=== PATIENT | male | born 1940 | race Caucasian/White ===

== ENCOUNTER → 2019-05-08 08:41 | Outpatient (CLI) | payer OTHER, SELFPAY | PROVIDERS: PCP Family Medicine; Referring Provider Urology; Visit Provider Urology | DX: N39.0 Urinary tract infection, site not specified (principal) | CPT/HCPCS: 87086; 87088; 87186 ==

== ENCOUNTER 2020-04-26 05:11 | Day surgery (SDC) | payer SELFPAY, OTHER ==
--- NOTE | 2020-04-24 13:47 | EKG12_ITS ---
Test Reason : PRE SURGERY Blood Pressure : / mmHG Vent. Rate : 070 BPM Atrial Rate : 070 BPM P-R Int : 132 ms QRS Dur : 088 ms QT Int : 386 ms P-R-T Axes : 074 080 021 degrees QTc Int : 416 ms Normal sinus rhythm Normal ECG Confirmed by PARUL JAMESON, JAVY ([id number]), editor producer SUDHEER NIELSON ([id number]) on 04/25/2020 9:21:06 AM Referred By: Lexx Paez Confirmed By:JAVY TERAN MD
[2020-04-24 15:32] LABS: Color, Urine Yellow (Yellow); Glucose, Dipstick Normal (Normal); Ketone-Dipstick Negative (Negative); Leukocyte Esterase-Dipstick 25 /ul (Negative); Nitrite-Dipstick Negative (Negative); Occult Blood-Urine 10 /ul (Negative); Protein-Dipstick Negative (Negative); Urine Bilirubin Dipstick Negative (Negative); Urine Clarity Sl. Cloudy (Clear); Urine Urobilinogen Normal (Normal)
[2020-04-26] VITALS (10 sets, daily range): BP systolic 124–166; BP diastolic 52–75; PULSE 60–90; RESP 16–18; TEMP 36.1–37.1; O2SAT 93–98; BMI 22.5
--- NOTE | 2020-04-26 | PROS_PTH ---
PATIENT: ARRON SUMMERS LOC: [facility] [place] U#:[id number] AGE/SX: 80/M ROOM: RE04/26/[address]: Dr. Lexx Paez MD : [id number] BED: DIS: 04/27/2020 SPEC #: [id number] RECD: 04/26/20 10:06 STATUS: ROXY LILI #: [id number] ARANZA: 04/26/20 00:[address]: Lexx Paez DEPT: SURGICAL PATHOLOGY RECD BY: Joaquín Mcclain ENTERED: 04/26/20 10:06 SP TYPE: TURP OTHR DR: Dr. Efrain Barahona DO Tissues: Prostate, NOS Procedures: Surgery Specimen Level IV HEADER OPERATION: Cysto, TUR prostate, Olympus PRE-OP DIAGNOSIS: Urinary retention TISSUE SUBMITTED: Prostate chips MICROSCOPIC DIAGNOSIS Prostate, transurethral resection: Benign nodular hyperplasia, glandular and stromal types. Chronic inflammation. Dystrophic microcalcifications. Urothelium with associated mild chronic inflammation. AM:cory 04/29/2020 MICROSCOPIC DESCRIPTION Slides are reviewed. GROSS DESCRIPTION Received is one container labeled with the patient's name and designated prostate chips. The specimen consists of multiple irregular fragments of pink-sheehan, rubbery, soft tissue that in aggregate weigh 18.6 gm and measure in aggregate 6 x 5 x 2.5 cm. [place] Runner tissue is submitted in ten cassettes. / SJ:cory 04/26/20 TC:3 CPT: 37515
[2020-04-26] MEDS: Lactated Ringers 1,000 ML 100 ML IV ×2 (06:21→09:37)
--- NOTE | 2020-04-26 07:23 | PCM.HP.STD ---
Problem List (1) Urinary retention Status: Acute History of Present Illness Date of Admission: 04/26/20 Chief Complaint: Retention of urine due to BPH The patient is a 80 year old male with history of BPH with obstruction he has developed urinary retention and today we plan to proceed with a TURP Past Medical History Allergies No Known Allergies Allergy (Verified 04/19/20 14:02) Home Medications: Ambulatory Orders Medication Instructions Recorded Cephalexin [Keflex] 500 mg PO Q6 04/19/20 Doxazosin Mesylate [Cardura] 8 mg PO DAILY 04/19/20 Surgical History: no surgical history Smoking Status: Former smoker Tobacco Use: Chew Review of Systems Constitutional: Denies: Chills, Fever, Weight Change HEENT: Denies: Head Aches, Sinus Congestion, Sinus Drainage Cardiovascular: Denies: Chest Pain, Palpitations Respiratory: Denies: Cough, Shortness of breath at rest, Sputum production Gastrointestinal: Denies: Abdominal Pain, Nausea, Vomiting Genitourinary: Denies: Dysuria Musculoskeletal: Denies: Joint Pain, Joint Tenderness Skin: Denies: Rash, Wounds Neurological: Denies: Numbness, Tingling, Focal weakness Psychiatric: Denies: Anxiety, Depression, Homicidal Ideations, Suicidal Ideations Hematologic/ Lymphatic: Denies: Easy Bruising, Easy Bleeding VTE Information - Inpt Only VTE Present on Admission: No - Physical Exam Vitals/I&O's: Vital Signs Temp Pulse Resp BP Pulse Ox 98.6 F 67 16 166/64 H 98 04/26/20 05:47 04/26/20 05:47 04/26/20 05:47 04/26/20 05:47 04/26/20 05:47 Oxygen Delivery Method Room Air Weight: 63.4 kg Body Mass Index (BMI) 22.5 General: Alert, Oriented x3, Cooperative HEENT: Atraumatic, PERRLA, EOMI, Normocephalic Neck: Supple, No JVD, Negative Carotid Bruits Lungs: Clear to auscultation, Normal air movement Cardiovascular: Regular rate, No murmurs Abdomen: Bowel Sounds Present, Soft, Non Tender Extremities: No edema, Capillary Refill Less than 3 Seconds Skin: No rashes, No breakdown Musculoskeletal: No Tenderness to Palpation of Joints or Extremities Neurological: Cranial nerves II-XII grossly intact Psych/Mental Status: Normal Affect, Appropriate Microbiology Past 72 Hours 04/24/20 13:55 Interface Orders SARS-CoV-2 Antigen (Rapid) - Final Current Medications Cefazolin Sodium 2 gm/ Sodium (Chloride) 110 mls @ 150 mls/hr IV PREOP ONE Stop: 04/26/20 08:13 Lactated Ringer's () 1,000 mls @ 100 mls/hr IV .Q10H CONNOR Last Admin: 04/26/20 06:21 Dose: 100 mls/hr Documented by: Assessment/Plan All Active Problems Urinary retention (Acute) Plan to proceed with a TURP
--- NOTE | 2020-04-26 07:27 | DCINST_ITS ---
Discharge Diet: Light diet - advance as tolerated Discharge Activity: Return to Normal Activity Suture Line Care: Avoid Pulling/Pushing, Avoid Pinching/Bending Instructions: Transurethral Resection of the Prostate (TURP): Home Recovery Allergies/Adverse Reactions: Allergies No Known Allergies Allergy (Verified 04/19/20 14:02) Medications to take at Discharge Cephalexin [Keflex] 500 mg PO Q6 04/19/20 Doxazosin Mesylate [Cardura] 8 mg PO DAILY 04/19/20 Cephalexin [Keflex] 500 mg PO Q8 #15 cap 04/26/20 The following prescriptions were given: Cephalexin [Keflex] 500 mg PO Q8 #15 cap Transmission Status: Pending to [facility] Primary Care Physician: Efrain Barahona DO [Primary Care Provider] - Test Results: Test results from this visit will be discussed in further detail at your follow- up appointment, if applicable. Please Follow Up With: Lexx Paez MD When: in 2 weeks, please call to make an appointment. Proposed Discharge Date: 04/27/20
[2020-04-26] MEDS: Cefazolin 2 GM in 0.9% Normal Saline 100 ML IV (07:35)
[2020-04-26] MEDS: Lubricating Jelly 60 GM Tube 30 GM TOPICAL (07:38)
--- NOTE | 2020-04-26 08:33 | PCM.OPRPT ---
Problem List (1) Urinary retention Status: Acute Report of Operation Date of Procedure: 04/26/20 Pre-Operative Diagnosis: BPH with retention of urine and obstruction Post-Operative Diagnosis: Same Surgery/Procedure Performed:: Transurethral section of prostate Description of Surgical Findings:: In the preoperative setting I discussed with the patient how the surgery would be done with expect afterwards. We discussed how a prostate resection is done and we discussed the risk of the surgery including, bleeding, infection, retrograde ejaculation, changes with ejaculation or intercourse,. We discussed the possibility that the resection of the prostate may not alleviate his urinary symptoms. We discussed the small risk of developing scar tissue along the urethral channel and strictures. We also discussed the chance of the prostate could grow back and he may need further surgery or treatment in the future for prostate problems. Patient was taken back to the operating room, timeout procedure was performed, he was identified and marked and placed on the operating room table. He underwent general anesthesia. He was placed in dorsolithotomy position. Penis and testicles were prepped and draped in usual sterile fashion. Went into the bladder using the visual obturator with a resectoscope. Once inside the bladder identified the right and left ureteral orifice. I then identified the prostate and the anatomy of the prostate. I marked out the area of the sphincter and the verumontanum was identified. I then proceeded with the prostate resection first resected the median lobe. And then resected the right lobe of the prostate. Then to resect the left lobe of the prostate. I then resected the apical tissue of the prostate. Made sure that there was no injury to the sphincter or the verumontanum was still intact. At the end of the resection all the chips were Ellik out of the bladder. I then identified the left and right ureteral orifice and these were confirmed to be in good position and effluxing and not injured. The resectoscope was removed, a 22 Belarusian catheter was placed into the bladder on continuous irrigation. And the urine was fairly light pink color and draining normally. He was taken back to the PACU in good condition. Type of Anesthesia:: General Drains: 22fr 3 way [place] - Admit VTE Documentation VTE Present on Admission: No VTE Mechan Device Prophylaxis: SCD's
[2020-04-26] MEDS: Pantoprazole Sodium 40 MG Tablet PO (11:02)
[2020-04-26] MEDS: Docusate Sodium 100 MG Capsule PO ×2 (11:02→20:27)
[2020-04-26] MEDS: 0.9% Normal Saline 1,000 ML 75 ML IV (14:34)
--- NOTE | 2020-04-26 17:14 | NURSING ---
reviewed and agree with documentation by JARED Madera
[2020-04-26] MEDS: Doxazosin 4 MG Tablet 8 MG PO (20:27)
[2020-04-27] MEDS: 0.9% Normal Saline 1,000 ML 75 ML IV (02:46)
[2020-04-27 02:54] VITALS: BP 129/66; PULSE 67; RESP 18; TEMP 36.7; O2SAT 98
[2020-04-27 08:26] VITALS: BP 150/72; PULSE 69; RESP 18; TEMP 36.8; O2SAT 94
[2020-04-27] MEDS: Pantoprazole Sodium 40 MG Tablet PO (09:01)
[2020-04-27] MEDS: Docusate Sodium 100 MG Capsule PO (09:01)
[2020-04-27 10:07] VITALS: BMI 22.6
[2020-04-27 13:11] VITALS: BP 150/72; PULSE 69; RESP 18; TEMP 36.8; O2SAT 69
== END 2020-04-27 13:23 | disposition home or self-care (01) ==
LOC: SDC 05:16 → AC 05:17 → MS3 08:10
PROVIDERS: Anesthesiology; PCP Family Medicine; Referring Provider Urology; Visit Provider Urology
PROC: (CPT 52601; principal; 2020-04-26 07:20)
DX: N40.1 Benign prostatic hyperplasia with lower urinary tract symptoms (principal); N41.1 Chronic prostatitis; N13.8 Other obstructive and reflux uropathy; R33.8 Other retention of urine; R39.14 Feeling of incomplete bladder emptying; R39.12 Poor urinary stream; R35.1 Nocturia; N32.89 Other specified disorders of bladder; Z20.822 Contact with and (suspected) exposure to COVID-19; Z87.891 Personal history of nicotine dependence
CPT/HCPCS: 00914; 52601; 81002; 87426; 88305; 93005; C9803; J7030; J7120; J2405

== ENCOUNTER 2021-06-09 13:14 | Outpatient (CLI) | payer SELFPAY, OTHER ==
--- NOTE | 2021-06-09 13:29 | ECHOD_ITS ---
Reason For Study: HYPERTENSION Procedure This was a 2D Doppler, Color Flow transthoracic echocardiogram. The study was technically difficult. Exam performed in department. Left Ventricle Normal LV size. Left ventricular systolic function is normal. The estimated ejection fraction is 55 %. Stage 1 diastolic dysfunction. No regional wall motion abnormalities noted. Right Ventricle Normal RV size. Normal systolic function. Atria Normal left atrium. Normal right atrium. Mitral Valve There is mild to moderate mitral annular calcification. Mild (1+) eccentric mitral valve insufficiency. Tricuspid Valve Normal tricuspid valve. Mild (1+) tricuspid valve insufficiency. Pulmonary artery systolic pressure is 38 mmHg. Aortic Valve Trisinus/trileaflet aortic valve. Mild focal aortic valve calcification. Peak aortic valve gradient 54 mmHg. Mean aortic valve gradient 32 mmHg. Calculated aortic valve area (continuity equation) is 0.9 cm2. Mild (1+) aortic valve insufficiency. Pulmonic Valve Normal pulmonic valve. Great Vessels Normal aortic root. The pulmonary artery is normal size. Normal inferior vena cava. Pericardium/Pleural No pericardial effusion. MMode/2D Measurements & Calculations LVIDd: 4.4 cm IVSd: 1.1 cm LVOT diam: 2.0 cm LVIDs: 3.1 cm LVPWd: 1.2 cm LVOT area: 3.1 cm2 RVDd: 2.8 cm FS: 29.4 % Ao root diam: 3.2 cm LAV(MOD-bp): 50.2 ml LVAd ap4: 34.8 cm2 LAV(MOD-bp) Indexed: 29.1 ml/m2 LVLd ap4: 8.6 cm LAV(MOD-sp2): 51.3 ml EDV(MOD-sp4): 115.0 ml LAV(MOD-sp4): 47.5 ml EDV(sp4-el): 118.9 ml LVAs ap4: 21.9 cm2 LVLs ap4: 7.3 cm ESV(MOD-sp4): 54.7 ml ESV(sp4-el): 56.1 ml EF(MOD-sp4): 52.5 % EF(sp4-el): 52.8 % LVAd ap2: 39.7 cm2 SV(MOD-sp4): 60.3 ml SV(MOD-sp2): 84.4 ml LVLd ap2: 8.8 cm EDV(MOD-sp2): 152.7 ml EDV(sp2-el): 151.7 ml LVAs ap2: 25.0 cm2 LVLs ap2: 7.8 cm ESV(MOD-sp2): 68.3 ml ESV(sp2-el): 68.1 ml EF(MOD-sp2): 55.2 % SV(sp4-el): 62.8 ml LA dimension(2D): 3.4 cm LA A4 area: 17.6 cm2 RA A4 area: 13.7 cm2 Time Measurements MV dec time: 0.25 sec Doppler Measurements & Calculations MV E max bradley: 112.8 cm/sec Lat Peak E' Bradley: 9.2 cm/sec Med Peak E' Bradley: 8.4 cm/sec MV A max bradley: 116.6 cm/sec E/E' lat: 12.3 E/E' med: 13.4 MV E/A: 0.97 Ao V2 max: 368.0 cm/sec AI max bradley: 487.0 cm/sec LV V1 max: 107.1 cm/sec Ao max P.2 mmHg AI max P.9 mmHg LV V1 max P.6 mmHg Ao V2 mean: 274.6 cm/sec LV V1 mean P.2 mmHg Ao mean P.7 mmHg AI dec slope: 363.4 cm/sec2 LV V1 mean: 68.6 cm/sec Ao V2 VTI: 84.9 cm AI P1/2t: 392.6 msec LV V1 VTI: 25.2 cm PAMELA(I,D): 0.93 cm2 PAMELA(V,D): 0.91 cm2 SV(LVOT): 78.7 ml PA V2 max: 108.7 cm/sec TR max bradley: 294.8 cm/sec TR max P.8 mmHg ECHO/Echo Complete Interpretation Summary Normal LV size. Left ventricular systolic function is normal. The estimated ejection fraction is 55 %. Stage 1 diastolic dysfunction. Mean aortic valve gradient 32 mmHg. Calculated aortic valve area (continuity equation) is 0.9 cm2. Pulmonary artery systolic pressure is 38 mmHg. There is mild to moderate mitral annular calcification. Ordering Physician: Abdiel Barclay Referring Physician: ROXANA HENRIQUEZ Performed By: Maame Nguyen RDCS
== END 2021-06-09 23:59 | disposition home or self-care (01) ==
PROVIDERS: PCP Family Medicine; Referring Provider Internal Medicine Cardiovascular Disease; Visit Provider Internal Medicine Cardiovascular Disease
DX: R03.0 Elevated blood-pressure reading, without diagnosis of hypertension (principal); R01.1 Cardiac murmur, unspecified
CPT/HCPCS: 93306

== ENCOUNTER 2022-06-07 09:05 | Inpatient (IN) | payer OTHER, SELFPAY ==
[2022-06-07] VITALS (11 sets, daily range): BP systolic 115–229; BP diastolic 62–111; PULSE 74–133; RESP 14–28; TEMP 35.9–36.7; O2SAT 85–98; BMI 24.0; BMI 22.1
--- NOTE | 2022-06-07 09:14 | EKG12_ITS ---
Test Reason : SOB Blood Pressure : / mmHG Vent. Rate : 109 BPM Atrial Rate : 109 BPM P-R Int : 120 ms QRS Dur : 084 ms QT Int : 362 ms P-R-T Axes : 069 067 084 degrees QTc Int : 487 ms Sinus tachycardia with Premature supraventricular complexes and with frequent Premature ventricular c omplexes Nonspecific T wave abnormality Abnormal ECG Confirmed by PARUL JAMESON, JAVY ([id number]), publication editor SUDHEER NIELSON ([id number]) on 06/09/2022 8:29:38 AM Referred By: GEORGE Confirmed By:JAVY TERAN MD
--- NOTE | 2022-06-07 09:17 | EX.ED.DYSGE1 ---
HPI History of Present Illness Chief Complaint: Shortness of Breath Informant: patient Onset/Context/Timing Onset: Today Narrative Narrative: Patient presents via EMS secondary to shortness of breath. He states symptoms started this morning. He denies chest pain. Patient has a known history of CHF but do not see any history of COPD or asthma. He is wheezing, and when asked he states lately he has been getting short of breath with episodes of wheezing. He denies significant fever or cough. Nursing staff noted the patient stood at bedside to use the urinal on arrival. He quickly became short of breath and his O2 sat was 85% on room air. He was tachycardic up to the 140s. 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 Psoriasis Urinary retention Home Medications lisinopril 20 mg tablet 20 mg PO DAILY #90 tabs 06/11/21 [Rx Last Taken 06/06/22] furosemide 40 mg tablet (Lasix) 40 mg PO DAILY #90 tabs 06/19/21 [Rx Last Taken 06/07/22] aspirin 325 mg tablet 325 mg PO DAILY 02/25/22 [History Last Taken 06/06/22] Allergy/AdvReac Type Severity Reaction Status Date / Time No Known Allergies Allergy Verified 02/25/22 09:48 Surgical History H/O cystoscopy (05/20/21) H/O transurethral resection of prostate (04/2020) History of excision of pilonidal cyst (05/20/21) History of hand surgery History of right knee surgery Social History Smoking Status: Former smoker alcohol intake: never substance use type: does not use caffeine: Yes maria fernanda/lutheran: Fitz ROS ROS ED Constitutional Constitutional ED: Denies chills or fever(s) Eyes Eyes: Denies change in vision or discharge from eye(s) ENT ENT ED: Denies discharge from eye(s), rhinorrhea or sore throat Cardiovascular Cardiovascular: Denies chest pain or palpitations Respiratory/Chest Respiratory/Chest: Reports dyspnea; Denies cough Gastrointestinal Gastrointestinal: Denies abdominal pain, nausea or vomiting Musculoskeletal Musculoskeletal: Denies back pain or extremity pain Integumentary Denies Abrasions or rash Neurologic Neurologic: Denies headache(s) or weakness Psychiatric Psychiatric: Denies anxiety or depression Allergic/Immunologic Allergic/Immunologic ED: Denies lip swelling or urticaria EXAM Physical Exam Const Vital Signs: 06/07/22 09:06 06/07/22 09:15 06/07/22 09:36 Temperature 96.6 F L Temperature Source Temporal Pulse Rate 133 H 118 H Respiratory Rate 28 H 24 H Respiratory Effort Short of Breath Labored Accessory Muscle Use Pursed Lip Respiratory Depth Deep Respiratory Pattern Tachypnea Tachypnea Blood Pressure 229/111 H Blood Pressure Mean 150 Pulse Ox 85 Oxygen Delivery Method Room Air Nasal Cannula Oxygen Flow Rate (L/min) 6 06/07/22 09:36 06/07/22 10:23 06/07/22 11:41 Temperature Temperature Source Pulse Rate 101 H 92 Respiratory Rate 14 Respiratory Effort Short of Breath Labored Respiratory Depth Respiratory Pattern Tachypnea Blood Pressure 149/72 H Blood Pressure Mean 97 Pulse Ox 98 95 94 Oxygen Delivery Method Nasal Cannula Nasal Cannula Nasal Cannula Oxygen Flow Rate (L/min) 3 3 3 Positive well nourished and well developed General Appearance ED: well developed HEENT Reports normocephalic and head/scalp atraumatic Eyes PERRL and EOMs intact bilaterally Neck supple Chest Wall inspection of chest normal and palpation of chest normal Resp Resp Narrative: Tachypneic with tight expiratory wheezes throughout. Cardio Rate: tachycardic Rhythm: abnormal rhythm irregularly irregular GI non-tender Palpation: soft Extremity normal to inspection Neuro oriented x3 and no sensory deficits noted Sensorium / Orientation: alert Motor Exam: strength 5/5 throughout Psych mental status grossly normal Skin no rashes or lesions noted MDM MDM MDM Narrative Medical decision making narrative: Patient placed on manager data warehouse. EKG obtained to evaluate for cardiac arrhythmia/ischemia. Chest x-ray obtained to evaluate for acute lung pathology, cardiac size, or mediastinal abnormality. Labwork obtained to evaluate for leukocytosis, anemia, and electrolyte derangement. Patient given IV Solu-Medrol along with breathing treatments. History & Record Review Discussion w/independent historian: EMS personnel Lab Data Attestation: I reviewed the patient's lab results. Labs: Laboratory Results - last 24 hr 06/07/22 06/07/22 06/07/22 09:17 09:17 09:17 WBC 12.9 H RBC 5.37 Hgb 14.9 Hct 45.6 MCV 84.9 MCH 27.7 MCHC 32.7 RDW Std Deviation 43.0 RDW Coeff of Zhao 13.9 Plt Count 326 MPV 10.6 Immature Gran % (Auto) 0.200 Neut % (Auto) 66.4 Lymph % (Auto) 20.6 [place] % (Auto) 7.5 Eos % (Auto) 4.5 Baso % (Auto) 0.8 Absolute Neuts (auto) 8.6 H Absolute Lymphs (auto) 2.66 Nucleated RBC % 0 D-Dimer Quant (PE/DVT) 1.32 H* Sodium 142 Potassium 3.5 Chloride 107 Carbon Dioxide 29.0 Anion Gap 6 BUN 24 H Creatinine 1.21 Estim Creat Clear Calc 41.74 Est GFR (MDRD) Af Amer 74 Est GFR (MDRD) Non-Af 61 BUN/Creatinine Ratio 19.8 Glucose 132 H Calcium 8.8 Total Bilirubin 0.80 Direct Bilirubin 0.23 AST 17 ALT 25 Alkaline Phosphatase 146 H Troponin I High Sens 92 H B-Natriuretic Peptide Total Protein 8.9 H Albumin 4.2 Globulin 4.7 H Urine Color Urine Clarity Urine pH Ur Specific [place] Urine Protein Urine Glucose (UA) Urine Ketones Urine Occult Blood Urine Nitrite Urine Bilirubin Urine Urobilinogen Ur Leukocyte Esterase 06/07/22 06/07/22 06/07/22 09:17 11:30 11:54 WBC RBC Hgb Hct MCV MCH MCHC RDW Std Deviation RDW Coeff of Zhao Plt Count MPV Immature Gran % (Auto) Neut % (Auto) Lymph % (Auto) [place] % (Auto) Eos % (Auto) Baso % (Auto) Absolute Neuts (auto) Absolute Lymphs (auto) Nucleated RBC % D-Dimer Quant (PE/DVT) Sodium Potassium Chloride Carbon Dioxide Anion Gap BUN Creatinine Estim Creat Clear Calc Est GFR (MDRD) Af Amer Est GFR (MDRD) Non-Af BUN/Creatinine Ratio Glucose Calcium Total Bilirubin Direct Bilirubin AST ALT Alkaline Phosphatase Troponin I High Sens 250 H* B-Natriuretic Peptide 1076.8 H Total Protein Albumin Globulin Urine Color Straw Urine Clarity Clear Urine pH 7.0 Ur Specific [place] 1.010 Urine Protein Negative Urine Glucose (UA) Normal Urine Ketones Negative Urine Occult Blood 10 H Urine Nitrite Negative Urine Bilirubin Negative Urine Urobilinogen Normal Ur Leukocyte Esterase Negative Radiography Chest X-Ray - ED: 1 View, Read by ED Physician and CHF Diagnostic Testing: Clinical Impression(s) from Imaging Studies Chest X-Ray 06/07/22 09:41 IMPRESSION: Acute or chronic interstitial lung disease, possibly atypical pneumonia. Electronically Signed: Felice Smith MD at 10:23 EDT Reading Location ID and State: [id number] / Night Up Tel , Service support , Chest CTA 06/07/22 09:52 IMPRESSION: No CT evidence of pulmonary embolism. Moderate bilateral pleural effusions with bibasilar atelectasis. Electronically Signed: Felice Smith MD at 11:37 EDT Reading Location ID and State: [id number] / Night Up Tel , Service support , EKG Initial EKG: Attestation: I personally reviewed and interpreted this EKG as follows: Interpretation: Sinus Tachycardia (Sinus tach at 109 with PACs. No acute ST change.) Differential Diagnosis Chest pain/SOB: pulmonary embolism Reason(s) PE less likely: Positive for Other (CTA chest with no evidence of PE.), ACS ACS: Positive for EKG without ischemia and history not suggestive of ischemia pain and pneumonia Reason(s) pneumonia less likely: Positive for symptoms not consistent with acute infection Management Discussion w/another healthcare provider: Hospitalist Treatment and Re-Evaluation :: CBC reveals a white count of 12.9 with no left shift. Chemistry studies unremarkable. Initial troponin is 92. BNP is 1076. D-dimer is 1.32. Following breathing treatments patient's lung sounds have cleared considerably. Heart rate is improved and oxygen has been turned down to 3 L. He is satting 96% on 3 L. Portable chest x-ray per my interpretation reveals CHF. CTA of the chest is obtained and reveals no evidence of pulmonary embolism. At this time patient is given IV Lasix. Nursing staff did ask about placing a [place] catheter as the patient was having frequent at times at urination with only small output and complaining of suprapubic pain. Callaway catheter was placed without difficulty. I will add a UA at this time to ensure no infection. Delta troponin is being drawn currently. Patient will require admission and I will speak with the hospitalist. Addendum: Patient's repeat troponin returns at 250. Patient continues to deny any chest pain. Discharge Plan Dx/Rx/DC Orders Clinical Impression: CHF (congestive heart failure), Respiratory failure, Elevated troponin, Non-ST elevation [place] (NSTEMI) Disposition Disposition: Acute Care Hospital [facility]
[2022-06-07 09:25] LABS: Absolute Lymphocyte Count 2.66 X10^3/uL (0.83-4.51); Absolute Neutrophil Count 8.6 X10^3/uL (2.0-7.7); Basophil% 0.8 % (0-1); Eosinophil# 0.58 X10^3/uL; Eosinophils% 4.5 % (0-5); Hematocrit 45.6 % (40-54); Hemoglobin 14.9 g/dL (13.0-16.5); Lymphocyte # 2.66 X10^3/ul (0.83-4.51); Lymphocyte % 20.6 % (19-41); Mean Corp Hgb Conc 32.7 g/dL (32-36); Mean Corpuscular Hgb 27.7 pg (27.0-32.0); Mean Corpuscular Volume 84.9 fL (80-94); Mean Platelet Vol. 10.6 fl (6.2-12.0); Monocyte# 0.97 X10^3/uL; Monocyte% 7.5 % (0-10); NRBC Flagged by Analyzer 0 % (0-5); Neutrophil # 8.57 X10^3/uL (2.7-7.7); Neutrophil % 66.4 % (47-70); Platelet Count 326 K/mm3 (150-450); RBC Distribution Width CV 13.9 % (11.6-14.6); Red Blood Count 5.37 M/mm3 (4.6-6.2); White Blood Count 12.9 K/mm3 (4.4-11.0)
[2022-06-07] MEDS: MethylPREDNISolone 125 MG/2 ML Vial IV (09:25)
[2022-06-07] MEDS: Ipratropium/Albuterol Sulfate 3 ML AMPUL.NEB INHALATION (09:25)
[2022-06-07] MEDS: Albuterol 2.5 MG/3 ML VIAL.NEB. INHALATION ×2 (09:35)
[2022-06-07 09:41] LABS: D-Dimer Quantitative (DVT/PE) 1.32 FEU/ug/m (0.27-0.49)
--- NOTE | 2022-06-07 09:41 | RAD_ITS ---
STUDY: X-RAY CHEST REASON FOR EXAM: Male, 82 years old. sob TECHNIQUE: Single AP portable view of the chest. COMPARISON: None. FINDINGS: Reticular opacities within the lungs consistent with acute or chronic interstitial lung disease, possibly atypical pneumonia. There is no demonstrated pleural abnormality. Normal size heart. Normal mediastinum and maria elena. Normal visualized pulmonary arteries. Normal visualized aortic arch and descending thoracic aorta. Normal visualized thoracic spine. Normal visualized ribs, clavicles, and shoulders. There is no demonstrated abnormality of the visualized soft tissue structures of the upper abdomen. RAD/Chest 1 View (Portable) IMPRESSION: Acute or chronic interstitial lung disease, possibly atypical pneumonia. Electronically Signed: Felice Smith MD at 10:23 EDT ,
[2022-06-07 09:46] LABS: BNP,B-Type NATRIURETIC PEPTIDE 1076.8 pg/mL (0-100)
--- NOTE | 2022-06-07 09:46 | CPS ---
Albuterol discontinued due to an increase in patient heart rate, 120's
[2022-06-07 09:49] LABS: AST(SGOT) 17 U/L (15-37); Alanine Aminotransfer ALT/SGPT 25 U/L (16-61); Albumin, Serum 4.2 g/dL (3.2-5.0); Alkaline Phosphatase 146 U/L (45-117); Anion Gap 6 (5-15); BUN 24 mg/dL (7-18); BUN/Creat Ratio 19.8 RATIO (10-20); Bilirubin, Direct 0.23 mg/dL (0.00-0.30); Calcium,Total 8.8 mg/dL (8.5-10.1); Chloride 107 mmol/L (98-107); Creatinine, Serum 1.21 mg/dL (0.70-1.30); EST Glomerular Filtration Rate 61 mL/min (>60); Est Glom Filt Rate - Afr Amer 74 mL/min (>60); Estimated Creatinine Clearance 41.74 ml/min; Globulin 4.7 g/dL (2.2-4.2); Glucose 132 mg/dL (74-106); Potassium 3.5 mmol/L (3.5-5.1); Protein, Total 8.9 g/dL (6.4-8.2); Sodium Level 142 mmol/L (136-145); Troponin-I HS (w/2H Reflex) 92 pg/mL (3.0-78.0)
--- NOTE | 2022-06-07 09:52 | CT_ITS ---
STUDY: CTA CHEST REASON FOR EXAM: Male, 82 years old. pulmonary embolism RADIATION DOSAGE (If Supplied By Facility): CTDIvol = ( 8.94 ) mGy, DLP = ( 219.5 ) mGycm TECHNIQUE: The examination was performed with the intravenous administration of IV 100mL Isovue-370. Post-processing of the angiographic images was performed, with multiplanar reformation and 3D reconstruction. Individualized dose optimization techniques were used for this CT. COMPARISON: None. FINDINGS: Normal enhancement of the main pulmonary artery and right and left pulmonary arteries. Normal enhancement of the bilateral peripheral pulmonary arteries. There is no demonstrated pulmonary embolism. Normal thoracic aorta and visualized great vessels. There is no demonstrated aortic dissection. Normal heart and pericardium. Normal mediastinum. Normal hilar regions. Normal visualized trachea and bronchi. The lungs are well expanded. Mild bilateral apical scarring. Mild emphysema. Moderate bilateral pleural effusions with bibasilar atelectasis. Normal chest wall structures. Normal osseous structures. Normal visualized upper abdomen. CT/CTA Chest W/WO Contrast IMPRESSION: No CT evidence of pulmonary embolism. Moderate bilateral pleural effusions with bibasilar atelectasis. Electronically Signed: Felice Smith MD at 11:37 EDT ,
--- NOTE | 2022-06-07 10:00 | ED.RN ---
attemptin to urinate multiple times with very small amounts. c/ pain to lower abd. bladder scan reads greater than 500cc dr yun notified. order for catheter.
[2022-06-07 11:22] LABS: Reflex Troponin-HS? (from REC) Y
[2022-06-07] MEDS: Furosemide 40 MG/4 ML Vial IV ×2 (11:49→17:32)
[2022-06-07 11:57] LABS: Bacteria 0 SEEN /hpf (None Seen); Mucous, Urine 0 SEEN /hpf (<or=2+); Red Blood Cells-Urine 0 SEEN /hpf (0-5); Squamous Epithelial Cells - UA 0 SEEN /hpf (0-5); White Blood Cells 0 SEEN /hpf (0-5)
[2022-06-07 11:57] LABS: Troponin-I HS 250 pg/mL (3.0-78.0)
[2022-06-07 11:58] LABS: Color, Urine Straw (Yellow); Glucose, Dipstick Normal (Normal); Ketone-Dipstick Negative (Negative); Leukocyte Esterase-Dipstick Negative /ul (Negative); Nitrite-Dipstick Negative (Negative); Occult Blood-Urine 10 /ul (Negative); Protein-Dipstick Negative (Negative); Urine Bilirubin Dipstick Negative (Negative); Urine Clarity Clear (Clear); Urine Urobilinogen Normal (Normal)
--- NOTE | 2022-06-07 12:14 | PCM.HP.STD ---
[facility] - General General Date of Admission: 06/07/22 Date of Service: 06/07/22 Chief Complaint: Sudden onset of shortness of breath in the morning today. HPI Narrative ARRON SUMMERS, is a 82 M with history of moderate aortic stenosis and chronic. HFpEF was brought to ED by EMS for sudden onset of shortness of breath in the morning today. Patient usually walks outside home but for last 3 to 4 days he was getting short of breath even on walking 100 feet. He can climb stairs. He denies chest pain pressure tightness. As per the ER physician he was more wheezy and chest tightness in the beginning but got much better improved after giving Lasix 40 mg IV 1 dose. 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 No fever. As per the EMS vitals, his blood pressure was very high at 250/106, RR 25/min heart rate 120s. In ED, he was labored breathing, tachypneic, hypoxic pulse ox 85% on room air. Currently 94% on 3 L of oxygen BP 149/72, heart rate 92/min Patient has history of BPH status post TURP in April [address] Paez. Patient states he has mild hesitancy and takes longer time to empty bladder but otherwise no recent urine retention. Denies burning micturition. Social history: Patient quit smoking altogether 3 years ago, 2018. Prior to that he was just smoking 3 cigarettes/day times nontobacco smoker. Denies chronic drinking alcohol or substance use. Family history noncontributory to the present illness [facility] Medical History (HFpEF) heart failure with preserved ejection fraction BPH (benign prostatic hyperplasia) Cardiac murmur Elevated blood pressure reading in office without diagnosis of hypertension Essential hypertension Mitral valve annular calcification Nonrheumatic aortic (valve) stenosis with insufficiency Psoriasis Urinary retention Home Medications lisinopril 20 mg tablet 20 mg PO DAILY #90 tabs 06/11/21 [Rx Last Taken 06/06/22] furosemide 40 mg tablet (Lasix) 40 mg PO DAILY #90 tabs 06/19/21 [Rx Last Taken 06/07/22] aspirin 325 mg tablet 325 mg PO DAILY 02/25/22 [History Last Taken 06/06/22] Allergy/AdvReac Type Severity Reaction Status Date / Time No Known Allergies Allergy Verified 02/25/22 09:48 Surgical History H/O cystoscopy (05/20/21) H/O transurethral resection of prostate (04/2020) History of excision of pilonidal cyst (05/20/21) History of hand surgery History of right knee surgery Social History Smoking Status: Former smoker alcohol intake: never substance use type: does not use caffeine: Yes maria fernanda/jew: Fitz ROS ROS Narrative Constitutional: Reports sudden onset of fatigue and weakness and shortness of breath as described in HPI. 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 History of mild intermittent asthma. CVS: Denies prior history of MA. Mild dizziness on stooping down. Dyspnea on exertion for last 1 week Gastrointestinal: Denies coffee ground emesis, hematemesis or vomiting Genitourinary: As described in HPI Musculoskeletal: Denies joint pain and limited range of motion. Had right knee replaced Neurologic: Denies seizure-like activity. No prior stroke. skin: No ulcer. No rash Endocrinology: Reports systems reviewed and no addt'l complaints, except as documented Hematologic/Lymphatic: Reports systems reviewed and no addt'l complaints, except as documented Rest 14 ROS are negative except as mentioned in HPI Vital Signs Vital Signs Vital Signs: 06/07/22 09:06 06/07/22 09:15 06/07/22 09:36 Temperature 96.6 F L Temperature Source Temporal Pulse Rate 133 H 118 H Respiratory Rate 28 H 24 H Respiratory Effort Short of Breath Labored Accessory Muscle Use Pursed Lip Respiratory Depth Deep Respiratory Pattern Tachypnea Tachypnea Blood Pressure 229/111 H Blood Pressure Mean 150 Pulse Ox 85 Oxygen Delivery Method Room Air Nasal Cannula Oxygen Flow Rate (L/min) 6 06/07/22 09:36 06/07/22 10:23 06/07/22 11:41 Temperature Temperature Source Pulse Rate 101 H 92 Respiratory Rate 14 Respiratory Effort Short of Breath Labored Respiratory Depth Respiratory Pattern Tachypnea Blood Pressure 149/72 H Blood Pressure Mean 97 Pulse Ox 98 95 94 Oxygen Delivery Method Nasal Cannula Nasal Cannula Nasal Cannula Oxygen Flow Rate (L/min) 3 3 3 06/07/22 12:11 Temperature Temperature Source Pulse Rate 85 Respiratory Rate 16 Respiratory Effort Respiratory Depth Respiratory Pattern Blood Pressure 152/65 H Blood Pressure Mean 94 Pulse Ox 97 Oxygen Delivery Method Nasal Cannula Oxygen Flow Rate (L/min) 3 Weight Weight: 149 lb 0.52 oz Body Mass Index (BMI) 24.0 Physical Exam Narrative Physical exam General: Alert, Oriented x3, Cooperative HEENT: Atraumatic, PERRLA, EOMI, Normocephalic Oral: Oral mucosa dry. No Gingival or Mucosal Lesions/ Ulcerations Neck: Supple, No JVD, Negative Carotid Bruits Lungs: Air entry diminished in bilateral lung bases. Mild bilateral effusion. No wheezing or crepitation but Lasix was given prior to my exam Cardiovascular: sinus rhythm, Normal S1, Normal S2, ejection systolic murmur grade 3/6 over right second ICS and SSB. Abdomen: Bowel Sounds Present, Soft, Non Tender, Non-Distended : No renal angle tenderness. No suprapubic tenderness. Extremities: No edema, Capillary Refill Less than 3 Seconds Skin: No rashes, No breakdown Musculoskeletal: Right TKR. ROM full. Muscle strength 5/5 at major joints of lower extremities. No Tenderness to Palpation of Joints or Extremities Neurological: Cranial nerves II-XII grossly intact, DTR 2+/4 and Symmetrical, Neuro grossly intact Psych/Mental Status: Normal Affect, Appropriate. Results Lab / Micro Data Result Diagrams: 06/07/22 09:17 06/07/22 09:17 Labs: Laboratory Results - last 24 hr 06/07/22 09:17: WBC 12.9 H, RBC 5.37, Hgb 14.9, Hct 45.6, MCV 84.9, MCH 27.7, MCHC 32.7, RDW Std Deviation 43.0, RDW Coeff of Zhao 13.9, Plt Count 326, MPV 10.6, Immature Gran % (Auto) 0.200, Neut % (Auto) 66.4, Lymph % (Auto) 20.6, Bailey % (Auto) 7.5, Eos % (Auto) 4.5, Baso % (Auto) 0.8, Absolute Neuts (auto) 8.6 H, Absolute Lymphs (auto) 2.66, Nucleated RBC % 0 06/07/22 09:17: D-Dimer Quant (PE/DVT) 1.32 H* 06/07/22 09:17: Sodium 142, Potassium 3.5, Chloride 107, Carbon Dioxide 29.0, Anion Gap 6, BUN 24 H, Creatinine 1.21, Estim Creat Clear Calc 41.74, Est GFR (MDRD) Af Amer 74, Est GFR (MDRD) Non-Af 61, BUN/Creatinine Ratio 19.8, Glucose 132 H, Calcium 8.8, Total Bilirubin 0.80, Direct Bilirubin 0.23, AST 17, ALT 25, Alkaline Phosphatase 146 H, Troponin I High Sens 92 H, Total Protein 8.9 H, Albumin 4.2, Globulin 4.7 H 06/07/22 09:17: B-Natriuretic Peptide 1076.8 H 06/07/22 11:30: Troponin I High Sens 250 H* 06/07/22 11:54: Urine Color Straw, Urine Clarity Clear, Urine pH 7.0, Ur Specific [place] 1.010, Urine Protein Negative, Urine Glucose (UA) Normal, Urine Ketones Negative, Urine Occult Blood 10 H, Urine Nitrite Negative, Urine Bilirubin Negative, Urine Urobilinogen Normal, Ur Leukocyte Esterase Negative, Urine RBC 0 SEEN, Urine WBC 0 SEEN, Ur Squamous Epith Cells 0 SEEN, Urine Bacteria 0 SEEN, Urine Mucus 0 SEEN Radiology Impression Chest X-Ray 06/07/22 09:41 IMPRESSION: Acute or chronic interstitial lung disease, possibly atypical pneumonia. Electronically Signed: Felice Smith MD at 10:23 EDT Reading Location ID and State: [employer] Tel , Service support , Chest CTA 06/07/22 09:52 IMPRESSION: No CT evidence of pulmonary embolism. Moderate bilateral pleural effusions with bibasilar atelectasis. Electronically Signed: Felice Smith MD at 11:37 EDT Reading Location ID and State: [id number] / [employer] Tel , Service support , Assessment & Plan Assessment/Plan (1) Acute on chronic heart failure with preserved ejection fraction (HFpEF): (2) Non-ST elevation MA (NSTEMI): PLAN: Plan This is a 32-year-old nice gentleman is being admitted for further elbow sudden onset of shortness of breath, elevated troponin and clinical eval consistent of acute on chronic HFpEF and non-STEMI 1. Acute on chronic HFpEF may be precipitated by non-STEMI: Patient is being admitted in PCU. Started on Lasix 40 mg IV twice daily. Patient had good diuresis in the ER with 1 dose of Lasix 40 mg about 2 litre. Twelve-lead EKG was done, individually reviewed. Sinus tachycardia with PVCs and occasional supraventricular complexes. Nonspecific ST-T abnormality. First troponin was 92, second troponin high at 250. BNP high. We will repeat third troponin after 6 hours of force. Repeat EKG on the floor. Started on Lasix 40 mg IV twice daily. Vest Tailor consulted and discussed with him. Started on heparin drip with bolus. Continue aspirin. Started on low-dose Coreg 3.125 twice daily, lisinopril and high intensity statin. Patient might need cardiac cath although he never had it. Heart failure core measures including intake and output, fluid restriction less than 1500 mL, daily weight monitoring, kidney and electrolytes monitoring. 2. Hypertensive urgency: Patient BP was very high systolic about 250. Most recent is 149/72. We will try to keep about systolic 150 for next 24 hours. Patient on lisinopril and continued. Avoid sudden drop in BP less than 120 mmHg. 3. Nonrheumatic moderate aortic stenosis with mild AI: Patient follows Dr. Barclay last seen February 2022. At that time was not interested in valve replacement but wanted medical treatment. On ELIAS inhibitor and diuretic. 4.. BPH with history of urinary retention status post TURP: [place] catheter inserted in ED for accurate measurement of intake and output, on IV Lasix. Urine is clear. Patient denied history of new lower urinary tract symptoms or UTI symptoms. Patient not on Flomax. UA bland and negative for pyuria, LE and nitrite. 5. Other comorbidities include psoriasis: I do not see obvious psoriatic patch on exam. Is controlled Living will/advanced directive/end of life care: Patient does have living will or advanced directive. I discussed with patient his and son present in the room. His is power of civil litigation attorney for health. After discussion of benefits/risks procedures involved with full code, DNR CC arrest and DNR CC, the patient opted for DNRCC arrest with no intubation and patient's family present are in agreement. Patient doesn't want artificial life support including intubation, tube feed, ventilator and/chest compression, central venous catheter, vasopressor and DC shock if needed Total time spent in [id number] encounter in discussion of advanced directive 17 minutes. Laboratory Results 06/07/22 09:17: WBC 12.9 H, RBC 5.37, Hgb 14.9, Hct 45.6, MCV 84.9, MCH 27.7, MCHC 32.7, RDW Std Deviation 43.0, RDW Coeff of Zhao 13.9, Plt Count 326, MPV 10.6, Immature Gran % (Auto) 0.200, Neut % (Auto) 66.4, Lymph % (Auto) 20.6, Bailey % (Auto) 7.5, Eos % (Auto) 4.5, Baso % (Auto) 0.8, Absolute Neuts (auto) 8.6 H, Absolute Lymphs (auto) 2.66, Nucleated RBC % 0 06/07/22 09:17: D-Dimer Quant (PE/DVT) 1.32 H* 06/07/22 09:17: Sodium 142, Potassium 3.5, Chloride 107, Carbon Dioxide 29.0, Anion Gap 6, BUN 24 H, Creatinine 1.21, Estim Creat Clear Calc 41.74, Est GFR (MDRD) Af Amer 74, Est GFR (MDRD) Non-Af 61, BUN/Creatinine Ratio 19.8, Glucose 132 H, Calcium 8.8, Total Bilirubin 0.80, Direct Bilirubin 0.23, AST 17, ALT 25, Alkaline Phosphatase 146 H, Troponin I High Sens 92 H, Total Protein 8.9 H, Albumin 4.2, Globulin 4.7 H 06/07/22 09:17: B-Natriuretic Peptide 1076.8 H 06/07/22 09:17: PT 13.7, INR 1.1, APTT 28.7 06/07/22 09:17: Phosphorus Pending, Magnesium Pending 06/07/22 11:30: Troponin I High Sens 250 H* 06/07/22 11:54: Urine Color Straw, Urine Clarity Clear, Urine pH 7.0, Ur Specific [place] 1.010, Urine Protein Negative, Urine Glucose (UA) Normal, Urine Ketones Negative, Urine Occult Blood 10 H, Urine Nitrite Negative, Urine Bilirubin Negative, Urine Urobilinogen Normal, Ur Leukocyte Esterase Negative, Urine RBC 0 SEEN, Urine WBC 0 SEEN, Ur Squamous Epith Cells 0 SEEN, Urine Bacteria 0 SEEN, Urine Mucus 0 SEEN Charges/Coding Visit Charges Inpatient E&M: 73356 Init Hosp L3 Procedures Hospitalists Procedures: 25452 Advncd Care Plan 30 Min
[2022-06-07 12:38] LABS: International Normalized Ratio 1.1; Partial Thromboplast Time 28.7 Seconds (24.1-36.2); Prothrombin Time (Protime)PT. 13.7 SECONDS (11.7-14.9)
[2022-06-07] MEDS: HEPARIN/D5w 25,000 UNITS 25,000 UNITS/250 ML IV.SOLN. 8 UNITS CONT INF (12:40)
[2022-06-07] MEDS: Heparin Injection (Vial) 5,000 UNIT/ML VIAL 4000 UNIT IV (12:40)
[2022-06-07 13:14] LABS: Magnesium 1.9 mg/dL (1.6-2.6); Phosphorus 2.1 mg/dL (2.5-4.9)
[2022-06-07 16:20] LABS: Troponin-I HS 345 pg/mL (3.0-78.0)
[2022-06-07] MEDS: Carvedilol 3.125 MG TABLET PO (17:32)
[2022-06-07] MEDS: 0.9% Saline Lock 10 ML Syringe IV (17:32)
[2022-06-07] MEDS: Atorvastatin Calcium 40 MG Tablet PO (19:57)
[2022-06-07] MEDS: Heparin Injection (Vial) 5,000 UNIT/ML VIAL IV (20:03)
--- NOTE | 2022-06-07 20:46 | EKG12_ITS ---
Test Reason : ELEVATED TROPONINS Blood Pressure : / mmHG Vent. Rate : 081 BPM Atrial Rate : 081 BPM P-R Int : 142 ms QRS Dur : 088 ms QT Int : 424 ms P-R-T Axes : 036 062 103 degrees QTc Int : 492 ms Sinus rhythm with marked sinus arrhythmia Moderate voltage criteria for LVH, may be normal variant ( Sokolow-Paiz , Roll product ) Nonspecific T wave abnormality Prolonged QT Abnormal ECG When compared with ECG of 07-JUN-2022 09:27, MANUAL COMPARISON REQUIRED, DATA IS UNCONFIRMED Confirmed by PARUL JAMESON, JAVY ([id number]), assignment editor SUDHEER NIELSON ([id number]) on 06/09/2022 9:05:18 AM Referred By: BENSON Confirmed By:JAVY TERAN MD
[2022-06-08] VITALS (7 sets, daily range): BP systolic 99–164; BP diastolic 53–65; PULSE 63–77; RESP 16–18; TEMP 36.3–37; O2SAT 94–98; BMI 22.4
[2022-06-08 02:28] LABS: Absolute Lymphocyte Count 0.77 X10^3/uL (0.83-4.51); Absolute Neutrophil Count 7.7 X10^3/uL (2.0-7.7); Hematocrit 40.8 % (40-54); Hemoglobin 13.2 g/dL (13.0-16.5); Lymphocyte # 0.77 X10^3/ul (0.83-4.51); Lymphocyte % 8.6 % (19-41); Mean Corp Hgb Conc 32.4 g/dL (32-36); Mean Corpuscular Hgb 27.7 pg (27.0-32.0); Mean Corpuscular Volume 85.5 fL (80-94); Mean Platelet Vol. 10.9 fl (6.2-12.0); Monocyte# 0.44 X10^3/uL; Monocyte% 4.9 % (0-10); NRBC Flagged by Analyzer 0 % (0-5); Neutrophil # 7.72 X10^3/uL (2.7-7.7); Neutrophil % 86.2 % (47-70); Platelet Count 290 K/mm3 (150-450); RBC Distribution Width CV 13.9 % (11.6-14.6); RBC Distribution Width SD 43.2 fl (35.1-43.9); Red Blood Count 4.77 M/mm3 (4.6-6.2)
[2022-06-08 02:36] LABS: Partial Thromboplast Time 77.8 Seconds (24.1-36.2)
[2022-06-08 02:55] LABS: ALB/GLOB Ratio 0.8 RATIO (0.9-2.4); AST(SGOT) 15 U/L (15-37); Alanine Aminotransfer ALT/SGPT 19 U/L (16-61); Albumin, Serum 3.3 g/dL (3.2-5.0); Alkaline Phosphatase 116 U/L (45-117); Anion Gap 7 (5-15); BUN 27 mg/dL (7-18); BUN/Creat Ratio 17.8 RATIO (10-20); Calcium,Total 8.5 mg/dL (8.5-10.1); Chloride 101 mmol/L (98-107); Cholesterol 203 mg/dL (200); Creatinine, Serum 1.52 mg/dL (0.70-1.30); EST Glomerular Filtration Rate 47 mL/min (>60); Est Glom Filt Rate - Afr Amer 57 mL/min (>60); Globulin 4.2 g/dL (2.2-4.2); Glucose 175 mg/dL (74-106); High Density Lipoprotein 51 mg/dL; Potassium 3.7 mmol/L (3.5-5.1); Protein, Total 7.5 g/dL (6.4-8.2); Sodium Level 139 mmol/L (136-145); Thyroid Stim Hormone (TSH) 0.45 uIU/mL (0.358-3.74); Triglycerides 76 mg/dL; Very Low Density Lipoprotein 15 mg/dL (5-40)
--- NOTE | 2022-06-08 05:55 | ECHOD_ITS ---
Reason For Study: NSTEMI Procedure This was a 2D Doppler, Color Flow transthoracic echocardiogram. Exam performed portable in patient room. Left Ventricle Normal LV size. Left ventricular systolic function is normal. The estimated ejection fraction is 55 %. No regional wall motion abnormalities noted. Right Ventricle Normal RV size. Normal systolic function. Atria The left atrium is mildly enlarged. Normal right atrium. Mitral Valve There is mild to moderate mitral annular calcification. Mild (1+) eccentric mitral valve insufficiency. Aortic Valve The aortic valve is not well visualized. Moderate focal aortic valve calcification. Peak aortic valve gradient 54 mmHg. Mean aortic valve gradient 30 mmHg. Moderate aortic stenosis. Mild (1+) aortic valve insufficiency. Pulmonic Valve Normal pulmonic valve. Great Vessels Normal aortic root. The pulmonary artery is normal size. Normal inferior vena cava. Pericardium/Pleural No pericardial effusion. MMode/2D Measurements & Calculations LAV(MOD-bp): 72.4 ml LVAd ap4: 34.2 cm2 SV(MOD-sp4): 83.4 ml LAV(MOD-bp) Indexed: 42.4 ml/m2 LVLd ap4: 8.5 cm LAV(MOD-sp2): 64.1 ml EDV(MOD-sp4): 116.7 ml LAV(MOD-sp4): 77.9 ml EDV(sp4-el): 117.1 ml LVAs ap4: 15.6 cm2 LVLs ap4: 6.2 cm ESV(MOD-sp4): 33.3 ml ESV(sp4-el): 33.3 ml EF(MOD-sp4): 71.5 % EF(sp4-el): 71.6 % SV(sp4-el): 83.9 ml LA dimension(2D): 4.3 cm LA A4 area: 23.2 cm2 RA A4 area: 12.0 cm2 Time Measurements MV dec time: 0.28 sec Doppler Measurements & Calculations MV E max bradley: 80.2 cm/sec Lat Peak E' Bradley: 10.1 cm/sec Med Peak E' Bradley: 6.1 cm/sec MV A max bradley: 101.9 cm/sec E/E' lat: 8.0 E/E' med: 13.1 MV E/A: 0.79 MV V2 max: 118.2 cm/sec Ao V2 max: 364.9 cm/sec MV max P.6 mmHg MV dec slope: 302.2 cm/sec2 Ao max P.8 mmHg MV V2 mean: 72.4 cm/sec Ao V2 mean: 248.5 cm/sec MV mean P.3 mmHg Ao mean P.4 mmHg MV V2 VTI: 39.0 cm Ao V2 VTI: 82.5 cm AV (velocity ratio): 0.33 AI max bradley: 414.7 cm/sec LV V1 max: 122.3 cm/sec AI max P.9 mmHg LV V1 max P.0 mmHg LV V1 mean P.3 mmHg AI dec slope: 353.3 cm/sec2 LV V1 mean: 87.1 cm/sec AI P1/2t: 343.8 msec LV V1 VTI: 27.0 cm ECHO/Echo Complete Interpretation Summary Normal LV size. Left ventricular systolic function is normal. The estimated ejection fraction is 55 %. Moderate focal aortic valve calcification. Mean aortic valve gradient 30 mmHg. Moderate aortic stenosis. Compared to the previous echocardiogram from a year ago the aortic valve gradie nts and area is the same. Compared to previous study, the left ventricular systolic function is the same.. Ordering Physician: Santosh Nolan Referring Physician: ROXANA HENRIQUEZ Performed By: Micaela Jones RCS
--- NOTE | 2022-06-08 07:25 | PCM.PN.CARD ---
Subjective Subjective Patient seen and evaluated. Appears to be doing better this morning. Objective Data Vital Signs: Vital Signs Temp Pulse Resp BP Pulse Ox O2 Del Method O2 Flow Rate 97.4 F L 68 18 128/56 H 98 Room Air 2 06/08/22 02:45 06/08/22 02:45 06/08/22 02:45 06/08/22 02:45 06/08/22 02:45 06/08/22 02:45 06/07/22 13:34 Oxygen Flow Rate (L/min) 2 Oxygen Delivery Method Room Air Weight: 138 lb 10.732 oz Body Mass Index (BMI) 22.4 Intake & Output: Intake and Output for Last 24 Hours 06/06/22 06/07/22 06/08/22 23:59 23:59 23:59 Intake Total 620.07 / 620.07 59.4 / 59.4 Output Total 1320 / 1320 200 / 200 Balance -699.93 / -699.93 -140.6 / -140.6 Lab / Micro Data Result Diagrams: 06/08/22 01:55 06/08/22 01:55 Labs: Laboratory Results - last 24 hr 06/07/22 09:17: WBC 12.9 H, RBC 5.37, Hgb 14.9, Hct 45.6, MCV 84.9, MCH 27.7, MCHC 32.7, RDW Std Deviation 43.0, RDW Coeff of Zhao 13.9, Plt Count 326, MPV 10.6, Immature Gran % (Auto) 0.200, Neut % (Auto) 66.4, Lymph % (Auto) 20.6, [place] % (Auto) 7.5, Eos % (Auto) 4.5, Baso % (Auto) 0.8, Absolute Neuts (auto) 8.6 H, Absolute Lymphs (auto) 2.66, Nucleated RBC % 0 06/07/22 09:17: D-Dimer Quant (PE/DVT) 1.32 H* 06/07/22 09:17: Sodium 142, Potassium 3.5, Chloride 107, Carbon Dioxide 29.0, Anion Gap 6, BUN 24 H, Creatinine 1.21, Estim Creat Clear Calc 41.74, Est GFR (MDRD) Af Amer 74, Est GFR (MDRD) Non-Af 61, BUN/Creatinine Ratio 19.8, Glucose 132 H, Calcium 8.8, Total Bilirubin 0.80, Direct Bilirubin 0.23, AST 17, ALT 25, Alkaline Phosphatase 146 H, Troponin I High Sens 92 H, Total Protein 8.9 H, Albumin 4.2, Globulin 4.7 H 06/07/22 09:17: B-Natriuretic Peptide 1076.8 H 06/07/22 09:17: PT 13.7, INR 1.1, APTT 28.7 06/07/22 09:17: Phosphorus 2.1 L, Magnesium 1.9 06/07/22 11:30: Troponin I High Sens 250 H* 06/07/22 11:54: Urine Color Straw, Urine Clarity Clear, Urine pH 7.0, Ur Specific [place] 1.010, Urine Protein Negative, Urine Glucose (UA) Normal, Urine Ketones Negative, Urine Occult Blood 10 H, Urine Nitrite Negative, Urine Bilirubin Negative, Urine Urobilinogen Normal, Ur Leukocyte Esterase Negative, Urine RBC 0 SEEN, Urine WBC 0 SEEN, Ur Squamous Epith Cells 0 SEEN, Urine Bacteria 0 SEEN, Urine Mucus 0 SEEN 06/07/22 14:42: Troponin I High Sens 345 H* 06/07/22 19:13: APTT 41.0 H 06/08/22 01:55: WBC 9.0, RBC 4.77, Hgb 13.2, Hct 40.8, MCV 85.5, MCH 27.7, MCHC 32.4, RDW Std Deviation 43.2, RDW Coeff of Zhao 13.9, Plt Count 290, MPV 10.9, Immature Gran % (Auto) 0.300, Neut % (Auto) 86.2 H, Lymph % (Auto) 8.6 L, [place] % (Auto) 4.9, Eos % (Auto) 0.0, Baso % (Auto) 0.0, Absolute Neuts (auto) 7.7, Absolute Lymphs (auto) 0.77 L, Nucleated RBC % 0 06/08/22 01:55: Sodium 139, Potassium 3.7, Chloride 101, Carbon Dioxide 31.0, Anion Gap 7, BUN 27 H, Creatinine 1.52 H, Estim Creat Clear Calc 32.40, Est GFR (MDRD) Af Amer 57 L, Est GFR (MDRD) Non-Af 47 L, BUN/Creatinine Ratio 17.8, Glucose 175 H, Calcium 8.5, Total Bilirubin 0.60, AST 15, ALT 19, Alkaline Phosphatase 116, Total Protein 7.5, Albumin 3.3, Globulin 4.2, Albumin/Globulin Ratio 0.8 L, Triglycerides 76, Cholesterol 203 H, LDL Cholesterol 137 H, VLDL Cholesterol 15, HDL Cholesterol 51, TSH 0.45 06/08/22 01:55: APTT 77.8 H Cardiology Labs/Tests 06/07/22 09:17: WBC 12.9 H, RBC 5.37, Hgb 14.9, Hct 45.6, MCV 84.9, MCH 27.7, MCHC 32.7, Plt Count 326, MPV 10.6, Immature Gran % (Auto) 0.200, Neut % (Auto) 66.4, Lymph % (Auto) 20.6, [place] % (Auto) 7.5, Eos % (Auto) 4.5, Baso % (Auto) 0.8, Absolute Neuts (auto) 8.6 H, Nucleated RBC % 0 06/07/22 09:17: D-Dimer Quant (PE/DVT) 1.32 H* 06/07/22 09:17: Sodium 142, Potassium 3.5, Chloride 107, Carbon Dioxide 29.0, Anion Gap 6, BUN 24 H, Creatinine 1.21, Est GFR (MDRD) Af Amer 74, Est GFR (MDRD) Non-Af 61, BUN/Creatinine Ratio 19.8, Glucose 132 H, Calcium 8.8, Total Bilirubin 0.80, Direct Bilirubin 0.23 06/07/22 09:17: B-Natriuretic Peptide 1076.8 H 06/07/22 09:17: PT 13.7, INR 1.1, APTT 28.7 06/07/22 09:17: Phosphorus 2.1 L, Magnesium 1.9 06/07/22 11:54: Urine Color Straw, Urine Clarity Clear, Urine pH 7.0, Ur Specific [place] 1.010, Urine Protein Negative, Urine Glucose (UA) Normal, Urine Ketones Negative, Urine Occult Blood 10 H, Urine Nitrite Negative, Urine Bilirubin Negative, Urine Urobilinogen Normal, Ur Leukocyte Esterase Negative, Urine RBC 0 SEEN, Urine WBC 0 SEEN 06/07/22 19:13: APTT 41.0 H 06/08/22 01:55: WBC 9.0, RBC 4.77, Hgb 13.2, Hct 40.8, MCV 85.5, MCH 27.7, MCHC 32.4, Plt Count 290, MPV 10.9, Immature Gran % (Auto) 0.300, Neut % (Auto) 86.2 H, Lymph % (Auto) 8.6 L, [place] % (Auto) 4.9, Eos % (Auto) 0.0, Baso % (Auto) 0.0, Absolute Neuts (auto) 7.7, Nucleated RBC % 0 06/08/22 01:55: Sodium 139, Potassium 3.7, Chloride 101, Carbon Dioxide 31.0, Anion Gap 7, BUN 27 H, Creatinine 1.52 H, Est GFR (MDRD) Af Amer 57 L, Est GFR (MDRD) Non-Af 47 L, BUN/Creatinine Ratio 17.8, Glucose 175 H, Calcium 8.5, Total Bilirubin 0.60, Triglycerides 76, Cholesterol 203 H, LDL Cholesterol 137 H, VLDL Cholesterol 15, HDL Cholesterol 51 06/08/22 01:55: APTT 77.8 H Rhythm: EKG: ECHO: Stress Test: Cardiac Cath: PCI: CT Surgery: Holter monitor: EPS: PPM: CXR: Chest CT Scan: Radiography Diagnostic Testing: Radiology Impression Chest X-Ray 06/07/22 09:41 IMPRESSION: Acute or chronic interstitial lung disease, possibly atypical pneumonia. Electronically Signed: Felice Smith MD at 10:23 EDT Reading Location ID and State: [id number] / [employer] Tel , Service support , Chest CTA 06/07/22 09:52 IMPRESSION: No CT evidence of pulmonary embolism. Moderate bilateral pleural effusions with bibasilar atelectasis. Electronically Signed: Felice Smith MD at 11:37 EDT , Physical Exam Const alert, oriented x3 and no apparent distress General Appearance: cooperative HEENT hearing grossly normal bilaterally Head and Scalp: atraumatic Eyes EOMs intact bilaterally Neck General: normal visual inspection Chest inspection of chest normal and palpation of chest normal Resp normal respiratory effort Auscultation: clear to auscultation bilaterally Cardio regular rate, regular rhythm, S1 normal heart sound and S2 normal heart sound Jugular Venous Distention: JVD Heart Sounds: murmur systolic GI normal to inspection, nondistended, normoactive bowel sounds Extremity normal capillary refill and no pedal edema Peripheral Pulses: Yes pulses 2+ throughout and femoral pulses present Skin no rashes or lesions noted Neuro oriented x3 and CN's II-XII intact bilaterally Psych Appearance: grossly normal and appropriate Assessment & Plan Assessment/Plan (1) Acute on chronic heart failure with preserved ejection fraction (HFpEF): PLAN: The patient presents with acute on chronic exacerbation of congestive heart failure with minimal cardiac enzyme elevation. We will recommend continued diuresis Reevaluate left ventricular function to assess aortic valve area. If wall motion abnormalities are noted we will consider a left heart catheterization as this may be the contributing factor for the exacerbation of the congestive heart failure (2) Essential hypertension: PLAN: Blood pressure currently under good control we will continue with beta-ramsey and ELIAS inhibitor. (3) Nonrheumatic aortic (valve) stenosis with insufficiency: PLAN: Patient has history of known moderate aortic stenosis with mild insufficiency. We will repeat echocardiogram to reassess ventricular function and depending on the findings further recommendations will be made. Thank you for allowing me to participate in the care of your patient. Please don't hesitate to call if any issues arise.
--- NOTE | 2022-06-08 08:32 | PN.HOSP_ITS ---
Reason for Visit Reason for Visit: Diagnoses Non-ST elevation (NSTEMI) myocardial infarction (06/07/22) Acute on chronic diastolic (congestive) heart failure (06/07/22) Subjective Subjective Breathing well. Objective Data Objective Data Vital Signs: Vital Signs Temp Pulse Resp BP Pulse Ox O2 Del Method O2 Flow Rate 36.8 C 77 16 164/54 H 95 Room Air 2 06/08/22 08:00 06/08/22 08:00 06/08/22 08:00 06/08/22 08:00 06/08/22 08:00 06/08/22 08:00 06/07/22 13:34 Oxygen Flow Rate (L/min) 2 Oxygen Delivery Method Room Air Weight: 62.9 kg Body Mass Index (BMI) 22.4 Intake & Output: Intake and Output for Last 24 Hours 06/06/22 06/07/22 06/08/22 23:59 23:59 23:59 Intake Total 620.07 / 620.07 100.2 / 100.2 Output Total 1320 / 1320 200 / 200 Balance -699.93 / -699.93 -99.8 / -99.8 Lab / Micro Data Result Diagrams: 06/08/22 01:55 06/08/22 01:55 Labs: Laboratory Results - last 24 hr 06/07/22 09:17: WBC 12.9 H, RBC 5.37, Hgb 14.9, Hct 45.6, MCV 84.9, MCH 27.7, MCHC 32.7, RDW Std Deviation 43.0, RDW Coeff of Zhao 13.9, Plt Count 326, MPV 10.6, Immature Gran % (Auto) 0.200, Neut % (Auto) 66.4, Lymph % (Auto) 20.6, [place] % (Auto) 7.5, Eos % (Auto) 4.5, Baso % (Auto) 0.8, Absolute Neuts (auto) 8.6 H, Absolute Lymphs (auto) 2.66, Nucleated RBC % 0 06/07/22 09:17: D-Dimer Quant (PE/DVT) 1.32 H* 06/07/22 09:17: Sodium 142, Potassium 3.5, Chloride 107, Carbon Dioxide 29.0, Anion Gap 6, BUN 24 H, Creatinine 1.21, Estim Creat Clear Calc 41.74, Est GFR (MDRD) Af Amer 74, Est GFR (MDRD) Non-Af 61, BUN/Creatinine Ratio 19.8, Glucose 132 H, Calcium 8.8, Total Bilirubin 0.80, Direct Bilirubin 0.23, AST 17, ALT 25, Alkaline Phosphatase 146 H, Troponin I High Sens 92 H, Total Protein 8.9 H, Albumin 4.2, Globulin 4.7 H 06/07/22 09:17: B-Natriuretic Peptide 1076.8 H 06/07/22 09:17: PT 13.7, INR 1.1, APTT 28.7 06/07/22 09:17: Phosphorus 2.1 L, Magnesium 1.9 06/07/22 11:30: Troponin I High Sens 250 H* 06/07/22 11:54: Urine Color Straw, Urine Clarity Clear, Urine pH 7.0, Ur S pecific [place] 1.010, Urine Protein Negative, Urine Glucose (UA) Normal, Urine Ketones Negative, Urine Occult Blood 10 H, Urine Nitrite Negative, Urine Bilirubin Negative, Urine Urobilinogen Normal, Ur Leukocyte Esterase Negative, Urine RBC 0 SEEN, Urine WBC 0 SEEN, Ur Squamous Epith Cells 0 SEEN, Urine Bacteria 0 SEEN, Urine Mucus 0 SEEN 06/07/22 14:42: Troponin I High Sens 345 H* 06/07/22 19:13: APTT 41.0 H 06/08/22 01:55: WBC 9.0, RBC 4.77, Hgb 13.2, Hct 40.8, MCV 85.5, MCH 27.7, MCHC 32.4, RDW Std Deviation 43.2, RDW Coeff of Zhao 13.9, Plt Count 290, MPV 10.9, Immature Gran % (Auto) 0.300, Neut % (Auto) 86.2 H, Lymph % (Auto) 8.6 L, [place] % (Auto) 4.9, Eos % (Auto) 0.0, Baso % (Auto) 0.0, Absolute Neuts (auto) 7.7, Absolute Lymphs (auto) 0.77 L, Nucleated RBC % 0 06/08/22 01:55: Sodium 139, Potassium 3.7, Chloride 101, Carbon Dioxide 31.0, Anion Gap 7, BUN 27 H, Creatinine 1.52 H, Estim Creat Clear Calc 32.40, Est GFR (MDRD) Af Amer 57 L, Est GFR (MDRD) Non-Af 47 L, BUN/Creatinine Ratio 17.8, Glucose 175 H, Calcium 8.5, Total Bilirubin 0.60, AST 15, ALT 19, Alkaline Phosphatase 116, Total Protein 7.5, Albumin 3.3, Globulin 4.2, Albumin/Globulin Ratio 0.8 L, Triglycerides 76, Cholesterol 203 H, LDL Cholesterol 137 H, VLDL Cholesterol 15, HDL Cholesterol 51, TSH 0.45 06/08/22 01:55: APTT 77.8 H Radiography Diagnostic Testing: Radiology Impression Chest X-Ray 06/07/22 09:41 IMPRESSION: Acute or chronic interstitial lung disease, possibly atypical pneumonia. Electronically Signed: Felice Smith MD at 10:23 EDT Reading Location ID and State: [id number] / [employer] Tel , Service support , Chest CTA 06/07/22 09:52 IMPRESSION: No CT evidence of pulmonary embolism. Moderate bilateral pleural effusions with bibasilar atelectasis. Electronically Signed: Felice Smith MD at 11:37 EDT Reading Location ID and State: [id number] / [employer] Tel , Service support , Physical Exam Const alert and no apparent distress HEENT head/scalp atraumatic, moist oral mucous membranes, oropharynx normal and dentition normal Resp normal respiratory effort, no retractions, no use of accessory muscles and clear to auscultation bilaterally Cardio regular rate, regular rhythm, S1 normal heart sound and S2 normal heart sound GI normal to inspection, nondistended, normoactive bowel sounds, soft to palpation, non-tender and non-distended Assessment & Plan Assessment/Plan (1) Acute on chronic heart failure with preserved ejection fraction (HFpEF): PLAN: Acute on chronic HFpEF may be precipitated by non-STEMI: Patient is being admitted in PCU. Started on Lasix 40 mg IV twice daily. Patient had good diuresis in the ER with 1 dose of Lasix 40 mg about 2 litre. Twelve-lead EKG was done, individually reviewed. Sinus tachycardia with PVCs and occasional supraventricular complexes. Nonspecific ST-T abnormality. First troponin was 92, second troponin high at 250. BNP high. We will repeat third troponin after 6 hours of force. Repeat EKG on the floor. Started on Lasix 40 mg IV twice daily. (2) Non-ST elevation NM (NSTEMI): PLAN: Maternal Child Nurse consulted and discussed with him. Started on heparin drip with bolus. Continue aspirin. Started on low-dose Coreg 3.125 twice daily, lisinopril and high intensity statin. Patient might need cardiac cath although he never had it. Heart failure core measures including intake and output, fluid restriction less than 1500 mL, daily weight monitoring, kidney and electrolytes monitoring. (3) Hypertensive urgency: PLAN: Hypertensive urgency: Patient BP was very high systolic about 250. Most recent is 149/72. We will try to keep about systolic 150 for next 24 hours. Patient on lisinopril and continued. Avoid sudden drop in BP less than 120 mmHg. PLAN: Plan Chronic conditions: * Nonrheumatic moderate aortic stenosis with mild AI: Patient follows Dr. Barclay last seen February 2022. At that time was not interested in valve replacement but wanted medical treatment. On ELIAS inhibitor and diuretic. * BPH with history of urinary retention status post TURP: [place] catheter inserted in ED for accurate measurement of intake and output, on IV Lasix. Urine is clear. Patient denied history of new lower urinary tract symptoms or UTI symptoms. Patient not on Flomax. UA bland and negative for pyuria, LE and nitrite. * psoriasis: I do not see obvious psoriatic patch on exam. Is controlled VTE prophylaxis: anticoagulated Code status: DNRCCA no intubation. DC [place] Charges/Coding Visit Charges Inpatient E&M: 35053 Subs Hosp L2
[2022-06-08 09:36] LABS: Partial Thromboplast Time 40.9 Seconds (24.1-36.2)
--- NOTE | 2022-06-08 11:45 | CASEMGMT ---
SALENA VALDEZ Face to Face with patient for initial transition planning/care coordination assessment. RN CM introduced self and role at [facility]. Patient lying in bed, alert and oriented, at bedside. Patient willing to participate in assessment and is able to answer all questions appropriately. Care providers, pharmacy, and demographics verified. Patient wishes to discharge home will monitor progress with therapy for possible HHC or SNF. Patient states he has no further needs or concerns at this time. CM to follow for discharge planning needs that may arise. PCP: [place] Specialists: Philippe, urologist; Deny, computer assistant Preferred Pharmacy: [facility]; [facility] retail at discharge. Insurance: [employer] Prescription Benefit: none Living Will/HPOA: none LNOK: Living Arrangements: Patient lives with in 2 story home with bed and bath on first floor, ramp to enter the home. Patient states he was independent at home. Transportation: tractor trailer truck driver DME/HHC: Patient has cane, walker, grab bars, and glucometer at home. No previous HHC or SNF. Disposition Plan: TBD, will monitor progress with therapy. Anticipate HHC vs SNF Nhung PUENTE, RN, CM
[2022-06-08] MEDS: Lisinopril 10 MG Tablet PO (12:20)
[2022-06-08] MEDS: Carvedilol 3.125 MG TABLET PO ×2 (12:20→16:13)
[2022-06-08] MEDS: Aspirin E.C. 81 MG Tablet PO (12:21)
[2022-06-08] MEDS: Furosemide 40 MG/4 ML Vial IV (12:21)
[2022-06-08] MEDS: 0.9% Saline Lock 10 ML Syringe IV (12:21)
--- NOTE | 2022-06-08 16:10 | CHAPLAIN ---
Type of Pastoral Visit _x__ Initial Visit ___ Follow-up Visit ___ On-call Visit ___ General Patient Visit ___ Spiritual Assessment ___ Family Conference ___ Bereavement ___ Rapid Response ___ Code Blue ___ Other (describe below) Pastoral Care Referral From _x__ Patient ___ Family ___ Nurse ___ Physician ___ Dredge Pipeman ___ Diesel Power Shovel Operator ___ Other (describe below) Sacrament/Intervention ___ Active listening ___ Anointing ___ Religion ___ Bereavement ___ Communion ___ Bianca exploration ___ ___ Life review _x__ Prayer ___ Reconciliation ___ Sacrament of Sick _x__ Supportive presence ___ Wedding ___ Other (describe below) Pastoral Comments patient was eating a late lunch and was wanting to continue eating; pt stated that he is waiting on results and decisions; pt says you can say a prayer for me and that is fine; and daughter are also in the room; offer of ongoing support given as needed
[2022-06-08] MEDS: Furosemide 40 MG Tablet PO (16:13)
[2022-06-08] MEDS: Atorvastatin Calcium 40 MG Tablet PO (20:59)
[2022-06-09 02:00] VITALS: BP 130/80; PULSE 78; RESP 16; TEMP 36.7; O2SAT 96
--- NOTE | 2022-06-09 05:50 | PN.CARD_ITS ---
Subjective Subjective The patient was seen and evaluated. Appears to be doing well this morning. Objective Data Vital Signs: Vital Signs Temp Pulse Resp BP Pulse Ox O2 Del Method O2 Flow Rate 98.1 F 78 16 130/80 H 96 Room Air 2 06/09/22 02:00 06/09/22 02:00 06/09/22 02:00 06/09/22 02:00 06/09/22 02:00 06/09/22 02:00 06/07/22 13:34 Oxygen Flow Rate (L/min) 2 Oxygen Delivery Method Room Air Weight: 138 lb 10.732 oz Body Mass Index (BMI) 22.4 Intake & Output: Intake and Output for Last 24 Hours 06/07/22 06/08/22 06/09/22 23:59 23:59 23:59 Intake Total 620.07 / 620.07 480.2 / 600.2 120 / 120 Output Total 1320 / 1320 875 / 1075 575 / 575 Balance -699.93 / -699.93 -394.8 / -474.8 -455 / -455 Lab / Micro Data Result Diagrams: 06/08/22 01:55 06/08/22 01:55 Labs: Laboratory Results - last 24 hr 06/08/22 08:40: APTT 40.9 H Cardiology Labs/Tests 06/08/22 08:40: APTT 40.9 H Rhythm: EKG: ECHO: Stress Test: Cardiac Cath: PCI: CT Surgery: Holter monitor: EPS: PPM: CXR: Chest CT Scan: Radiography Diagnostic Testing: Radiology Impression Echocardiogram 06/08/22 05:55 Interpretation Summary Normal LV size. Left ventricular systolic function is normal. The estimated ejection fraction is 55 %. Moderate focal aortic valve calcification. Mean aortic valve gradient 30 mmHg. Moderate aortic stenosis. Compared to the previous echocardiogram from a year ago the aortic valve gradients and area is the same. Compared to previous study, the left ventricular systolic function is the same.. Ordering Physician: Santosh Nolan Referring Physician: ROXANA HENRIQUEZ Performed By: Micaela Jones RCS Physical Exam Const alert and no apparent distress HEENT head/scalp atraumatic, moist oral mucous membranes, oropharynx normal and denti tion normal Resp normal respiratory effort, no retractions, no use of accessory muscles and clear to auscultation bilaterally Cardio regular rate, regular rhythm, S1 normal heart sound and S2 normal heart sound GI normal to inspection, nondistended, normoactive bowel sounds, soft to palpation, non-tender and non-distended Assessment & Plan Assessment/Plan (1) Acute on chronic heart failure with preserved ejection fraction (HFpEF): PLAN: The patient presents with acute on chronic exacerbation of congestive heart failure with minimal cardiac enzyme elevation. We will recommend continued diuresis Left ventricular systolic function was preserved as well as the aortic valve area. (2) Essential hypertension: PLAN: Blood pressure currently under good control we will continue with beta- ramsey and ELIAS inhibitor. (3) Nonrheumatic aortic (valve) stenosis with insufficiency: PLAN: Patient has history of known moderate aortic stenosis with mild insufficiency. Repeat echocardiogram demonstrates similar ejection fraction as well as moderate aortic stenosis unchanged. Thank you for allowing me to participate in the care of your patient. Please don't hesitate to call if any issues arise. (4) Non-ST elevation HI (NSTEMI): PLAN: With respect to his non-ST elevation myocardial infarction I will recommend that we obtain a pharmacologic myocardial perfusion stress test. If the above is normal he can be discharged for outpatient follow-up. Thank you for allowing me to participate in the care of your patient. Please don't hesitate to call if any issues arise.
[2022-06-09 06:00] VITALS: BMI 22.7
[2022-06-09 06:05] LABS: Absolute Lymphocyte Count 1.55 X10^3/uL (0.83-4.51); Absolute Neutrophil Count 7.5 X10^3/uL (2.0-7.7); Basophil# 0.05 X10^3/uL; Basophil% 0.5 % (0-1); Eosinophil# 0.18 X10^3/uL; Eosinophils% 1.8 % (0-5); Hematocrit 38.9 % (40-54); Hemoglobin 12.5 g/dL (13.0-16.5); Lymphocyte # 1.55 X10^3/ul (0.83-4.51); Lymphocyte % 15.3 % (19-41); Mean Corp Hgb Conc 32.1 g/dL (32-36); Mean Corpuscular Hgb 27.4 pg (27.0-32.0); Mean Corpuscular Volume 85.1 fL (80-94); Mean Platelet Vol. 11.2 fl (6.2-12.0); Monocyte# 0.81 X10^3/uL; NRBC Flagged by Analyzer 0 % (0-5); Neutrophil # 7.53 X10^3/uL (2.7-7.7); Platelet Count 276 K/mm3 (150-450); Red Blood Count 4.57 M/mm3 (4.6-6.2); White Blood Count 10.2 K/mm3 (4.4-11.0)
--- NOTE | 2022-06-09 06:05 | EKG12_ITS ---
Test Reason : STRESS TEST Blood Pressure : / mmHG Vent. Rate : 062 BPM Atrial Rate : 062 BPM P-R Int : 134 ms QRS Dur : 086 ms QT Int : 404 ms P-R-T Axes : 054 054 141 degrees QTc Int : 410 ms Sinus rhythm with marked sinus arrhythmia Minimal voltage criteria for LVH, may be normal variant ( Sokolow-Paiz ) Nonspecific T wave abnormality Abnormal ECG When compared with ECG of 07-JUN-2022 20:41, QT has shortened Confirmed by PARUL JAMESON, JAVY ([id number]), restaurant expeditor SUDHEER NIELSON ([id number]) on 06/11/2022 9:24:48 AM Referred By: Confirmed By:JAVY TERAN MD
[2022-06-09] MEDS: Lisinopril 10 MG Tablet PO (06:15)
[2022-06-09] MEDS: Aspirin E.C. 81 MG Tablet PO (06:15)
[2022-06-09 06:48] LABS: Anion Gap 5 (5-15); BUN 42 mg/dL (7-18); BUN/Creat Ratio 32.3 RATIO (10-20); Calcium,Total 8.1 mg/dL (8.5-10.1); Chloride 104 mmol/L (98-107); EST Glomerular Filtration Rate 56 mL/min (>60); Est Glom Filt Rate - Afr Amer 68 mL/min (>60); Glucose 110 mg/dL (74-106); Potassium 3.4 mmol/L (3.5-5.1); Sodium Level 140 mmol/L (136-145)
[2022-06-09 08:00] VITALS: BP 154/70; PULSE 62; RESP 16; TEMP 36.8; O2SAT 95
--- NOTE | 2022-06-09 08:08 | PN.HOSP_ITS ---
Reason for Visit Reason for Visit: Diagnoses Essential (primary) hypertension (06/07/22) Hypertensive urgency (06/07/22) Non-ST elevation (NSTEMI) myocardial infarction (06/07/22) Nonrheumatic aortic (valve) stenosis with insufficiency (06/07/22) Acute on chronic diastolic (congestive) heart failure (06/07/22) Subjective Subjective No events. No shortness of breath. no chest pain. Objective Data Objective Data Vital Signs: Vital Signs Temp Pulse Resp BP Pulse Ox O2 Del Method O2 Flow Rate 36.7 C 78 16 130/80 H 96 Room Air 2 06/09/22 02:00 06/09/22 02:00 06/09/22 02:00 06/09/22 02:00 06/09/22 02:00 06/09/22 02:00 06/07/22 13:34 Oxygen Flow Rate (L/min) 2 Oxygen Delivery Method Room Air Weight: 63.9 kg Body Mass Index (BMI) 22.7 Intake & Output: Intake and Output for Last 24 Hours 06/07/22 06/08/22 06/09/22 23:59 23:59 23:59 Intake Total 620.07 / 620.07 480.2 / 600.2 360 / 360 Output Total 1320 / 1320 875 / 1075 575 / 575 Balance -699.93 / -699.93 -394.8 / -474.8 -215 / -215 Lab / Micro Data Result Diagrams: 06/09/22 05:23 06/09/22 05:23 Labs: Laboratory Results - last 24 hr 06/08/22 08:40: APTT 40.9 H 06/09/22 05:23: WBC 10.2, RBC 4.57 L, Hgb 12.5 L, Hct 38.9 L, MCV 85.1, MCH 27.4, MCHC 32.1, RDW Std Deviation 43.0, RDW Coeff of Zhao 14.0, Plt Count 276, MPV 11.2, Immature Gran % (Auto) 0.400, Neut % (Auto) 74.0 H, Lymph % (Auto) 15.3 L, [place] % (Auto) 8.0, Eos % (Auto) 1.8, Baso % (Auto) 0.5, Absolute Neuts (auto) 7.5, Absolute Lymphs (auto) 1.55, Nucleated RBC % 0 06/09/22 05:23: Sodium 140, Potassium 3.4 L, Chloride 104, Carbon Dioxide 31.0, Anion Gap 5, BUN 42 H, Creatinine 1.30, Estim Creat Clear Calc 38.30, Est GFR (MDRD) Af Amer 68, Est GFR (MDRD) Non-Af 56 L, BUN/Creatinine Ratio 32.3 H, Glucose 110 H, Calcium 8.1 L Radiography Diagnostic Testing: Radiology Impression Echocardiogram 06/08/22 05:55 Interpretation Summary Normal LV size. Left ventricular systolic function is normal. The estimated ejection fraction is 55 %. Moderate focal aortic valve calcification. Mean aortic valve gradient 30 mmHg. Moderate aortic stenosis. Compared to the previous echocardiogram from a year ago the aortic valve gradients and area is the same. Compared to previous study, the left ventricular systolic function is the same.. Ordering Physician: Santosh Nolan Referring Physician: ROXANA HENRIQUEZ Performed By: Micaela Jones RCS Physical Exam Const alert and no apparent distress HEENT head/scalp atraumatic, moist oral mucous membranes and oropharynx normal Neck no lymphadenopathy, supple, no JVD and no carotid bruits Resp normal respiratory effort, no retractions, no use of accessory muscles and clear to auscultation bilaterally Cardio regular rate, regular rhythm, S1 normal heart sound and S2 normal heart sound GI normal to inspection, nondistended, normoactive bowel sounds, soft to palpation, non-tender and non-distended Extremity normal to inspection and full ROM Assessment & Plan Assessment/Plan (1) Acute on chronic heart failure with preserved ejection fraction (HFpEF): PLAN: Acute on chronic HFpEF may be precipitated by non-STEMI: Patient is being admitted in PCU. Started on Lasix 40 mg IV twice daily. Patient had good diuresis in the ER with 1 dose of Lasix 40 mg about 2 litre. Twelve-lead EKG was done, individually reviewed. Sinus tachycardia with PVCs and occasional supraventricular complexes. Nonspecific ST-T abnormality. First troponin was 92, second troponin high at 250. BNP high. We will repeat third troponin after 6 hours of force. Repeat EKG on the floor. Started on Lasix 40 mg IV twice daily. Echo shows EF 55% (2) Non-ST elevation ID (NSTEMI): PLAN: Suit Attendant consulted and discussed with him. Started on heparin drip with bolus. Continue aspirin. Started on low-dose Coreg 3.125 twice daily, lisinopril and high intensity statin. Stress ordered (3) Hypertensive urgency: PLAN: Patient BP was very high systolic about 250. Improved PLAN: Plan Chronic conditions: * Nonrheumatic moderate aortic stenosis with mild AI: Patient follows Dr. Barclay last seen February 2022. At that time was not interested in valve replacement but wanted medical treatment. On ELIAS inhibitor and diuretic. * BPH with history of urinary retention status post TURP: [place] catheter inserted in ED for accurate measurement of intake and output, on IV Lasix. Urine is clear. Patient denied history of new lower urinary tract symptoms or UTI symptoms. Patient not on Flomax. UA bland and negative for pyuria, LE and nitrite. * psoriasis: controlled VTE prophylaxis: anticoagulated Code status: DNRCCA no intubation. DC [place] Disposition: TBD. Awaiting on stress test. Charges/Coding Visit Charges Inpatient E&M: 58500 Subs Hosp L2
[2022-06-09] MEDS: Carvedilol 3.125 MG TABLET PO ×2 (08:28→18:18)
[2022-06-09] MEDS: Furosemide 40 MG Tablet PO ×2 (08:29→18:18)
[2022-06-09] MEDS: 0.9% Saline Lock 10 ML Syringe IV (09:29)
[2022-06-09 14:00] VITALS: BP 148/75; PULSE 67; RESP 16; TEMP 36.7; O2SAT 96
--- NOTE | 2022-06-09 14:50 | NURSING ---
06/09/22- F/C REMOVED PER DR ORDER AT 1450. CATHETER INTACT, 200ML OF CLEAR/ YELLOW URINE NOTED. PT TOLERATED WELL. WILL CONTINUE TO MONITOR.
--- NOTE | 2022-06-09 18:36 | STRESSREP ---
Stress Test Report Pharmacologic myocardial perfusion stress test. 82-year-old man with a history of abnormal cardiac enzymes Resting EKG demonstrates sinus rhythm, with premature ventricular complexes with a rate of 73 bpm. Resting blood pressure is 173/69 mmHg. 0.4 mg of regadenoson was infused per usual protocol followed by rapid intravenous saline flush injection. Continuous EKG monitoring was performed. The maximum heart rate was 99 bpm which was 72% of max impacted heart rate the maximum workload was 1 metabolic equivalent. At rest there were no ST or T wave changes noted to suggest ischemia and at peak infusion nonspecific ST changes were noted which did not meet the criteria for ischemia. No clinical angina is noted. The final blood pressure was 139/74 mmHg. Myocardial perfusion protocol. 11.4 mCi of technetium 99m sestamibi was injected at rest. 0.4 mg of regadenoson was infused per usual protocol. At peak infusion 33.9 mCi of technetium 99m sestamibi was injected stress images were obtained stress and rest images were reconstructed and compared in the short axis vertical long and horizontal long axis. Gated images were also obtained. Perfusion SPECT analysis: Review of the stress images demonstrate normal uptake of tracer noted in all areas of the myocardium. The resting images similar demonstrated normal uptake of tracer noted in all areas of the myocardium. No areas of reversibility are noted to suggest ischemia and no previous infarct is noted. Gated SPECT analysis: The gated ejection fraction is 46%. Conclusion: Normal pharmacologic myocardial perfusion stress test. Low normal ejection fraction.
--- NOTE | 2022-06-09 19:16 | PCM.DC ---
Discharge Instructions Diet Discharge Diet: Low fat / Low cholesterol Dressing / Incision Call your doctor if you observe: Shortness of breath and Chest pain Follow Up Care Test Results: Test results from this visit will be discussed in further detail at your follow-up appointment, if applicable. Discharge Plan Admission Admit Date/Time: 06/07/22 12:11 Primary Reason for Your Visit: Heart failure. Attending Provider: Dequan Brothers Primary Care Provider: Efrain Barahona Consulting Providers: Gino Douglas ; Santosh Nolan Discharge Orders/Prescriptions Prescriptions: New atorvastatin 40 mg Tablet 40 mg PO QHS Qty: 30 0RF aspirin 81 mg Tablet,Delayed Release (Dr/Ec) 81 mg PO BREAKFAST Qty: 0 0RF carvedilol 3.125 mg Tablet 3.125 mg PO BIDCM Qty: 60 0RF potassium chloride 20 mEq tablet,ER particles/crystals 20 meq PO DAILY Qty: 30 0RF Continued lisinopril 20 mg tablet 20 mg PO DAILY Qty: 90 3RF Changed furosemide [Lasix] 40 mg tablet 40 mg PO BID Qty: 60 0RF Discontinued aspirin 325 mg tablet 325 mg PO DAILY Referrals / Follow Up: [facility] [Provider Group] - See Referral Note (in 1-2 months) Efrain Barahona DO [Primary Care Provider] - Within 2 Weeks Disposition Disposition (needs filled in before D/C Order can be placed): Home, Self Care
--- NOTE | 2022-06-09 19:26 | DS.PCM_ITS ---
Providers Date of Admission: 06/07/22 Primary Care Physician: Dr. Efrain Barahona, Consultations 06/07/22 13:03 Consult: Cardiology Routine Consulting Provider: Gino Douglas Reason for Consult: CHF Exa/NSTEMI EMERGENT Consult: No MD Notified: Yes Date Notified: 06/07/22 Time Notified: 12:18 Method of Notification: Verbal Reason For Visit: CHF EXACERBATION Diagnosis Discharge Diagnosis (1) Acute on chronic heart failure with preserved ejection fraction (HFpEF): Status: Acute Code(s): I50.33 - Acute on chronic diastolic (congestive) heart failure Plan: Acute on chronic HFpEF may be precipitated by non-STEMI: Patient is being admitted in PCU. Started on Lasix 40 mg IV twice daily. Patient had good diuresis in the ER with 1 dose of Lasix 40 mg about 2 litre. Twelve-lead EKG was done, individually reviewed. Sinus tachycardia with PVCs and occasional supraventricular complexes. Nonspecific ST-T abnormality. First troponin was 92, second troponin high at 250. BNP high. We will repeat third troponin after 6 hours of force. Repeat EKG on the floor. Started on Lasix 40 mg IV twice daily. Echo shows EF 55% (2) Non-ST elevation HI (NSTEMI): Status: Acute Code(s): I21.4 - Non-ST elevation (NSTEMI) myocardial infarction Plan: Employment Educational Coord consulted and discussed with him. Started on heparin drip with bolus. Continue aspirin. Started on low-dose Coreg 3.125 twice daily, lisinopril and high intensity statin. Stress test negative. Likely type II event given CHF exacerbation. (3) Hypertensive urgency: Status: Acute Code(s): I16.0 - Hypertensive urgency Plan: Patient BP was very high systolic about 250. Improved Plan Chronic conditions: * Nonrheumatic moderate aortic stenosis with mild AI: Patient follows Dr. Barclay last seen February 2022. At that time was not interested in valve replacement but wanted medical treatment. On ELIAS inhibitor and diuretic. * BPH with history of urinary retention status post TURP: [place] catheter inserted in ED for accurate measurement of intake and output, on IV Lasix. Urine is clear. Patient denied history of new lower urinary tract symptoms or UTI symptoms. Patient not on Flomax. UA bland and negative for pyuria, LE and nitrite. * psoriasis: controlled VTE prophylaxis: anticoagulated Code status: DNRCCA no intubation. DC home. Medications at Discharge Home Medications lisinopril 20 mg tablet 20 mg PO DAILY #90 tabs 06/11/21 aspirin 81 mg tablet,delayed release 81 mg PO BREAKFAST #0 tabs 06/09/22 atorvastatin 40 mg tablet 40 mg PO QHS #30 tabs 06/09/22 carvedilol 3.125 mg tablet 3.125 mg PO BIDCM #60 tabs 06/09/22 furosemide 40 mg tablet (Lasix) 40 mg PO BID #60 tabs 06/09/22 potassium chloride 20 mEq tablet,extended release(part/cryst) 20 meq PO DAILY #30 tabs 06/09/22 Hospital Course Operations None Procedures 2-D Echocardiogram and Stress test Summary of Care Provided Minutes Spent on Discharge: 35 Weight / BMI Weight Weight: 63.9 kg Body Mass Index (BMI) 22.7 ABG / Lab / Microbiology Data Result Diagrams: 06/09/22 05:23 06/09/22 05:23 Laboratory: Laboratory Results - last 24 hr 06/09/22 05:23: WBC 10.2, RBC 4.57 L, Hgb 12.5 L, Hct 38.9 L, MCV 85.1, MCH 27.4, MCHC 32.1, RDW Std Deviation 43.0, RDW Coeff of Zhao 14.0, Plt Count 276, MPV 11.2, Immature Gran % (Auto) 0.400, Neut % (Auto) 74.0 H, Lymph % (Auto) 15.3 L, [place] % (Auto) 8.0, Eos % (Auto) 1.8, Baso % (Auto) 0.5, Absolute Neuts (auto) 7.5, Absolute Lymphs (auto) 1.55, Nucleated RBC % 0 06/09/22 05:23: Sodium 140, Potassium 3.4 L, Chloride 104, Carbon Dioxide 31.0, Anion Gap 5, BUN 42 H, Creatinine 1.30, Estim Creat Clear Calc 38.30, Est GFR (MDRD) Af Amer 68, Est GFR (MDRD) Non-Af 56 L, BUN/Creatinine Ratio 32.3 H, Glucose 110 H, Calcium 8.1 L D/C Instructions Discharge Diet: Low fat / Low cholesterol Call your doctor if you observe: Shortness of breath and Chest pain Meaningful Use Info Meaningful Use Diagnoses (Choose all that apply): CHF CHF ELIAS/ARB ordered at discharge?: Yes Documented LVEF (%): 55 Discharge Plan Admission Admit Date/Time: 06/07/22 12:11 Primary Reason for Your Visit: Heart failure. Attending Provider: Dequan Brothers Primary Care Provider: Efrain Barahona Consulting Providers: Gino Douglas ; Santosh Nolan Discharge Orders/Prescriptions Prescriptions: New atorvastatin 40 mg Tablet 40 mg PO QHS Qty: 30 0RF aspirin 81 mg Tablet,Delayed Release (Dr/Ec) 81 mg PO BREAKFAST Qty: 0 0RF carvedilol 3.125 mg Tablet 3.125 mg PO BIDCM Qty: 60 0RF potassium chloride 20 mEq tablet,ER particles/crystals 20 meq PO DAILY Qty: 30 0RF Continued lisinopril 20 mg tablet 20 mg PO DAILY Qty: 90 3RF Changed furosemide [Lasix] 40 mg tablet 40 mg PO BID Qty: 60 0RF Discontinued aspirin 325 mg tablet 325 mg PO DAILY Referrals / Follow Up: [facility] [Provider Group] - See Referral Note (in 1-2 months) Efrain Barahona DO [Primary Care Provider] - Within 2 Weeks Disposition Disposition (needs filled in before D/C Order can be placed): Home, Self Care Charges/Coding Visit Charges Inpatient E&M: 04625 Disch Hosp >30min
[2022-06-09 20:00] VITALS: BP 150/67; PULSE 60; RESP 16; TEMP 36.8; O2SAT 96
[2022-06-09] MEDS: Atorvastatin Calcium 40 MG Tablet PO (20:00)
--- NOTE | 2022-06-09 20:13 | NURSING ---
Discharge instructions given patient and son state understanding. IV site and telemetry removed. Reminded of need for follow up appointment with primary care in 1-2 weeks and follow up with the heart group. Educated on congestive heart failure and need to weigh self daily. CHF zone management tool given. Pt instructed to call staff when ride is available.
--- NOTE | 2022-06-09 20:55 | NURSING ---
Pt was discharged at this time with belongings.
== END 2022-06-09 21:00 | disposition home or self-care (01) | DRG 280 ==
LOC: ED 11:54 → PCU 12:30
PROVIDERS: Admitting Provider Internal Medicine; Emergency Provider Emergency Medicine; PCP Family Medicine
DX: I21.4 Non-ST elevation (NSTEMI) myocardial infarction (principal); I50.33 Acute on chronic diastolic (congestive) heart failure; I11.0 Hypertensive heart disease with heart failure; I16.0 Hypertensive urgency; I35.2 Nonrheumatic aortic (valve) stenosis with insufficiency; J45.20 Mild intermittent asthma, uncomplicated; I34.81 Nonrheumatic mitral (valve) annulus calcification; N40.0 Benign prostatic hyperplasia without lower urinary tract symptoms; Z66 Do not resuscitate; Z87.891 Personal history of nicotine dependence; Z96.651 Presence of right artificial knee joint; Z90.79 Acquired absence of other genital organ(s)
CPT/HCPCS: 36415; 51702; 71045; 71275; 78452; 80048; 80053; 80061; 80076; 81001; 83735; 83880; 84100; 84443; 84484; 85025; 85379; 85610; 85730; 93005; 93017; 93306; 94640; 94668; 97162; 97166; 99252; 99285; 99406; A9500; Q9967; A4216; G0463; J1940; J2785

== ENCOUNTER 2022-08-17 10:48 | Inpatient (IN) | payer OTHER, SELFPAY ==
[2022-08-17] VITALS (26 sets, daily range): BP systolic 77–132; BP diastolic 33–72; PULSE 61–88; RESP 14–21; TEMP 17.7–36.8; O2SAT 94–99; BMI 22.7; BMI 21.4
[2022-08-17] MEDS: 0.9% Normal Saline 1,000 ML 1000 ML IV (10:55)
--- NOTE | 2022-08-17 10:56 | EKG12_ITS ---
Test Reason : Blood Pressure : / mmHG Vent. Rate : 076 BPM Atrial Rate : 076 BPM P-R Int : 142 ms QRS Dur : 092 ms QT Int : 328 ms P-R-T Axes : 069 068 079 degrees QTc Int : 369 ms Normal sinus rhythm with sinus arrhythmia Normal ECG Confirmed by PARUL JAMESON, JAVY ([id number]), editor sound SUDHEER NIELSON ([id number]) on 08/19/2022 9:15:25 AM Referred By: Confirmed By:JAVY TERAN MD
--- NOTE | 2022-08-17 10:57 | EDS_ITS ---
HPI History of Present Illness Chief Complaint: Rash Narrative Narrative: Patient presents with generalized weakness and a rash. He has had decreased p.o. intake. In the past week. He has had itchy skin and a rash on his trunk since yesterday. No new medications do anything the son can think of is that they were feeding him blackberry wine in the rash started soon after. No fever or chills. Patient has incontinence. He normally walks around but its been more difficult in the past week and he has progressed and has been more weak. [facility] Medical History (HFpEF) heart failure with preserved ejection fraction BPH (benign prostatic hyperplasia) Cardiac murmur CHF (congestive heart failure) Elevated blood pressure reading in office without diagnosis of hypertension Essential hypertension Irregular heart rate Mitral valve annular calcification Nonrheumatic aortic (valve) stenosis with insufficiency Psoriasis Urinary retention Home Medications aspirin 81 mg tablet,delayed release 81 mg PO BREAKFAST #0 tabs 06/09/22 [Rx Last Taken Unknown] atorvastatin 40 mg tablet 40 mg PO QHS #90 tabs 07/06/22 [Rx Last Taken Unknown] carvedilol 3.125 mg tablet 3.125 mg PO BIDCM #180 tabs 07/06/22 [Rx Last Taken Unknown] furosemide 40 mg tablet (Lasix) 40 mg PO BID #180 tabs 07/06/22 [Rx Last Taken Unknown] lisinopril 20 mg tablet 20 mg PO DAILY #90 tabs 07/06/22 [Rx Last Taken Unknown] potassium chloride 20 mEq tablet,extended release(part/cryst) 20 meq PO DAILY #90 tabs 07/06/22 [Rx Last Taken Unknown] Allergy/AdvReac Type Severity Reaction Status Date / Time No Known Allergies Allergy Verified 08/17/22 11:08 Surgical History H/O cystoscopy (05/20/21) H/O transurethral resection of prostate (04/2020) History of excision of pilonidal cyst (05/20/21) History of hand surgery History of right knee surgery Social History Smoking Status: Former smoker alcohol intake: never substance use type: does not use caffeine: Yes maria fernanda/religious: Fitz ROS ROS ED ROS Narrative Past medical history: Reviewed, includes CO, CHF, hypertension and hypercholesterolemia Medications: Reviewed Social history: Lives with family Review of systems: All systems negative except as indicated General: No fever. Generalized weakness Eyes: No visual changes ENT: No upper airway congestion, normal voice Neck: No neck pain Cardiovascular: No chest pain Respiratory: No shortness of breath or cough Gastrointestinal: Initially was complaining of abdominal pain however he tells me it is just the rash in his abdomen does not hurt, it is just itchy. Genitourinary: No dysuria. Incontinence Musculoskeletal: Denies myalgias Skin: No rash Neurological: No memory loss, confusion or any focal weakness EXAM Physical Exam Narrative Exam Narrative: Physical exam General: Patient appears chronically ill but does not appear in significant distress Head: Normocephalic, Atraumatic Eyes: Conjunctiva not pale ENT: Dry mucous membranes. No mucosal involvement of the rash. Neck: Supple, Nontender, No lymphadenopathy Cardiovascular: Regular rate, Regular rhythm Respiratory: No distress, CTA bilaterally Abdomen: Soft, I am palpating throughout his entire abdomen he does not have any tenderness. No guarding. Back: Nontender, Normal Inspection. Negative for: CVA tenderness Extremities: Nontender, No edema Skin: Quite dry hands. He does have a truncal rash which is confluent erythematous and not raised. It blanches. It appears allergic. No signs of cellulitis. Neurological: Alert, Normal Strength, Normal Sensation Const Vital Signs: 08/17/22 10:53 08/17/22 11:01 Temperature 63.9 F L 98.2 F Temperature Source Temporal Temporal Pulse Rate 61 72 Respiratory Rate 16 16 Blood Pressure 113/48 L 132/52 H Blood Pressure Mean 69 78 Pulse Ox 97 98 Oxygen Delivery Method Room Air Room Air MDM MDM MDM Narrative Medical decision making narrative: Patient is found to be quite hyperkalemic and uremic. He also has acute kidney injury. This is likely all secondary to dehydration. IV fluids will be given, I will treat the hyperkalemia since there is slight peaked T waves. But I believe fluids are to make the biggest difference in fixing the underlying cause. We will admit the patient. I discussed with son who is in the room. I discussed with hospitalist. Patient is quite ill and at risk of having cardiac arrhythmias from his extreme hyperkalemia. Lab Data Labs: Laboratory Results - last 24 hr 08/17/22 08/17/22 08/17/22 11:15 11:15 11:15 WBC 10.0 RBC 3.83 L Hgb 10.5 L Hct 33.4 L MCV 87.2 MCH 27.4 MCHC 31.4 L RDW Std Deviation 50.5 H RDW Coeff of Zhao 15.9 H Plt Count 309 MPV 10.6 Immature Gran % (Auto) 0.300 Neut % (Auto) 71.2 H Lymph % (Auto) 11.2 L [place] % (Auto) 8.8 Eos % (Auto) 8.3 H Baso % (Auto) 0.2 Absolute Neuts (auto) 7.1 Absolute Lymphs (auto) 1.12 Nucleated RBC % 0 Sodium 133 L Potassium 7.7 H* Chloride 116 H Carbon Dioxide 18.0 L Anion Gap -1 L BUN 116 H* Creatinine 3.91 H Estim Creat Clear Calc 12.92 Est GFR (MDRD) Af Amer 19 L Est GFR (MDRD) Non-Af 16 L BUN/Creatinine Ratio 29.7 H Glucose 88 Calcium 8.5 Total Bilirubin 0.60 AST 29 ALT 50 Alkaline Phosphatase 228 H Troponin I High Sens 25 B-Natriuretic Peptide 70.3 Total Protein 7.0 Albumin 3.3 Globulin 3.7 Albumin/Globulin Ratio 0.9 EKG Initial EKG: Comments: Sinus rhythm with a rate of 76. Normal [place] and QTc intervals. Slightly peaked T waves in the anterior precordial leads. No widening of the QRS. Interpreted by emergency doctor. Critical Care Time Critical Care Time: Yes Critical care time (excluding procedures): 30-74 minutes (30 minutes), Including time spent:, Discussing w/Patient &/or Family/Emergency Vehicle Technician, Discussing w/Consultants, Arranging Admission or Transfer and Performing Direct Patient Care at Bedside Discharge Plan Triage Chief Complaint: Rash ED Provider: Mohamud Mixon Dx/Rx/DC Orders Clinical Impression: Acute hyperkalemia, Azotemia, Acute uremia, Dehydration, Weakness, Dermatitis Prescriptions: No Action carvedilol 3.125 mg tablet 3.125 mg PO BIDCM Qty: 180 3RF furosemide [Lasix] 40 mg tablet 40 mg PO BID Qty: 180 3RF potassium chloride 20 mEq tablet,ER particles/crystals 20 meq PO DAILY Qty: 90 3RF atorvastatin 40 mg tablet 40 mg PO QHS Qty: 90 3RF lisinopril 20 mg tablet 20 mg PO DAILY Qty: 90 3RF aspirin 81 mg Tablet,Delayed Release (Dr/Ec) 81 mg PO BREAKFAST Qty: 0 0RF Primary Care Provider: Efrain Barahona Referrals: Efrain Barahona DO [Primary Care Provider] - Disposition Disposition: Acute Care Hospital [facility]
[2022-08-17 11:26] LABS: Absolute Lymphocyte Count 1.12 X10^3/uL (0.83-4.51); Absolute Neutrophil Count 7.1 X10^3/uL (2.0-7.7); Basophil# 0.02 X10^3/uL; Basophil% 0.2 % (0-1); Eosinophil# 0.83 X10^3/uL; Eosinophils% 8.3 % (0-5); Hematocrit 33.4 % (40-54); Hemoglobin 10.5 g/dL (13.0-16.5); Lymphocyte # 1.12 X10^3/ul (0.83-4.51); Lymphocyte % 11.2 % (19-41); Mean Corp Hgb Conc 31.4 g/dL (32-36); Mean Corpuscular Hgb 27.4 pg (27.0-32.0); Mean Corpuscular Volume 87.2 fL (80-94); Mean Platelet Vol. 10.6 fl (6.2-12.0); Monocyte# 0.88 X10^3/uL; Monocyte% 8.8 % (0-10); NRBC Flagged by Analyzer 0 % (0-5); Neutrophil # 7.09 X10^3/uL (2.7-7.7); Neutrophil % 71.2 % (47-70); Platelet Count 309 K/mm3 (150-450); RBC Distribution Width CV 15.9 % (11.6-14.6); RBC Distribution Width SD 50.5 fl (35.1-43.9); Red Blood Count 3.83 M/mm3 (4.6-6.2)
--- NOTE | 2022-08-17 11:35 | RAD_ITS ---
STUDY: X-RAY CHEST REASON FOR EXAM: Male, 82 years old. Weakness TECHNIQUE: Single AP portable view of the chest. COMPARISON: Comparison is made with prior study dated June 07, 2022. FINDINGS: Residual mild increased markings in the right upper lobe suggestive of scarring although there has been improvement as compared to prior study. There is no demonstrated pleural abnormality. Normal size heart. Normal mediastinum and maria elena. Normal visualized pulmonary arteries. There is atherosclerotic calcification of the aortic arch with tortuosity. Normal visualized thoracic spine. There is degenerative osteoarthritis of the bilateral shoulders. There is no demonstrated abnormality of the visualized soft tissue structures of the upper abdomen. RAD/Chest 1 View (Portable) IMPRESSION: Mild residual increased markings in the right upper lobe. There has been improvement in aeration as compared to prior study. Electronically Signed: Wilfred Pittman MD at 12:16 EDT ,
[2022-08-17 11:39] LABS: BNP,B-Type NATRIURETIC PEPTIDE 70.3 pg/mL (0-100)
[2022-08-17 11:56] LABS: ALB/GLOB Ratio 0.9 RATIO (0.9-2.4); AST(SGOT) 29 U/L (15-37); Alanine Aminotransfer ALT/SGPT 50 U/L (16-61); Albumin, Serum 3.3 g/dL (3.2-5.0); Alkaline Phosphatase 228 U/L (45-117); Anion Gap -1 (5-15); BUN 116 mg/dL (7-18); BUN/Creat Ratio 29.7 RATIO (10-20); Calcium,Total 8.5 mg/dL (8.5-10.1); Chloride 116 mmol/L (98-107); Creatinine, Serum 3.91 mg/dL (0.70-1.30); EST Glomerular Filtration Rate 16 mL/min (>60); Est Glom Filt Rate - Afr Amer 19 mL/min (>60); Estimated Creatinine Clearance 12.92 ml/min; Globulin 3.7 g/dL (2.2-4.2); Glucose 88 mg/dL (74-106); Potassium 7.7 mmol/L (3.5-5.1); Sodium Level 133 mmol/L (136-145); Troponin-I HS 25 pg/mL (3.0-78.0)
[2022-08-17 12:03] LABS: Bacteria 0 SEEN /hpf (None Seen); Mucous, Urine 0 SEEN /hpf (<or=2+); Red Blood Cells-Urine 0 SEEN /hpf (0-5); Squamous Epithelial Cells - UA 0 SEEN /hpf (0-5); White Blood Cells 0 SEEN /hpf (0-5)
[2022-08-17 12:04] LABS: Color, Urine Yellow (Yellow); Glucose, Dipstick Normal (Normal); Ketone-Dipstick Negative (Negative); Leukocyte Esterase-Dipstick Negative /ul (Negative); Nitrite-Dipstick Negative (Negative); Occult Blood-Urine Negative /ul (Negative); Protein-Dipstick Negative (Negative); Urine Bilirubin Dipstick Negative (Negative); Urine Clarity Clear (Clear); Urine Urobilinogen Normal (Normal)
--- NOTE | 2022-08-17 12:06 | NURSING ---
08/17/22@1145- PT WAS INCONTINENT OF A MEDIUM SOFT BROWN BM. PT WAS THEN SC FOR 200ML OF URINE.
--- NOTE | 2022-08-17 12:32 | HP.PCM.HOS_ITS ---
HPI - General General Date of Admission: 08/17/22 HPI Narrative ARRON SUMMERS, is a 82 M who presents to the hospital with generalized weakness and a rash. Is unclear as to what initiated the rash, family feels that it is due to some blackberry wine but they were giving him. The weakness is started about the last week or so and since that time he has had some episodes of incontinence so family put him in adult diapers. He has not been eating or drinking secondary to a lack of appetite. On admission today for evaluation of his rash he was found to be hyperkalemic with potassium of 7.7 which was treated in the ER and also having acute renal failure with creatinine of 3.91 which is consistent with dehydration as his baseline creatinine is around 1.2 [facility] Medical History (HFpEF) heart failure with preserved ejection fraction BPH (benign prostatic hyperplasia) Cardiac murmur CHF (congestive heart failure) Elevated blood pressure reading in office without diagnosis of hypertension Essential hypertension Irregular heart rate Mitral valve annular calcification Nonrheumatic aortic (valve) stenosis with insufficiency Psoriasis Urinary retention Home Medications aspirin 81 mg tablet,delayed release 81 mg PO BREAKFAST [facility] 08/17/22 [History Last Taken 08/16/22] atorvastatin 40 mg tablet 40 mg PO QHS cholesterol 08/17/22 [History Last Taken 08/16/22] carvedilol 3.125 mg tablet 3.125 mg PO BIDCM heart 08/17/22 [History Last Taken 08/16/22] furosemide 40 mg tablet (Lasix) 40 mg PO BID fluid 08/17/22 [History Last Taken 08/16/22] lisinopril 20 mg tablet 20 mg PO DAILY blood pressure 08/17/22 [History Last Taken 08/16/22] potassium chloride 20 mEq tablet,extended release(part/cryst) 20 meq PO DAILY supplement 08/17/22 [History Last Taken 08/16/22] Allergy/AdvReac Type Severity Reaction Status Date / Time No Known Allergies Allergy Verified 08/17/22 11:08 Family History (Updated 08/17/22 @ 12:[address] Jasvir Zarco MD) Other Hypertension Surgical History H/O cystoscopy (05/20/21) H/O transurethral resection of prostate (04/2020) History of excision of pilonidal cyst (05/20/21) History of hand surgery History of right knee surgery Social History Smoking Status: Former smoker alcohol intake: never substance use type: does not use caffeine: Yes maria fernanda/zoroastrian: Synagogue ROS Constitutional Constitutional: Reports weakness; Denies chills, fatigue, fever(s) or malaise Eyes Eyes: Denies blurry vision ENT HEENT: Denies headache(s) or nasal discharge Cardiovascular Cardiovascular: Denies chest pain, dyspnea on exertion or syncope Respiratory/Chest Respiratory/Chest: Denies cough, shortness of breath at rest or shortness of breath with exertion Gastrointestinal Gastrointestinal: Denies constipation, diarrhea, nausea or vomiting Genitourinary Genitourinary: Denies dysuria Integumentary Integumentary: Reports rash Neurologic Neurologic: Denies focal weakness, numbness or tremor(s) Psychiatric Psychiatric: Denies anxiety or depression Vital Signs Vital Signs Vital Signs: 08/17/22 10:53 08/17/22 11:01 Temperature 63.9 F L 98.2 F Temperature Source Temporal Temporal Pulse Rate 61 72 Respiratory Rate 16 16 Blood Pressure 113/48 L 132/52 H Blood Pressure Mean 69 78 Pulse Ox 97 98 Oxygen Delivery Method Room Air Room Air Weight Weight: 140 lb 14.006 oz Body Mass Index (BMI) 22.7 Physical Exam Narrative General: Alert, Oriented x3, Cooperative, No apparent distress HEENT: Atraumatic, PERRLA, EOMI, Normocephalic Oral: Dry mucosa Neck: Supple, No JVD Lungs: Clear to auscultation, Normal air movement, No rhonchi, No wheeze, No rales Cardiovascular: Regular rate, Regular Rhythm, Normal S1, Normal S2, No murmurs Abdomen: Soft, Non Tender, Non-Distended, No Hepato-splenomegaly Extremities: No edema, Capillary Refill Less than 3 Seconds Skin: Rash over his trunk raised pink in color family says it is improving already Musculoskeletal: No Tenderness to Palpation of Joints or Extremities Neurological: Motor Exam 5/5 strength throughout, Sensory exam intact to light touch and pain Psych/Mental Status: Normal Affect, Appropriate Results Lab / Micro Data Result Diagrams: 08/17/22 11:15 08/17/22 11:15 Labs: Laboratory Results - last 24 hr 08/17/22 11:15: WBC 10.0, RBC 3.83 L, Hgb 10.5 L, Hct 33.4 L, MCV 87.2, MCH 27.4, MCHC 31.4 L, RDW Std Deviation 50.5 H, RDW Coeff of Zhao 15.9 H, Plt Count 309, MPV 10.6, Immature Gran % (Auto) 0.300, Neut % (Auto) 71.2 H, Lymph % (Auto) 11.2 L, [place] % (Auto) 8.8, Eos % (Auto) 8.3 H, Baso % (Auto) 0.2, Abs olute Neuts (auto) 7.1, Absolute Lymphs (auto) 1.12, Nucleated RBC % 0 08/17/22 11:15: Sodium 133 L, Potassium 7.7 H*, Chloride 116 H, Carbon Dioxide 18.0 L, Anion Gap -1 L, BUN 116 H*, Creatinine 3.91 H, Estim Creat Clear Calc 12.92, Est GFR (MDRD) Af Amer 19 L, Est GFR (MDRD) Non-Af 16 L, BUN/Creatinine Ratio 29.7 H, Glucose 88, Calcium 8.5, Total Bilirubin 0.60, AST 29, ALT 50, Alkaline Phosphatase 228 H, Troponin I High Sens 25, Total Protein 7.0, Albumin 3.3, Globulin 3.7, Albumin/Globulin Ratio 0.9 08/17/22 11:15: B-Natriuretic Peptide 70.3 08/17/22 12:00: Urine Color Yellow, Urine Clarity Clear, Urine pH 6.0, Ur Specific [place] 1.010, Urine Protein Negative, Urine Glucose (UA) Normal, Urine Ketones Negative, Urine Occult Blood Negative, Urine Nitrite Negative, Urine Bilirubin Negative, Urine Urobilinogen Normal, Ur Leukocyte Esterase Negative, Urine RBC 0 SEEN, Urine WBC 0 SEEN, Ur Squamous Epith Cells 0 SEEN, Urine Bacteria 0 SEEN, Urine Mucus 0 SEEN Radiology Impression Chest X-Ray 08/17/22 11:35 IMPRESSION: Mild residual increased markings in the right upper lobe. There has been improvement in aeration as compared to prior study. Electronically Signed: Wilfred Pittman MD at 12:16 EDT , Assessment & Plan Assessment/Plan (1) Acute hyperkalemia: (2) Dehydration: (3) Acute renal failure: PLAN: Plan 1. Acute renal failure secondary to dehydration from poor p.o. and continued Lasix and hyperkalemia secondary to dehydration, SHANTHI as well as continued potassium supplementation/rash ? We will place him on IV fluids and hold his Lasix as well as his potassium and lisinopril ? Rash appears to be improving, possibly due to uremia ? Repeat blood work in the morning ? During my evaluation he stated that he currently has an appetite now and is thirsty family reports that he had some episodes of diarrhea so it is hard to tell whether or not his lack of appetite is due to an enteritis or if it is a separate issue 2. HTN/HLD/chronic diastolic CHF ? Blood pressures are stable, can continue with his Coreg ? We will hold Lasix and lisinopril ? Continue with aspirin DVT: Lovenox 75 minutes was spent on direct patient care as well as chart review and collaboration with colleagues Charges/Coding Visit Charges Inpatient E&M: 30884 Init Hosp L3
[2022-08-17] MEDS: Calcium Gluconate IV 3 GM in Syringe 1 EACH IV (12:40)
[2022-08-17] MEDS: Dextrose 50%-Water 25 GM/50 ML DISP.SYRIN IV (12:40)
[2022-08-17] MEDS: Insulin Lispro 10 UNIT in Syringe 0 ML 6 UNIT IV (12:40)
--- NOTE | 2022-08-17 12:54 | NURSING ---
PCU KOTSONIS HYPERKALEMIA
--- NOTE | 2022-08-17 12:55 | NURSING ---
CV ICU 202
[2022-08-17] MEDS: 0.9% Normal Saline 1,000 ML 100 ML IV (14:27)
[2022-08-17] MEDS: Carvedilol 3.125 MG TABLET PO (16:49)
[2022-08-17] MEDS: Ensure Plus High Protein 120 ML LIQUID PO (16:49)
[2022-08-17] MEDS: Tamsulosin HCl 0.4 MG Capsule PO (16:49)
[2022-08-17] MEDS: Atorvastatin Calcium 40 MG Tablet PO (20:21)
[2022-08-17] MEDS: 0.9% Normal Saline 1,000 ML 999 ML IV (20:45)
[2022-08-18] VITALS (65 sets, daily range): BP systolic 70–154; BP diastolic 32–140; PULSE 56–93; RESP 12–19; TEMP 36.4–37.7; O2SAT 94–100; BMI 21.9
[2022-08-18] MEDS: 0.9% Normal Saline 1,000 ML 100 ML IV (02:39)
[2022-08-18] MEDS: 0.9% Saline Lock 10 ML Syringe IV ×2 (05:25→12:08)
[2022-08-18 05:28] LABS: Absolute Lymphocyte Count 0.91 X10^3/uL (0.83-4.51); Absolute Neutrophil Count 6.5 X10^3/uL (2.0-7.7); Basophil# 0.03 X10^3/uL; Basophil% 0.3 % (0-1); Eosinophil# 0.93 X10^3/uL; Eosinophils% 10.1 % (0-5); Lymphocyte # 0.91 X10^3/ul (0.83-4.51); Lymphocyte % 9.9 % (19-41); Mean Corpuscular Hgb 27.6 pg (27.0-32.0); Mean Platelet Vol. 10.6 fl (6.2-12.0); Monocyte# 0.78 X10^3/uL; Monocyte% 8.5 % (0-10); NRBC Flagged by Analyzer 0 % (0-5); Neutrophil # 6.49 X10^3/uL (2.7-7.7); Neutrophil % 70.9 % (47-70); Platelet Count 269 K/mm3 (150-450); RBC Distribution Width SD 52.5 fl (35.1-43.9); Red Blood Count 3.26 M/mm3 (4.6-6.2); White Blood Count 9.2 K/mm3 (4.4-11.0)
[2022-08-18 05:52] LABS: Anion Gap 2 (5-15); BUN 101 mg/dL (7-18); BUN/Creat Ratio 34.2 RATIO (10-20); Calcium,Total 8.3 mg/dL (8.5-10.1); Chloride 121 mmol/L (98-107); Creatinine, Serum 2.95 mg/dL (0.70-1.30); EST Glomerular Filtration Rate 22 mL/min (>60); Est Glom Filt Rate - Afr Amer 26 mL/min (>60); Glucose 92 mg/dL (74-106); Potassium 7.5 mmol/L (3.5-5.1); Sodium Level 141 mmol/L (136-145)
[2022-08-18] MEDS: Calcium Gluconate 1 GM/10 ML Vial IVP (07:44)
[2022-08-18] MEDS: Insulin Lispro 5 UNIT in Syringe 0 ML 6 UNIT IV (07:45)
[2022-08-18] MEDS: Dextrose 50%-Water 25 GM/50 ML DISP.SYRIN IV (07:46)
--- NOTE | 2022-08-18 08:05 | EKG12_ITS ---
Test Reason : Blood Pressure : / mmHG Vent. Rate : 075 BPM Atrial Rate : 075 BPM P-R Int : 134 ms QRS Dur : 082 ms QT Int : 336 ms P-R-T Axes : 019 059 079 degrees QTc Int : 375 ms Sinus rhythm with marked sinus arrhythmia Otherwise normal ECG When compared with ECG of 17-AUG-2022 11:12, MANUAL COMPARISON REQUIRED, DATA IS UNCONFIRMED Confirmed by PARUL JAMESON, JAVY ([id number]), development editor SUDHEER NIELSON ([id number]) on 08/19/2022 9:44:43 AM Referred By: IRIS Confirmed By:JAVY TERAN MD
[2022-08-18] MEDS: Albuterol 2.5 MG/3 ML VIAL.NEB. 20 MG INHALATION (08:33)
[2022-08-18] MEDS: Ensure Plus High Protein 120 ML LIQUID PO ×2 (10:15→12:58)
[2022-08-18] MEDS: Enoxaparin 30 MG/0.3 ML Syringe SC (10:17)
[2022-08-18] MEDS: Aspirin E.C. 81 MG Tablet PO (10:17)
--- NOTE | 2022-08-18 10:38 | PN.HOSP_ITS ---
Subjective Subjective Doing well, had to be started on pressors for over hypotension Objective Data Objective Data Vital Signs: Vital Signs Temp Pulse Resp BP Pulse Ox O2 Del Method 98.4 F 79 16 114/44 L 98 Room Air 08/18/22 09:00 08/18/22 09:00 08/18/22 09:00 08/18/22 09:00 08/18/22 09:00 08/18/22 09:00 Oxygen Delivery Method Room Air Weight: 135 lb 9.349 oz Body Mass Index (BMI) 21.9 Intake & Output: Intake and Output for Last 24 Hours 08/17/22 08/18/22 08/19/22 03:59 03:59 03:59 Intake Total 3750 / 3750 1054.35 / 1054.35 Output Total 750 / 750 800 / 800 Balance 3000 / 3000 254.35 / 254.35 Lab / Micro Data Result Diagrams: 08/18/22 05:15 08/18/22 05:15 Labs: Laboratory Results - last 24 hr 08/17/22 11:15: WBC 10.0, RBC 3.83 L, Hgb 10.5 L, Hct 33.4 L, MCV 87.2, MCH 27.4, MCHC 31.4 L, RDW Std Deviation 50.5 H, RDW Coeff of Zhao 15.9 H, Plt Count 309, MPV 10.6, Immature Gran % (Auto) 0.300, Neut % (Auto) 71.2 H, Lymph % (Auto) 11.2 L, [place] % (Auto) 8.8, Eos % (Auto) 8.3 H, Baso % (Auto) 0.2, Absolute Neuts (auto) 7.1, Absolute Lymphs (auto) 1.12, Nucleated RBC % 0 08/17/22 11:15: Sodium 133 L, Potassium 7.7 H*, Chloride 116 H, Carbon Dioxide 18.0 L, Anion Gap -1 L, BUN 116 H*, Creatinine 3.91 H, Estim Creat Clear Calc 12.92, Est GFR (MDRD) Af Amer 19 L, Est GFR (MDRD) Non-Af 16 L, BUN/Creatinine Ratio 29.7 H, Glucose 88, Calcium 8.5, Total Bilirubin 0.60, AST 29, ALT 50, Alkaline Phosphatase 228 H, Troponin I High Sens 25, Total Protein 7.0, Albumin 3.3, Globulin 3.7, Albumin/Globulin Ratio 0.9 08/17/22 11:15: B-Natriuretic Peptide 70.3 08/17/22 12:00: Urine Color Yellow, Urine Clarity Clear, Urine pH 6.0, Ur Specific [place] 1.010, Urine Protein Negative, Urine Glucose (UA) Normal, Urine Ketones Negative, Urine Occult Blood Negative, Urine Nitrite Negative, Urine Bilirubin Negative, Urine Urobilinogen Normal, Ur Leukocyte Esterase Negative, Urine RBC 0 SEEN, Urine WBC 0 SEEN, Ur Squamous Epith Cells 0 SEEN, Urine Bacteria 0 SEEN, Urine Mucus 0 SEEN 08/18/22 05:15: WBC 9.2, RBC 3.26 L, Hgb 9.0 L, Hct 29.0 L, MCV 89.0, MCH 27.6, MCHC 31.0 L, RDW Std Deviation 52.5 H, RDW Coeff of Zhao 16.0 H, Plt Count 269, MPV 10.6, Immature Gran % (Auto) 0.300, Neut % (Auto) 70.9 H, Lymph % (Auto) 9.9 L, [place] % (Auto) 8.5, Eos % (Auto) 10.1 H, Baso % (Auto) 0.3, Absolute Neuts (auto) 6.5, Absolute Lymphs (auto) 0.91, Nucleated RBC % 0 08/18/22 05:15: Sodium 141, Potassium 7.5 H*, Chloride 121 H, Carbon Dioxide 18.0 L, Anion Gap 2 L, BUN 101 H*, Creatinine 2.95 H, Estim Creat Clear Calc 16.50, Est GFR (MDRD) Af Amer 26 L, Est GFR (MDRD) Non-Af 22 L, BUN/Creatinine Ratio 34.2 H, Glucose 92, Calcium 8.3 L Radiography Diagnostic Testing: Radiology Impression Chest X-Ray 08/17/22 11:35 IMPRESSION: Mild residual increased markings in the right upper lobe. There has been improvement in aeration as compared to prior study. Electronically Signed: Wilfred Pittman MD at 12:16 EDT , Physical Exam Narrative General: Alert, Oriented x3, Cooperative, No apparent distress HEENT: Atraumatic, PERRLA, EOMI, Normocephalic Oral: Dry mucosa Neck: Supple, No JVD Lungs: Clear to auscultation, Normal air movement, No rhonchi, No wheeze, No rales Cardiovascular: Regular rate, Regular Rhythm, Normal S1, Normal S2, No murmurs Abdomen: Soft, Non Tender, Non-Distended, No Hepato-splenomegaly Extremities: No edema, Capillary Refill Less than 3 Seconds Skin: Rash over his trunk raised pink in color improving and less itchy Musculoskeletal: No Tenderness to Palpation of Joints or Extremities Neurological: Motor Exam 5/5 strength throughout, Sensory exam intact to light touch and pain Psych/Mental Status: Normal Affect, Appropriate Assessment & Plan Assessment/Plan (1) Acute hyperkalemia: (2) Dehydration: (3) Acute renal failure: PLAN: Plan 1. Acute renal failure secondary to dehydration from poor p.o. and continued Lasix and hyperkalemia secondary to dehydration, SHANTHI as well as continued potassium supplementation/rash/shock unknown etiology ?Hold his Lasix as well as his potassium and lisinopril ? Rash appears to be improving, possibly due to uremia ? During my evaluation he stated that he currently has an appetite now and is thirsty family reports that he had some episodes of diarrhea so it is hard to tell whether or not his lack of appetite is due to an enteritis or if it is a separate issue ? We will obtain multiple cultures to rule out an infectious source given the need for Levophed overnight ? Renal function is improving however potassium is down to only 7.5 he got repeated treatments this morning ? Fluids were transitioned to sodium bicarb 2. HTN/HLD/chronic diastolic CHF ?We will start on Levophed for hypotension, will hold his home blood pressure medications ? We will hold Lasix and lisinopril ? Continue with aspirin DVT: Lovenox Charges/Coding Visit Charges Inpatient E&M: 83331 Subs Hosp L2
[2022-08-18 12:45] LABS: Anion Gap 1 (5-15); BUN 85 mg/dL (7-18); BUN/Creat Ratio 33.7 RATIO (10-20); Calcium,Total 8.4 mg/dL (8.5-10.1); Chloride 121 mmol/L (98-107); Creatinine, Serum 2.52 mg/dL (0.70-1.30); EST Glomerular Filtration Rate 26 mL/min (>60); Est Glom Filt Rate - Afr Amer 32 mL/min (>60); Estimated Creatinine Clearance 19.32 ml/min; Glucose 175 mg/dL (74-106); Potassium 6.7 mmol/L (3.5-5.1); Sodium Level 141 mmol/L (136-145)
[2022-08-18] MEDS: Tamsulosin HCl 0.4 MG Capsule PO (16:52)
[2022-08-18] MEDS: Atorvastatin Calcium 40 MG Tablet PO (21:53)
[2022-08-19] VITALS (36 sets, daily range): BP systolic 91–156; BP diastolic 39–98; PULSE 14–95; RESP 12–120; TEMP 36.9–37.8; O2SAT 94–100; BMI 22.5
[2022-08-19 03:31] LABS: Absolute Lymphocyte Count 1.06 X10^3/uL (0.83-4.51); Absolute Neutrophil Count 6.2 X10^3/uL (2.0-7.7); Basophil# 0.03 X10^3/uL; Basophil% 0.3 % (0-1); Eosinophil# 1.59 X10^3/uL; Eosinophils% 16.4 % (0-5); Hemoglobin 6.8 g/dL (13.0-16.5); Lymphocyte # 1.06 X10^3/ul (0.83-4.51); Lymphocyte % 10.9 % (19-41); Mean Corp Hgb Conc 32.4 g/dL (32-36); Mean Corpuscular Hgb 28.1 pg (27.0-32.0); Mean Corpuscular Volume 86.8 fL (80-94); Mean Platelet Vol. 10.6 fl (6.2-12.0); Monocyte# 0.77 X10^3/uL; Monocyte% 7.9 % (0-10); NRBC Flagged by Analyzer 0 % (0-5); Neutrophil # 6.21 X10^3/uL (2.7-7.7); Neutrophil % 64.1 % (47-70); Platelet Count 328 K/mm3 (150-450); RBC Distribution Width CV 16.2 % (11.6-14.6); RBC Distribution Width SD 51.2 fl (35.1-43.9); Red Blood Count 2.42 M/mm3 (4.6-6.2); White Blood Count 9.7 K/mm3 (4.4-11.0)
[2022-08-19 03:53] LABS: ALB/GLOB Ratio 0.8 RATIO (0.9-2.4); AST(SGOT) 54 U/L (15-37); Alanine Aminotransfer ALT/SGPT 78 U/L (16-61); Albumin, Serum 2.6 g/dL (3.2-5.0); Alkaline Phosphatase 285 U/L (45-117); Anion Gap 2 (5-15); BUN 58 mg/dL (7-18); BUN/Creat Ratio 32.6 RATIO (10-20); Calcium,Total 8.1 mg/dL (8.5-10.1); Chloride 118 mmol/L (98-107); Creatinine, Serum 1.78 mg/dL (0.70-1.30); EST Glomerular Filtration Rate 39 mL/min (>60); Est Glom Filt Rate - Afr Amer 47 mL/min (>60); Estimated Creatinine Clearance 27.35 ml/min; Globulin 3.4 g/dL (2.2-4.2); Glucose 128 mg/dL (74-106); Potassium 5.7 mmol/L (3.5-5.1); Sodium Level 144 mmol/L (136-145)
--- NOTE | 2022-08-19 07:20 | US_ITS ---
STUDY: ABDOMINAL ULTRASOUND - RIGHT UPPER QUADRANT REASON FOR VISIT: Male, 82 years old Febrile with rising LFTs TECHNIQUE: Ultrasound evaluation of the right upper quadrant was performed with real-time and static payan-scale imaging. TECHNICAL QUALITY: Adequate. COMPARISON: None. FINDINGS: Liver: The liver measures 14.9 cm. There is increased echogenicity consistent with fatty infiltration. The bile ducts are within normal limits. There is hepatic color flow. The direction of portal flow is hepatopetal. There is no demonstrated mass lesion. Gallbladder: Normal distended gallbladder. The gallbladder wall measures 2.0 mm. There is a negative sonographic Shah''s sign. There is no pericholecystic fluid. There are no gallstones. Sludge is seen within the gallbladder lumen. Common Bile Duct (C.B.D.): The common bile duct measures 7.3 mm. Pancreas: Normal size of the head, body and tail of the pancreas. There is no demonstrated pancreatic mass or cyst. Right Kidney: Normal size of the right kidney. The right kidney measures 9.9 cm x 5 cm x 4.2 cm. Normal renal cortex. The right cortex measures 1.1 cm. There is no demonstrated renal mass or cyst. There is no right hydronephrosis. US/Gallbladder IMPRESSION: Fatty infiltration of the liver. Small amount of sludge is seen within the gallbladder lumen. Electronically Signed: Wilfred Pittman MD at 13:33 EDT ,
[2022-08-19] MEDS: Acetaminophen 325 MG Tablet 650 MG PO (07:39)
[2022-08-19] MEDS: 0.9% Normal Saline 1,000 ML 75 ML IV ×2 (07:43→21:47)
[2022-08-19] MEDS: Aspirin E.C. 81 MG Tablet PO (07:43)
[2022-08-19] MEDS: Enoxaparin 30 MG/0.3 ML Syringe SC (07:44)
--- NOTE | 2022-08-19 07:58 | EKG12_ITS ---
Test Reason : CHEST PRESSURE Blood Pressure : / mmHG Vent. Rate : 083 BPM Atrial Rate : 083 BPM P-R Int : 124 ms QRS Dur : 082 ms QT Int : 350 ms P-R-T Axes : 078 068 077 degrees QTc Int : 411 ms Normal sinus rhythm Normal ECG No previous ECGs available Confirmed by PARUL JAMESON, JAVY ([id number]), pictures editor SUDHEER NIELSON ([id number]) on 08/26/2022 12:22:09 PM Referred By: FILIBERTO Confirmed By:JAVY TERAN MD
[2022-08-19 08:15] LABS: Hemoglobin 9.9 g/dL (13.0-16.5)
--- NOTE | 2022-08-19 08:22 | EX.PCM.CONCC ---
Assessment & Plan Assessment/Plan (1) Septic shock: PLAN: Likely due to viral gastroenteritis. White count is normal,, he is on Levophed at 6 mics per minute and weaning as he is rehydrated. He is already improving. - Check lactates - Rehydration, in the setting of moderate aortic stenosis he is likely very volume sensitive, will need to aggressively replete preload to get him off pressors. - Empiric Zosyn started by hospitalist, agree. I discussed the case with him. - Supportive care -No evidence of cardiogenic shock; EKG is unchanged, troponin is normal. Case discussed with Dr. Barclay no echo needed at this time, most recent echo was May 2022. (2) Gastroenteritis: PLAN: The patient has had 2 days of diarrhea without nausea or vomiting. He arrived with prerenal azotemia, diarrhea has more or less subsided. - Check C. difficile result - Obtain stool for culture, Salmonella Shigella and O&P if he continues to have diarrhea in ICU. - Supportive care, rehydration - He has been weaned off bicarbonate drip successfully. (3) Aortic valve stenosis, moderate: PLAN: Stable, subacute endocarditis is unlikely in the setting of normal white count and to date acute illness course. - Rehydration, as above to reestablish preload and minimize hypotension in the setting of aortic stenosis. He will receive another liter of fluid this morning (4) Acute renal failure: PLAN: , Likely secondary to dehydration and poor forward flow with hypotension. Already improving with hydration. - Monitor and manage fluid and electrolytes per usual ICU routine -Monitor I's and O's and daily weights, his urine flow is adequate at this time. - Consult renal if his function worsens. - Patient has had a TURP, he had no kidney pain on exam today, he will have a right upper quadrant ultrasound for abnormal LFTs and can check for obstructive uropathy at the same time. (5) (HFpEF) heart failure with preserved ejection fraction: PLAN: Stable, no congestive heart failure on exam at this time. (6) Dehydration: PLAN: As above (7) Eosinophilia: PLAN: Patient has a history of psoriasis, which is related frequently with eosinophilia. This may be chronic, although his acute rash may be related to some acute allergic or viral reaction. However he denies having a rash or pruritus prior to admission, denies any medication or environmental allergies. - Monitor eosinophil count - De-escalate antibiotics when possible - Check serum IgE - Consider sending an allergy profile - Local skin care PLAN: Plan As above. Wounds: The patient also has incidentally noted abrasion of his large and second right toes. his shoes may be too tight. - Local care HPI Consult Data Date of Consult: 08/19/22 HPI Narrative Reason for Consultation: febrile septic shock and gastroenteritis on pressors HPI Narrative: ARRON SUMMERS, is a 82 M who presents with gastroenteritis, dehydration, SHANTHI, abnormal liver function tests, who worsened within his first 24 hours of hospitalization with hypotension and was transferred to ICU this morning where I am consulted for hypotensive sepsis. Arron was moderately confused when I took a history today, but he thought he was sick with gastroenteritis and diarrhea for about 2 days. He did not know why he came to the hospital. He denied dysuria, flank pain, headache, rash, earache, sore throat, cough, sputum, leg swelling, abdominal pain, myalgias and arthralgias, pleurisy, dyspnea. He did have a mild rash in the hospital, and has marked eosinophilia on his differential with normal white count. He denies any new medications and does not remember the last time he was on antibiotics. He has no known allergies. There are no sick contacts, he lives at home with his . He denies drinking alcohol and never had an alcohol problem. He is a former light smoker of less than a pack a day for less than 20 years, quit many years ago was unsure exactly when. He is currently on Levophed at 6 mics per minute. He has moderate aortic stenosis, is followed by Dr. Barclay, who I discussed this case with, and was complaining of mild chest pressure when I first encountered him. His EKG today was unchanged with no ischemia. Troponins are pending. He has ejection fraction of 55%, and denies dizziness, syncope, and told me that that they were watching his heart valve and not have plans for needing surgery soon. He denied history of renal dysfunction, liver disease, cancer, stroke, seizure, diabetes, thyroid disease, environmental allergies or rash. His kidney function has begun to improve after sepsis rehydration therapy, and we are awaiting right upper quadrant sono today. There is no history of lung disease including asthma, COPD, pneumonia, blood clots, pneumothorax. He is not on inhalers. He denies prior pulmonary function test and has never been told of emphysema. Discussed with Dr. Howard. Chart was reviewed. [facility] Medical History (Updated 08/19/22 @ 09:[address] Hung Tamez MD) (HFpEF) heart failure with preserved ejection fraction Aortic valve stenosis, moderate BPH (benign prostatic hyperplasia) Cardiac murmur CHF (congestive heart failure) Elevated blood pressure reading in office without diagnosis of hypertension Eosinophilia Essential hypertension Gastroenteritis Irregular heart rate Mitral valve annular calcification Nonrheumatic aortic (valve) stenosis with insufficiency Psoriasis Septic shock Urinary retention Home Medications aspirin 81 mg tablet,delayed release 81 mg PO BREAKFAST heart health 08/17/22 [History Last Taken 08/16/22] atorvastatin 40 mg tablet 40 mg PO QHS cholesterol 08/17/22 [History Last Taken 08/16/22] carvedilol 3.125 mg tablet 3.125 mg PO BIDCM heart 08/17/22 [History Last Taken 08/16/22] furosemide 40 mg tablet (Lasix) 40 mg PO BID fluid 08/17/22 [History Last Taken 08/16/22] lisinopril 20 mg tablet 20 mg PO DAILY blood pressure 08/17/22 [History Last Taken 08/16/22] potassium chloride 20 mEq tablet,extended release(part/cryst) 20 meq PO DAILY supplement 08/17/22 [History Last Taken 08/16/22] Allergy/AdvReac Type Severity Reaction Status Date / Time No Known Allergies Allergy Verified 08/17/22 11:08 Family History (Updated 08/17/22 @ 12:[address] Jasvir Zarco MD) Other Hypertension Surgical History H/O cystoscopy (05/20/21) H/O transurethral resection of prostate (04/2020) History of excision of pilonidal cyst (05/20/21) History of hand surgery History of right knee surgery Social History Smoking Status: Former smoker alcohol intake: never substance use type: does not use caffeine: Yes maria fernanda/zoroastrian: Fitz ROS ROS Narrative 12 system review is negative except as above Physical Exam Narrative Well-developed well-nourished confused, in no acute distress. HEENT normocephalic atraumatic extraocular's are intact pupils are equal and reactive, no nystagmus, icterus or injected conjunctiva. Neck is supple with no JVD thyromegaly mass or bruit there is a transmitted murmur to the neck from AAS. Chest is clear bilaterally with no wheezes rales or rhonchi. Good symmetrical air movement and diaphragmatic excursion. No consolidation. Heart normal S1-S2 with a crescendo decrescendo murmur 4 out of 6 heard throughout the anterior chest more so on the left upper chest radiating to the neck. Abdomen is soft nontender distended, no organomegaly no hepatic tenderness to thump,, positive normoactive bowel sounds Back: No costovertebral angle tenderness including to kidney thump, [place] draining clear light-colored yellow urine in moderate quantities. Extremities have no clubbing cyanosis or edema. There are 2 abrasions in the right first and second toe with the appearance of tight shoes injury Neuro is nonfocal, good strength, symmetrical, confusion as above oriented x2, no drift or focality. Skin is cool and dry. There is a rash on the back which appears to be pimples Medical Records Data Attestation: I reviewed the patient's medical records Lab / Micro Data Result Diagrams: 08/19/22 08:00 08/19/22 03:20 Labs: Laboratory Results - last 24 hr 08/18/22 12:05: Sodium 141, Potassium 6.7 H*, Chloride 121 H, Carbon Dioxide 19.0 L, Anion Gap 1 L, BUN 85 H, Creatinine 2.52 H, Estim Creat Clear Calc 19.32, Est GFR (MDRD) Af Amer 32 L, Est GFR (MDRD) Non-Af 26 L, BUN/Creatinine Ratio 33.7 H, Glucose 175 H, Calcium 8.4 L 08/19/22 03:20: WBC 9.7, RBC 2.42 L, Hgb 6.8 L, Hct 21.0 L, MCV 86.8, MCH 28.1, MCHC 32.4, RDW Std Deviation 51.2 H, RDW Coeff of Zhao 16.2 H, Plt Count 328, MPV 10.6, Immature Gran % (Auto) 0.400, Neut % (Auto) 64.1, Lymph % (Auto) 10.9 L, [place] % (Auto) 7.9, Eos % (Auto) 16.4 H, Baso % (Auto) 0.3, Absolute Neuts (auto) 6.2, Absolute Lymphs (auto) 1.06, Nucleated RBC % 0 08/19/22 03:20: Sodium 144, Potassium 5.7 H, Chloride 118 H, Carbon Dioxide 24.0, Anion Gap 2 L, BUN 58 H, Creatinine 1.78 H, Estim Creat Clear Calc 27.35, Est GFR (MDRD) Af Amer 47 L, Est GFR (MDRD) Non-Af 39 L, BUN/Creatinine Ratio 32.6 H, Glucose 128 H, Calcium 8.1 L, Total Bilirubin 0.40, AST 54 H, ALT 78 H, Alkaline Phosphatase 285 H, Total Protein 6.0 L, Albumin 2.6 L, Globulin 3.4, Albumin/Globulin Ratio 0.8 L 08/19/22 05:00: Blood Type O POSITIVE, Antibody Screen NEGATIVE 08/19/22 08:00: Hgb 9.9 L, Hct 31.0 L Micro: Microbiology 08/18/22 10:20 Stool Stool Occult Blood (JEANNA) - Final 08/18/22 10:20 Stool Enteric Bacteriology - Final 08/18/22 10:20 Stool C. difficile GDH Antigen & Toxins - Final Charges/Coding Procedures Hospitalists Procedures: 70045 Critial Care 1st Hr
[2022-08-19 08:40] LABS: Troponin-I HS 28 pg/mL (3.0-78.0)
[2022-08-19] MEDS: 0.9% Normal Saline 1,000 ML 999 ML IV (09:43)
--- NOTE | 2022-08-19 09:56 | CASEMGMT ---
RN?CM?MANAGER FINANCIAL SERVICES?CM?to room to meet with patient for initial transition planning/care coordination?assessment.?RN?CM?introduced self and role at [facility].? Pt voices understanding and consents to?assessment?at this time.? Pt resting in bed in no distress at this time.? and DIL @ bedside and pt agreeable to them being present during assessment. Pt is A/O at this time and answers all questions appropriately.?? Care providers, pharmacy, and demographics verified/updated at this time. PCP: Dr Efrain Barahona Specialists: Dr Paez-urologist, Dr Barclay-cardiolgist. Pt does not see a neurologist. Preferred Pharmacy: [facility] @ discharge. Insurance: AA Prescription Benefit:?none Living Will/HPOA:?Pt does not currently have LW/HCPOA. Pt and family made aware that SW can assist w/completing these either while @ [facility] or as an OP. Pt states he wants to think about it and will let staff know if he decides he would like to complete them. LNOK: , Nathalia. Son, Carrington. Son, Torito. Living Arrangements: Lives w/his in 2-story home w/ramp entrance. FFSU. Pt was indep in the past w/ADL's, but pt has become weaker over the past couple of weeks and has been assisting pt w/bathing and dressing. She states it has been becoming more difficult to take care of him. Transportation:?Hire drivers. DME: Has the following DME:?cane, walker, raised toilet seat, toilet siderails, W/C, grab bars, and glucometer ? states no need for further DME at this time.? HHC/SNF:No hx SNF. Pt has had [facility] in the home in the past. Discussed therapy eval and recommendations for SNF, as pt is weak. Per therapy, pt is needing at least 1-2 assist w/ambulation and transfers. Discussed options of Rehab, SNF, and HHC. , pt, and DIL all discussed these together and they all agree that they would like pt to return home. DIL states they have a lot of family that is able to help and can help take care of pt. They state they would like [facility] for therapy again and decline wanting list of other HHC options. Call placed to Diomedes @ [facility] in [place]. She states they can accept pt and requests referral be faxed to them @ [phone]. Pt was just getting PT in the past. She states they can evaluate pt for possible need of OT when they start seeing pt and will add OT on at that time if recommended and if family agreeable. Diomedes requests they be notified when pt is discharged home. Pt and family wish for pt to return home and states has no concerns with going home at time of discharge.? CM?to follow for any further discharge planning/needs.? Pt and family voice no further concerns/needs at this time.? Advised them to ask for?CM?if any further questions/concerns/needs arise.? They voice understanding. PLAN:??Home w/family support and [facility] in the home. No Rx benefits. Follow for cost of meds @ d/c. Jaspal MATHIASN?RN?CM
--- NOTE | 2022-08-19 10:07 | CASEMGMT ---
Discharge Planning order faxed to [facility] ([phone]). Kirstie Capps
--- NOTE | 2022-08-19 11:01 | CASEMGMT ---
Social Work Per DAINA Harper, pt does not have advance directives and is not interested in completing at this time. Educational Information provided. ROSEMARIE Soliz
[2022-08-19 14:50] LABS: Hematocrit 29.6 % (40-54); Hemoglobin 9.5 g/dL (13.0-16.5)
--- NOTE | 2022-08-19 15:54 | PN.HOSP_ITS ---
Subjective Subjective Is on pressors overnight though he is not very symptomatic. Initial hemoglobin this morning was 6.8 recheck is 9.9 Objective Data Objective Data Vital Signs: Vital Signs Temp Pulse Resp BP Pulse Ox O2 Del Method 98.5 F 68 14 114/56 L 100 Room Air 08/19/22 12:00 08/19/22 15:00 08/19/22 15:00 08/19/22 15:00 08/19/22 15:00 08/19/22 15:00 Oxygen Delivery Method Room Air Weight: 139 lb 8.842 oz Body Mass Index (BMI) 22.5 Intake & Output: Intake and Output for Last 24 Hours 08/18/22 08/19/22 08/20/22 03:59 03:59 03:59 Intake Total 3750 / 3750 2857.04 / 2859.87 2187.96 / 2187.96 Output Total 750 / 750 2850 / 2850 1350 / 1350 Balance 3000 / 3000 7.04 / 9.87 837.96 / 837.96 Lab / Micro Data Result Diagrams: 08/19/22 14:25 08/19/22 03:20 Labs: Laboratory Results - last 24 hr 08/19/22 03:20: WBC 9.7, RBC 2.42 L, Hgb 6.8 L, Hct 21.0 L, MCV 86.8, MCH 28.1, MCHC 32.4, RDW Std Deviation 51.2 H, RDW Coeff of Zhao 16.2 H, Plt Count 328, MPV 10.6, Immature Gran % (Auto) 0.400, Neut % (Auto) 64.1, Lymph % (Auto) 10.9 L, [place] % (Auto) 7.9, Eos % (Auto) 16.4 H, Baso % (Auto) 0.3, Absolute Neuts (auto) 6.2, Absolute Lymphs (auto) 1.06, Nucleated RBC % 0 08/19/22 03:20: Sodium 144, Potassium 5.7 H, Chloride 118 H, Carbon Dioxide 24.0, Anion Gap 2 L, BUN 58 H, Creatinine 1.78 H, Estim Creat Clear Calc 27.35, Est GFR (MDRD) Af Amer 47 L, Est GFR (MDRD) Non-Af 39 L, BUN/Creatinine Ratio 32.6 H, Glucose 128 H, Calcium 8.1 L, Total Bilirubin 0.40, AST 54 H, ALT 78 H, Alkaline Phosphatase 285 H, Total Protein 6.0 L, Albumin 2.6 L, Globulin 3.4, Albumin/Globulin Ratio 0.8 L 08/19/22 05:00: Blood Type O POSITIVE, Antibody Screen NEGATIVE 08/19/22 05:00: Crossmatch See Detail 08/19/22 08:00: Hgb 9.9 L, Hct 31.0 L 08/19/22 08:00: Troponin I High Sens 28 08/19/22 14:25: Hgb 9.5 L, Hct 29.6 L Micro: Microbiology 08/19/22 12:35 Stool Stool Occult Blood (JEANNA) - Final 08/18/22 09:50 Urine, Clean Catch Urine Culture - Preliminary Presumptive E. coli 08/18/22 10:20 Stool Stool Occult Blood (JEANNA) - Final 08/18/22 10:20 Stool Enteric Bacteriology - Final 08/18/22 10:20 Stool C. difficile GDH Antigen & Toxins - Final Radiography Diagnostic Testing: Radiology Impression Gallbladder Ultrasound 08/19/22 07:20 IMPRESSION: Fatty infiltration of the liver. Small amount of sludge is seen within the gallbladder lumen. Electronically Signed: Wilfred Pittman MD at 13:33 EDT , Physical Exam Narrative General: Alert, Oriented x3, Cooperative, No apparent distress HEENT: Atraumatic, PERRLA, EOMI, Normocephalic Oral: Dry mucosa Neck: Supple, No JVD Lungs: Clear to auscultation, Normal air movement, No rhonchi, No wheeze, No ra les Cardiovascular: Regular rate, Regular Rhythm, Normal S1, Normal S2, No murmurs Abdomen: Soft, Non Tender, Non-Distended, No Hepato-splenomegaly Extremities: No edema, Capillary Refill Less than 3 Seconds Skin: Rash has resolved Musculoskeletal: No Tenderness to Palpation of Joints or Extremities Neurological: Motor Exam 5/5 strength throughout, Sensory exam intact to light touch and pain Psych/Mental Status: Normal Affect, Appropriate Assessment & Plan Assessment/Plan (1) Acute hyperkalemia: (2) Dehydration: (3) Acute renal failure: PLAN: Plan 1. Acute renal failure secondary to dehydration from poor p.o. and continued Lasix and hyperkalemia secondary to dehydration, SHANTHI as well as continued potassium supplementation/rash/septic shock gastroenteritis versus UTI ?Hold his Lasix as well as his potassium and lisinopril ? Rash has resolved ? Shock is possibly due to his gastroenteritis which would be a viral etiology ? Wean Levophed as able, will start on Zosyn and get a gallbladder ultrasound ? Renal function and potassium are normalizing ? Transition back to normal saline ? We will consult superintendent seed mill ? IgE is pending secondary to eosinophilia, he does have a history of psoriasis ? Urine culture with 80,000 100,000 CFU of E. coli sensitivities are pending, UA was unremarkable on admission with nothing abnormal 2. HTN/HLD/chronic diastolic CHF ?We will start on Levophed for hypotension, will hold his home blood pressure medications ? We will hold Lasix and lisinopril ? Continue with aspirin DVT: Lovenox Charges/Coding Visit Charges Inpatient E&M: 71815 Subs Hosp L2
[2022-08-19] MEDS: Tamsulosin HCl 0.4 MG Capsule PO (18:09)
[2022-08-19] MEDS: Atorvastatin Calcium 40 MG Tablet PO (21:48)
[2022-08-20] VITALS (14 sets, daily range): BP systolic 122–170; BP diastolic 45–91; PULSE 67–105; RESP 11–22; TEMP 36.4–37.6; O2SAT 94–100; BMI 22.7
[2022-08-20 03:32] LABS: Absolute Lymphocyte Count 0.86 X10^3/uL (0.83-4.51); Absolute Neutrophil Count 6.3 X10^3/uL (2.0-7.7); Basophil# 0.05 X10^3/uL; Basophil% 0.5 % (0-1); Eosinophils% 22.6 % (0-5); Hematocrit 26.9 % (40-54); Hemoglobin 8.4 g/dL (13.0-16.5); Lymphocyte # 0.86 X10^3/ul (0.83-4.51); Lymphocyte % 8.4 % (19-41); Mean Corp Hgb Conc 31.2 g/dL (32-36); Mean Corpuscular Hgb 27.3 pg (27.0-32.0); Mean Corpuscular Volume 87.3 fL (80-94); Mean Platelet Vol. 10.7 fl (6.2-12.0); Monocyte# 0.68 X10^3/uL; Monocyte% 6.7 % (0-10); NRBC Flagged by Analyzer 0 % (0-5); Neutrophil # 6.27 X10^3/uL (2.7-7.7); Neutrophil % 61.3 % (47-70); POSITIVE DIFFERENTIAL YES; Platelet Count 274 K/mm3 (150-450); RBC Distribution Width CV 16.2 % (11.6-14.6); Red Blood Count 3.08 M/mm3 (4.6-6.2); White Blood Count 10.2 K/mm3 (4.4-11.0)
[2022-08-20 03:47] LABS: Differential Comment SCANNED; Differential Indicated SCAN CRITERIA MET; Eosinophil# 2.31 X10^3/uL
[2022-08-20 04:28] LABS: ALB/GLOB Ratio 0.7 RATIO (0.9-2.4); AST(SGOT) 64 U/L (15-37); Alanine Aminotransfer ALT/SGPT 110 U/L (16-61); Albumin, Serum 2.5 g/dL (3.2-5.0); Alkaline Phosphatase 311 U/L (45-117); Anion Gap 6 (5-15); BUN 31 mg/dL (7-18); BUN/Creat Ratio 20.4 RATIO (10-20); Chloride 117 mmol/L (98-107); Creatinine, Serum 1.52 mg/dL (0.70-1.30); EST Glomerular Filtration Rate 47 mL/min (>60); Est Glom Filt Rate - Afr Amer 57 mL/min (>60); Estimated Creatinine Clearance 32.97 ml/min; Globulin 3.5 g/dL (2.2-4.2); Glucose 90 mg/dL (74-106); Potassium 5.1 mmol/L (3.5-5.1); Sodium Level 145 mmol/L (136-145)
--- NOTE | 2022-08-20 07:59 | PCM.PN.INT ---
Assessment & Plan Assessment/Plan (1) Septic shock: PLAN: Likely due to gastroenteritis, although the GI pathogen PCR and C. difficile were negative. Pressors weaned off yesterday. Ready to transfer out of ICU. The differential includes his E. coli UTI, an allergic reaction. Cardiac evaluation with no new acute pathology. Patient has no new exposures, does have abnormal LFTs which are worsening although renal failure is improved, which can be solely due to septic shock. Right upper quadrant sono showed fatty liver with sludge but no stones or biliary obstruction. He is not jaundiced. - Empiric Zosyn started by hospitalist, agree. I discussed the case with him. - Advance diet as tolerated -Stool for O&P, Giardia -Region 5 RAST, await IgE Since patient is improved, going to PCU status today and transferring out of ICU, critical care will sign off. Thank you for consulting [facility] on this pleasant gentleman. (2) Dehydration: PLAN: Resolved (3) Gastroenteritis: PLAN: Resolved (4) E. coli UTI (urinary tract infection): PLAN: Patient remains on empiric Zosyn, which covers his E. coli. Consider de-escalating to p.o. Augmentin Check procalcitonin, but agree with early discontinuation of antibiotics if procalcitonin decreases below 0.5. (5) Acute renal failure: PLAN: Resolving. - Monitor and manage fluid and electrolytes per usual ICU routine -Monitor I's and O's and daily weights, his urine flow is adequate at this time. - Consult renal if his function worsens. - Right upper quadrant ultrasound was unremarkable with regard to right kidney (6) Aortic valve stenosis, moderate: PLAN: Stable, subacute endocarditis is unlikely in the setting of normal white count and to date acute illness course. - Rehydration, as above to reestablish preload and minimize hypotension in the setting of aortic stenosis. 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 No rash today. However he denies having a rash or pruritus prior to admission, denies any medication or environmental allergies. - Monitor eosinophil count - De-escalate antibiotics when possible - Check serum IgE - Region 5 RAST - Local skin care (8) (HFpEF) heart failure with preserved ejection fraction: PLAN: Stable, no congestive heart failure on exam at this time. (9) Psoriasis: PLAN: Stable. May be related to eosinophilia. PLAN: Plan Care time spent with patient at bedside, review of documentation, lab results, radiology and other test results, discussion with colleagues and ancillary staff, clinical management of patient, and updating family if applicable, was 35 minutes[place] [address]. Subjective Subjective Still confused, poor appetite, but feels better. Denies any diarrhea nausea vomiting chest pain shortness of breath cough fevers or sweats. Objective Data Objective Data Patient was weaned off Levophed yesterday morning approximately 10 AM. No hemodynamic instability or tachycardia. Stable overnight Stool cultures pending, white count normal, eosinophilia and abnormal LFTs are increasing, renal function is improved. No CHF exacerbation at this time, lungs are clear. Vital Signs: Vital Signs Temp Pulse Resp BP Pulse Ox O2 Del Method 99.1 F 82 13 152/49 H 99 Room Air 08/20/22 07:00 08/20/22 07:00 08/20/22 07:00 08/20/22 07:00 08/20/22 07:00 08/20/22 07:00 Oxygen Delivery Method Room Air Weight: 141 lb 1.533 oz Body Mass Index (BMI) 22.7 Intake & Output: Intake and Output for Last 24 Hours 08/18/22 08/19/22 08/20/22 23:59 23:59 23:59 Intake Total 3092.93 / 3104.23 3348.32 / 3348.32 457.5 / 457.5 Output Total 2850 / 2850 1950 / 1950 800 / 800 Balance 242.93 / 254.23 1398.32 / 1398.32 -342.5 / -342.5 Lab / Micro Data Attestation: I reviewed the patient's lab results. Lab results narrative: Below labs were reviewed. Micro: Blood cultures are negative, stool enteric pathogen PCR and C. difficile were negative, stool occult blood negative. O&P stool is not available, however Giardia was ordered today. IgE is pending, RAST for region 5 was ordered. Eosinophils have increased for uncertain reasons. Result Diagrams: 08/20/22 03:00 08/20/22 03:00 Labs: Laboratory Results - last 24 hr 08/19/22 05:00: Crossmatch See Detail 08/19/22 08:00: Hgb 9.9 L, Hct 31.0 L 08/19/22 08:00: Troponin I High Sens 28 08/19/22 14:25: Hgb 9.5 L, Hct 29.6 L 08/20/22 03:00: WBC 10.2, RBC 3.08 L, Hgb 8.4 L, Hct 26.9 L, MCV 87.3, MCH 27.3, MCHC 31.2 L, RDW Std Deviation 52.0 H, RDW Coeff of Zhao 16.2 H, Plt Count 274, MPV 10.7, Immature Gran % (Auto) 0.500, Neut % (Auto) 61.3, Lymph % (Auto) 8.4 L, [place] % (Auto) 6.7, Eos % (Auto) 22.6 H, Baso % (Auto) 0.5, Absolute Neuts (auto) 6.3, Absolute Lymphs (auto) 0.86, Nucleated RBC % 0, Differential Comment SCANNED, Diff Path Review July08/20/22 03:00: Sodium 145, Potassium 5.1, Chloride 117 H, Carbon Dioxide 22.0, Anion Gap 6, BUN 31 H, Creatinine 1.52 H, Estim Creat Clear Calc 32.97, Est GFR (MDRD) Af Amer 57 L, Est GFR (MDRD) Non-Af 47 L, BUN/Creatinine Ratio 20.4 H, Glucose 90, Calcium 8.0 L, Total Bilirubin 0.90, AST 64 H, ALT 110 H, Alkaline Phosphatase 311 H, Total Protein 6.0 L, Albumin 2.5 L, Globulin 3.5, Albumin/Globulin Ratio 0.7 L Micro: Microbiology 08/18/22 09:55 Blood Culture (Wb) - Right Forearm Blood Culture - Preliminary No growth in 48 hours. 08/18/22 09:30 Blood Culture (Wb) - Anticubital Left Blood Culture - Preliminary No growth in 48 hours. 08/19/22 12:35 Stool Stool Occult Blood (JEANNA) - Final 08/18/22 09:50 Urine, Clean Catch Urine Culture - Preliminary Presumptive E. coli 08/18/22 10:20 Stool Stool Occult Blood (JEANNA) - Final 08/18/22 10:20 Stool Enteric Bacteriology - Final 08/18/22 10:20 Stool C. difficile GDH Antigen & Toxins - Final Radiography Diagnostic Testing: Radiology Impression Gallbladder Ultrasound 08/19/22 07:20 IMPRESSION: Fatty infiltration of the liver. Small amount of sludge is seen within the gallbladder lumen. Electronically Signed: Wilfred Pittman MD at 13:33 EDT , Physical Exam Narrative Well-developed well-nourished no acute distress. Remains confused. HEENT: Moist mucous membranes no thrush Extraoculars are intact, sclera anicteric Lungs are clear bilaterally with no wheezes rales or rhonchi Cardiac murmur unchanged Abdomen is soft, firm, nontender, no organomegaly or mass. Extremities have no clubbing cyanosis or edema, abrasions on the first to left toes are unchanged and healing. Some bruising/abrasion of the left anterior rodarte , no edema Neurologic is nonfocal Skin is warm and dry. Charges/Coding Visit Charges Inpatient E&M: 39435 Subs Hosp L3
[2022-08-20] MEDS: Ensure Plus High Protein 120 ML LIQUID PO ×2 (09:38→21:25)
[2022-08-20] MEDS: Aspirin E.C. 81 MG Tablet PO (09:38)
[2022-08-20] MEDS: Enoxaparin 30 MG/0.3 ML Syringe SC (09:38)
[2022-08-20 09:40] LABS: Pathologist Review Reviewed
[2022-08-20] MEDS: 0.9% Saline Lock 10 ML Syringe IV (09:40)
--- NOTE | 2022-08-20 09:43 | PN.HOSP_ITS ---
Subjective Subjective Doing well, no issues overnight Objective Data Objective Data Vital Signs: Vital Signs Temp Pulse Resp BP Pulse Ox O2 Del Method 99.0 F 83 14 157/65 H 96 Room Air 08/20/22 08:00 08/20/22 08:00 08/20/22 08:00 08/20/22 08:00 08/20/22 08:00 08/20/22 08:00 Oxygen Delivery Method Room Air Weight: 141 lb 1.533 oz Body Mass Index (BMI) 22.7 Intake & Output: Intake and Output for Last 24 Hours 08/19/22 08/20/22 08/21/22 03:59 03:59 03:59 Intake Total 2857.04 / 2859.87 3339.21 / 3339.21 407.5 / 407.5 Output Total 2850 / 2850 1950 / 1950 800 / 800 Balance 7.04 / 9.87 1389.21 / 1389.21 -392.5 / -392.5 Lab / Micro Data Result Diagrams: 08/20/22 03:00 08/20/22 03:00 Labs: Laboratory Results - last 24 hr 08/19/22 14:25: Hgb 9.5 L, Hct 29.6 L 08/20/22 03:00: WBC 10.2, RBC 3.08 L, Hgb 8.4 L, Hct 26.9 L, MCV 87.3, MCH 27.3, MCHC 31.2 L, RDW Std Deviation 52.0 H, RDW Coeff of Zhao 16.2 H, Plt Count 274, MPV 10.7, Immature Gran % (Auto) 0.500, Neut % (Auto) 61.3, Lymph % (Auto) 8.4 L , Stephens % (Auto) 6.7, Eos % (Auto) 22.6 H, Baso % (Auto) 0.5, Absolute Neuts (auto) 6.3, Absolute Lymphs (auto) 0.86, Nucleated RBC % 0, Differential Comment SCANNED, Diff Path Review Reviewed 08/20/22 03:00: Sodium 145, Potassium 5.1, Chloride 117 H, Carbon Dioxide 22.0, Anion Gap 6, BUN 31 H, Creatinine 1.52 H, Estim Creat Clear Calc 32.97, Est GFR (MDRD) Af Amer 57 L, Est GFR (MDRD) Non-Af 47 L, BUN/Creatinine Ratio 20.4 H, Glucose 90, Calcium 8.0 L, Total Bilirubin 0.90, AST 64 H, ALT 110 H, Alkaline Phosphatase 311 H, Total Protein 6.0 L, Albumin 2.5 L, Globulin 3.5, Albumin/Globulin Ratio 0.7 L Micro: Microbiology 08/18/22 09:55 Blood Culture (Wb) - Right Forearm Blood Culture - Pre liminary No growth in 48 hours. 08/18/22 09:30 Blood Culture (Wb) - Anticubital Left Blood Culture - Preliminary No growth in 48 hours. 08/19/22 12:35 Stool Stool Occult Blood (JEANNA) - Final 08/18/22 09:50 Urine, Clean Catch Urine Culture - Preliminary Presumptive E. coli 08/18/22 10:20 Stool Stool Occult Blood (JEANNA) - Final 08/18/22 10:20 Stool Enteric Bacteriology - Final 08/18/22 10:20 Stool C. difficile GDH Antigen & Toxins - Final Radiography Diagnostic Testing: Radiology Impression Gallbladder Ultrasound 08/19/22 07:20 IMPRESSION: Fatty infiltration of the liver. Small amount of sludge is seen within the gallbladder lumen. Electronically Signed: Wilfred Pittman MD at 13:33 EDT , Physical Exam Narrative General: Alert, Oriented x3, Cooperative, No apparent distress HEENT: Atraumatic, PERRLA, EOMI, Normocephalic Oral: Moist mucosa Neck: Supple, No JVD Lungs: Clear to auscultation, Normal air movement, No rhonchi, No wheeze, No rales Cardiovascular: Regular rate, Regular Rhythm, Normal S1, Normal S2, murmurs Abdomen: Soft, Non Tender, Non-Distended, No Hepato-splenomegaly Extremities: No edema, Capillary Refill Less than 3 Seconds Skin: Rash has resolved Musculoskeletal: No Tenderness to Palpation of Joints or Extremities Neurological: Motor Exam 5/5 strength throughout, Sensory exam intact to light touch and pain Psych/Mental Status: Normal Affect, Appropriate Assessment & Plan Assessment/Plan (1) Acute hyperkalemia: (2) Dehydration: (3) Acute renal failure: PLAN: Plan 1. Acute renal failure secondary to dehydration from poor p.o. and continued Lasix and hyperkalemia secondary to dehydration, SHANTHI as well as continued potassium supplementation/rash/septic shock gastroenteritis versus UTI ?Hold his Lasix as well as his potassium and lisinopril ? Rash has resolved ?Shock has resolved likely related to UTI ?Off Levophed, sensitivities are pending once back can de-escalate ? Renal function and potassium are normalizing ? Transition back to normal saline ? IgE is pending secondary to eosinophilia, he does have a history of psoriasis, O&P as well as Giardia were sent given his eosinophilia in the setting of diarrhea ? Urine culture with 80,000 100,000 CFU of E. coli sensitivities are pending, UA was unremarkable on admission with nothing abnormal 2. HTN/HLD/chronic diastolic CHF/aortic stenosis ?We will continue to hold his Lasix and lisinopril but can restart his Coreg ? Continue with aspirin DVT: Lovenox Charges/Coding Visit Charges Inpatient E&M: 68524 Subs Hosp L2
[2022-08-20 11:39] LABS: Procalcitonin 0.15 ng/mL (0.00-0.09)
--- NOTE | 2022-08-20 13:37 | CASEMGMT ---
SALENA VALDEZ NOTE: Pt has been transferred to PCU room 123. SALENA VALDEZ to room. Pt sitting up in chair in room. and son @ bedside. They state they observed pt working w/therapy today. states she still feels safe for pt to return home, as they have the boys' help. Pt also states feels safe to return home and that is his wishes. They were made aware [facility] able to accept him and they will work w/pt again once he returns home. They voice appreciation. They deny having any other discharge planning needs or concerns at this time. Advised to ask for CM if anything further arises. Jaspal PUENTE RN, CM
[2022-08-20] MEDS: Carvedilol 3.125 MG TABLET PO (16:50)
[2022-08-20] MEDS: Tamsulosin HCl 0.4 MG Capsule PO (18:51)
[2022-08-20] MEDS: 0.9% Normal Saline 1,000 ML 75 ML IV (21:22)
[2022-08-20] MEDS: Atorvastatin Calcium 40 MG Tablet PO (21:34)
[2022-08-21 03:29] VITALS: BMI 23.6
[2022-08-21 03:47] VITALS: BP 134/53; PULSE 80; RESP 16; TEMP 36.6; O2SAT 96
[2022-08-21 03:50] VITALS: O2SAT 94
[2022-08-21 05:52] LABS: Absolute Lymphocyte Count 0.91 X10^3/uL (0.83-4.51); Absolute Neutrophil Count 5.3 X10^3/uL (2.0-7.7); Basophil# 0.06 X10^3/uL; Basophil% 0.6 % (0-1); Eosinophils% 25.2 % (0-5); Hematocrit 26.6 % (40-54); Hemoglobin 8.7 g/dL (13.0-16.5); Lymphocyte # 0.91 X10^3/ul (0.83-4.51); Lymphocyte % 9.8 % (19-41); Mean Corp Hgb Conc 32.7 g/dL (32-36); Mean Corpuscular Volume 85.5 fL (80-94); Mean Platelet Vol. 10.6 fl (6.2-12.0); Monocyte# 0.64 X10^3/uL; Monocyte% 6.9 % (0-10); NRBC Flagged by Analyzer 0 % (0-5); Neutrophil # 5.29 X10^3/uL (2.7-7.7); Neutrophil % 56.9 % (47-70); POSITIVE DIFFERENTIAL YES; Platelet Count 272 K/mm3 (150-450); RBC Distribution Width CV 15.6 % (11.6-14.6); RBC Distribution Width SD 48.7 fl (35.1-43.9); Red Blood Count 3.11 M/mm3 (4.6-6.2); White Blood Count 9.3 K/mm3 (4.4-11.0)
[2022-08-21 05:56] LABS: Differential Indicated SCAN CRITERIA MET; Eosinophil# 2.34 X10^3/uL
[2022-08-21 06:16] LABS: Differential Comment SCANNED
[2022-08-21 06:34] LABS: Anion Gap 6 (5-15); BUN 17 mg/dL (7-18); Calcium,Total 8.2 mg/dL (8.5-10.1); Chloride 115 mmol/L (98-107); Creatinine, Serum 1.21 mg/dL (0.70-1.30); EST Glomerular Filtration Rate 61 mL/min (>60); Est Glom Filt Rate - Afr Amer 74 mL/min (>60); Estimated Creatinine Clearance 41.74 ml/min; Glucose 89 mg/dL (74-106); Potassium 4.4 mmol/L (3.5-5.1); Sodium Level 141 mmol/L (136-145)
[2022-08-21 07:09] LABS: Magnesium 1.7 mg/dL (1.6-2.6)
[2022-08-21 08:36] VITALS: BP 144/62; PULSE 90
[2022-08-21] MEDS: Carvedilol 3.125 MG TABLET PO (08:39)
[2022-08-21] MEDS: Enoxaparin 40 MG/0.4 ML Syringe SC (08:40)
[2022-08-21 08:43] VITALS: O2SAT 99
[2022-08-21] MEDS: Aspirin E.C. 81 MG Tablet PO (08:44)
[2022-08-21 10:25] VITALS: BP 127/58; PULSE 78; RESP 18; TEMP 36.6; O2SAT 99
--- NOTE | 2022-08-21 11:50 | PCM.DC ---
Discharge Instructions Diet Discharge Diet: Low fat / Low cholesterol Activity Discharge Activity: Return to Normal Activity Dressing / Incision Call your doctor if you observe: Fever of 101 or Higher, Shortness of breath, Dizziness, Fainting spells, Swelling in the ankles, Chest pain and Increased palpitations (irregular heartbeat) Follow Up Care Test Results: Test results from this visit will be discussed in further detail at your follow-up appointment, if applicable. Discharge Plan Admission Admit Date/Time: 08/17/22 12:22 Attending Provider: Jasvir Zarco Primary Care Provider: Efrain Barahona Consulting Providers: Donald Benson ; Jean Russo ; Hung Tamez ; Ketan Allen ; Evita Morataya MACHINE CLEANER Instructions Additional Instructions / Restrictions: Follow-up with your PCP in 3 to 5 days to obtain lab work to monitor your kidney function as well as your anemia. Discharge Orders/Prescriptions Prescriptions: New tamsulosin 0.4 mg Capsule 0.4 mg PO DAILY@1730 30 Days Qty: 30 0RF cephalexin 500 mg capsule 500 mg PO Q8H 3 Days Qty: 9 0RF Continued atorvastatin 40 mg tablet 40 mg PO QHS aspirin 81 mg tablet,delayed release (DR/EC) 81 mg PO BREAKFAST carvedilol 3.125 mg tablet 3.125 mg PO BIDCM Held furosemide [Lasix] 40 mg tablet 40 mg PO BID Hold Instructions: Resume on 08/25/22. lisinopril 20 mg tablet 20 mg PO DAILY Hold Instructions: Resume on 08/24/22. potassium chloride 20 mEq tablet,ER particles/crystals 20 meq PO DAILY Hold Instructions: Resume on 08/28/22. Referrals / Follow Up: Efrain Barahona DO [Primary Care Provider] - Within 1 Week Disposition Disposition (needs filled in before D/C Order can be placed): Home, Self Care
--- NOTE | 2022-08-21 12:07 | PHA.DC.MC ---
Pharmacy Service has performed discharge medication reconciliation and counseling for this patient. Patient requested meds to beds, this [facility] called retail and requested delivery. 1. CEPHALEXIN 500MG PO Q8 X 3 DAYS 2. TAMSULOSIN 0.4MG PO DAILY The patient's discharge medication list was reviewed for discrepancies and discrepancies were resolved. Home Medications aspirin 81 mg tablet,delayed release 81 mg PO BREAKFAST heart health 08/17/22 atorvastatin 40 mg tablet 40 mg PO QHS cholesterol 08/17/22 carvedilol 3.125 mg tablet 3.125 mg PO BIDCM heart 08/17/22 furosemide 40 mg tablet (Lasix) 40 mg PO BID fluid 08/17/22 lisinopril 20 mg tablet 20 mg PO DAILY blood pressure 08/17/22 potassium chloride 20 mEq tablet,extended release(part/cryst) 20 meq PO DAILY supplement 08/17/22 cephalexin 500 mg capsule 500 mg PO Q8H 3 days #9 caps 08/21/22 tamsulosin 0.4 mg capsule 0.4 mg PO DAILY@1730 30 days #30 caps 08/21/22 The patient was counseled on the following discharge medications and changes in medications for homegoing were reviewed. The Reason for Use, instructions for use, and potential side effects were reviewed for all new medications. The patient's questions regarding all of their medications were answered. The patient was able to verbally demonstrate an understanding of their discharge medications. Patient counseled by deliverer pharmacyJorge.
[2022-08-21 13:30] LABS: Pathologist Review Reviewed
--- NOTE | 2022-08-21 13:37 | CASEMGMT ---
RN CM in to discuss needs at discharge. Patient discharging home with [facility]. Patient and family denied further needs at this time. RN CM sent discharge instructions to [facility].
--- NOTE | 2022-08-21 17:25 | PCM.DC.SUM ---
Providers Date of Admission: 08/17/22 Primary Care Physician: Dr. Efrain Barahona, Consultations 08/19/22 07:23 Consult: Embroidery Supervisor / Pulmonary Medicine Routine Consulting Provider: Pulmonary Medicine javan Cee Reason for Consult: Shock unknown etiology EMERGENT Consult: No MD Notified: Yes Date Notified: 08/19/22 Time Notified: 07: Method of Notification: Verbal Reason For Visit: SHANTHI WITH HYPERKALEMIA Diagnosis Discharge Diagnosis (1) Acute hyperkalemia: Status: Acute Code(s): E87.5 - Hyperkalemia (2) Dehydration: Status: Acute Code(s): E86.0 - Dehydration (3) Acute renal failure: Status: Acute Code(s): N17.9 - Acute kidney failure, unspecified Medications at Discharge Home Medications aspirin 81 mg tablet,delayed release 81 mg PO BREAKFAST heart health 08/17/22 atorvastatin 40 mg tablet 40 mg PO QHS cholesterol 08/17/22 carvedilol 3.125 mg tablet 3.125 mg PO BIDCM heart 08/17/22 furosemide 40 mg tablet (Lasix) 40 mg PO BID fluid 08/17/22 lisinopril 20 mg tablet 20 mg PO DAILY blood pressure 08/17/22 potassium chloride 20 mEq tablet,extended release(part/cryst) 20 meq PO DAILY supplement 08/17/22 cephalexin 500 mg capsule 500 mg PO Q8H 3 days #9 caps 08/21/22 tamsulosin 0.4 mg capsule 0.4 mg PO DAILY@1730 30 days #30 caps 08/21/22 Hospital Course Operations None Procedures None Summary of Care Provided Minutes Spent on Discharge: 34 Hospital Course: Per HPI: ARRON SUMMERS, is a 82 M who presents to the hospital with generalized weakness and a rash.? Is unclear as to what initiated the rash, family feels that it is due to some blackberry wine but they were giving him.? The weakness is started about the last week or so and since that time he has had some episodes of incontinence so family put him in adult diapers.? He has not been eating or drinking secondary to a lack of appetite.? On admission today for evaluation of his rash he was found to be hyperkalemic with potassium of 7.7 which was treated in the ER and also having acute renal failure with creatinine of 3.91 which is consistent with dehydration as his baseline creatinine is around 1.2 Hospital Course: 1. Acute renal failure secondary to dehydration from poor p.o. and continued Lasix and hyperkalemia as well as septic shock from a E. coli UTI/rash ? Rash has resolved ?Shock has resolved, related to E. coli UTI ?Off Levophed, sensitivities are pending once back can de-escalate ? Renal function and potassium are back to normal ? IgE is pending secondary to eosinophilia, he does have a history of psoriasis, O&P as well as Giardia were sent given his eosinophilia in the setting of diarrhea, unfortunately these are send out labs so will take a while to come back and he would like to go home ? Urine culture with 80,000 100,000 CFU of E. coli sensitivities are pending, UA was unremarkable on admission with nothing abnormal ? I discussed with him plan for possible discharge today both he and his expressed understanding of the risk benefits going home and are okay with going home today. He is much more alert, his creatinine is back to baseline. His [place] was removed and he was able to urinate with no significant postvoid residual. We will continue him on Flomax on discharge to prevent further retention issues. We will restart his lisinopril on Wednesday and his Lasix on Wednesday. Also restart his potassium next week. I do recommend that he follow-up with his PCP in 3 to 5 days for continued outpatient monitoring of his lab work. Can resume his Coreg on discharge. We will also plan for 3 more days of Keflex. 2. HTN/HLD/chronic diastolic CHF/aortic stenosis Physical Exam Narrative General: Alert, Oriented x3, Cooperative, No apparent distress HEENT: Atraumatic, PERRLA, EOMI, Normocephalic Oral: Moist mucosa Neck: Supple, No JVD Lungs: Clear to auscultation, Normal air movement, No rhonchi, No wheeze, No rales Cardiovascular: Regular rate, Regular Rhythm, Normal S1, Normal S2, murmurs Abdomen: Soft, Non Tender, Non-Distended, No Hepato-splenomegaly Extremities: No edema, Capillary Refill Less than 3 Seconds Skin: Rash has resolved Musculoskeletal: No Tenderness to Palpation of Joints or Extremities Neurological: Motor Exam 5/5 strength throughout, Sensory exam intact to light touch and pain Psych/Mental Status: Normal Affect, Appropriate Weight / BMI Weight Weight: 146 lb 11.2 oz Body Mass Index (BMI) 23.6 ABG / Lab / Microbiology Data Result Diagrams: 08/21/22 05:24 08/21/22 05:24 Laboratory: Laboratory Results - last 24 hr 08/21/22 05:24: WBC 9.3, RBC 3.11 L, Hgb 8.7 L, Hct 26.6 L, MCV 85.5, MCH 28.0, MCHC 32.7, RDW Std Deviation 48.7 H, RDW Coeff of Zhao 15.6 H, Plt Count 272, MPV 10.6, Immature Gran % (Auto) 0.600, Neut % (Auto) 56.9, Lymph % (Auto) 9.8 L, Dundy % (Auto) 6.9, Eos % (Auto) 25.2 H, Baso % (Auto) 0.6, Absolute Neuts (auto) 5.3, Absolute Lymphs (auto) 0.91, Nucleated RBC % 0, Differential Comment SCANNED, Diff Path Review Reviewed 08/21/22 05:24: Sodium 141, Potassium 4.4, Chloride 115 H, Carbon Dioxide 20.0 L, Anion Gap 6, BUN 17, Creatinine 1.21, Estim Creat Clear Calc 41.74, Est GFR (MDRD) Af Amer 74, Est GFR (MDRD) Non-Af 61, BUN/Creatinine Ratio 14.0, Glucose 89, Calcium 8.2 L 08/21/22 05:24: Magnesium 1.7 Microbiology: Microbiology 08/18/22 09:50 Urine, Clean Catch Urine Culture - Final Presumptive E. coli 08/18/22 09:55 Blood Culture (Wb) - Right Forearm Blood Culture - Preliminary No growth in 48 hours. 08/18/22 09:30 Blood Culture (Wb) - Anticubital Left Blood Culture - Preliminary No growth in 48 hours. 08/19/22 12:35 Stool Stool Occult Blood (JEANNA) - Final 08/18/22 10:20 Stool Stool Occult Blood (JEANNA) - Final 08/18/22 10:20 Stool Enteric Bacteriology - Final 08/18/22 10:20 Stool C. difficile GDH Antigen & Toxins - Final D/C Instructions Discharge Diet: Low fat / Low cholesterol Call your doctor if you observe: Fever of 101 or Higher, Shortness of breath, Dizziness, Fainting spells, Swelling in the ankles, Chest pain and Increased palpitations (irregular heartbeat) Meaningful Use Info Meaningful Use Diagnoses (Choose all that apply): None applicable Discharge Plan Admission Admit Date/Time: 08/17/22 12:22 Attending Provider: Jasvir Zarco Primary Care Provider: Efrain Barahona Consulting Providers: Donald Benson ; Jean Russo ; Hung Tamez ; Ketan Allen ; Evita Morataya BARKING MACHINE FEEDER Instructions Additional Instructions / Restrictions: Follow-up with your PCP in 3 to 5 days to obtain lab work to monitor your kidney function as well as your anemia. Discharge Orders/Prescriptions Prescriptions: New tamsulosin 0.4 mg Capsule 0.4 mg PO DAILY@1730 30 Days Qty: 30 0RF cephalexin 500 mg capsule 500 mg PO Q8H 3 Days Qty: 9 0RF Continued atorvastatin 40 mg tablet 40 mg PO QHS aspirin 81 mg tablet,delayed release (DR/EC) 81 mg PO BREAKFAST carvedilol 3.125 mg tablet 3.125 mg PO BIDCM Held furosemide [Lasix] 40 mg tablet 40 mg PO BID Hold Instructions: Resume on 08/25/22. lisinopril 20 mg tablet 20 mg PO DAILY Hold Instructions: Resume on 08/24/22. potassium chloride 20 mEq tablet,ER particles/crystals 20 meq PO DAILY Hold Instructions: Resume on 08/28/22. Referrals / Follow Up: Efrain Barahona DO [Primary Care Provider] - 08/31/22 11:00 am Disposition Disposition (needs filled in before D/C Order can be placed): Home, Self Care Charges/Coding Visit Charges Inpatient E&M: 49174 Disch Hosp >30min
[2022-08-26 14:09] LABS: Immunoglobulin E 65 IU/mL (6-495)
== END 2022-08-21 15:15 | disposition home or self-care (01) | DRG 682 ==
LOC: ED 12:10 → ICU 12:56 → PCU 08-20 13:21
PROVIDERS: Hospitalist; Internal Medicine; Admitting Provider Family Medicine; Emergency Provider Emergency Medicine; PCP Family Medicine; Visit Provider Family Medicine
DX: N17.9 Acute kidney failure, unspecified (principal); A41.9 Sepsis, unspecified organism; R65.21 Severe sepsis with septic shock; I50.32 Chronic diastolic (congestive) heart failure; N39.0 Urinary tract infection, site not specified; D72.10 Eosinophilia, unspecified; I11.0 Hypertensive heart disease with heart failure; E86.0 Dehydration; E87.5 Hyperkalemia; E78.00 Pure hypercholesterolemia, unspecified; I35.0 Nonrheumatic aortic (valve) stenosis; L40.9 Psoriasis, unspecified; A08.4 Viral intestinal infection, unspecified; B96.20 Unspecified Escherichia coli [E. coli] as the cause of diseases classified elsewhere; Z79.82 Long term (current) use of aspirin; Z79.899 Other long term (current) drug therapy; Z87.891 Personal history of nicotine dependence
CPT/HCPCS: 36415; 71045; 76705; 80048; 80053; 81001; 82274; 82785; 83735; 83880; 84145; 84484; 85014; 85018; 85025; 86850; 86900; 86901; 86920; 86922; 87040; 87086; 87088; 87186; 87329; 87506; 93005; 94640; 97110; 97112; 97116; 97162; 97166; 97530; 97535; 97802; 97803; 99285; J7030; J7040; J7050; P9612; A4216; J0612

== ENCOUNTER 2022-08-26 18:54 | Emergency (ER) | payer OTHER, SELFPAY ==
[2022-08-26 18:56] VITALS: BP 116/61; PULSE 83; RESP 14; TEMP 36.1; O2SAT 96
[2022-08-26 19:10] VITALS: BP 116/61; PULSE 83; RESP 14; TEMP 36.9; O2SAT 96; BMI 24.6
--- NOTE | 2022-08-26 19:15 | EKG12_ITS ---
Test Reason : SOB Blood Pressure : / mmHG Vent. Rate : 092 BPM Atrial Rate : 092 BPM P-R Int : 136 ms QRS Dur : 082 ms QT Int : 346 ms P-R-T Axes : 054 050 097 degrees QTc Int : 427 ms Sinus rhythm with Premature atrial complexes with Aberrant conduction Nonspecific T wave abnormality Abnormal ECG Confirmed by PARUL JAMESON, JAVY ([id number]), newspaper editor managing SUDHEER NIELSON ([id number]) on 08/28/2022 10:16:31 AM Referred By: Confirmed By:JAVY TERAN MD
--- NOTE | 2022-08-26 19:16 | EX.ED.DYSGE1 ---
HPI History of Present Illness Chief Complaint: Shortness of Breath Detail of Chief Complaint: Leg swelling and generalized weakness and fever Informant: patient Narrative Narrative: Patient presents to the emergency department with complaint of generalized weakness today. Patient was admitted for renal failure and hyperkalemia and discharged 5 days ago from this hospital. Prior to today he was able to walk with a walker but now too weak to ambulate. They noticed increased welling of his legs today. Patient also had a low-grade fever up to 100.1 today for the first day. He has had no cough. He has had some dysuria and urinary incontinence. He denies abdominal pain. He denies back pain. He describes minimal dyspnea with exertion. [facility] Medical History (Updated 08/26/22 @ 21:[address] Liliana Panchal DO) (HFpEF) heart failure with preserved ejection fraction Aortic valve stenosis, moderate BPH (benign prostatic hyperplasia) Cardiac murmur CHF (congestive heart failure) E. coli UTI (urinary tract infection) Elevated blood pressure reading in office without diagnosis of hypertension Eosinophilia Essential hypertension Gastroenteritis Irregular heart rate Mitral valve annular calcification Nonrheumatic aortic (valve) stenosis with insufficiency Psoriasis Septic shock Urinary retention Home Medications aspirin 81 mg tablet,delayed release 81 mg PO BREAKFAST [facility] health 08/17/22 [History Last Taken 08/16/22] atorvastatin 40 mg tablet 40 mg PO QHS cholesterol 08/17/22 [History Last Taken 08/16/22] carvedilol 3.125 mg tablet 3.125 mg PO BIDCM heart 08/17/22 [History Last Taken 08/16/22] furosemide 40 mg tablet (Lasix) 40 mg PO BID fluid 08/17/22 [History Last Taken 08/16/22] lisinopril 20 mg tablet 20 mg PO DAILY blood pressure 08/17/22 [History Last Taken 08/16/22] potassium chloride 20 mEq tablet,extended release(part/cryst) 20 meq PO DAILY supplement 08/17/22 [History Last Taken 08/16/22] cephalexin 500 mg capsule 500 mg PO Q8H 3 days #9 caps 08/21/22 [Rx Last Taken Unknown] tamsulosin 0.4 mg capsule 0.4 mg PO DAILY@1730 30 days #30 caps 08/21/22 [Rx Last Taken Unknown] Allergy/AdvReac Type Severity Reaction Status Date / Time No Known Allergies Allergy Verified 08/26/22 18:56 Family History (Updated 08/17/22 @ 12:[address] Jasvir Zarco MD) Other Hypertension Surgical History H/O cystoscopy (05/20/21) H/O transurethral resection of prostate (04/2020) History of excision of pilonidal cyst (05/20/21) History of hand surgery History of right knee surgery Social History Smoking Status: Former smoker alcohol intake: never substance use type: does not use caffeine: Yes maria fernanda/bahai: Fitz ROS ROS ED Review of Systems ROS Unobtainable: other Constitutional Constitutional ED: Reports lethargy; Denies chills, fever(s), sweats or weight loss Eyes Eyes: Denies blurry vision, change in vision or diplopia ENT ENT ED: Denies rhinorrhea or sore throat Cardiovascular Cardiovascular: Denies chest pain, orthopnea or racing heartbeat Respiratory/Chest Respiratory/Chest: Reports dyspnea and dyspnea on exertion; Denies cough, orthopnea or sputum Gastrointestinal Gastrointestinal: Denies abdominal pain, diarrhea, nausea or vomiting Genitourinary Genitourinary ED: Denies dysuria, hematuria or urinary frequency Musculoskeletal Musculoskeletal: Reports other Details: Leg edema and generalized weakness ; Denies arthralgias, back pain, myalgias or neck pain Integumentary Denies abscess, Abrasions or rash Neurologic Neurologic: Reports weakness; Denies headache(s) Psychiatric Psychiatric: Denies anxiety, depression or suicidal thoughts Endocrine Endocrinology: Denies polydipsia, polyphagia or polyuria Hematologic/Lymphatic Hematologic/Lymphatic: Denies easy bleeding, easy bruising or lymphadenopathy Allergic/Immunologic Allergic/Immunologic ED: Denies mouth swelling, tongue swelling or urticaria EXAM Physical Exam Const Vital Signs: 08/26/22 18:56 08/26/22 19:10 08/26/22 19:12 Temperature 97 F L 98.4 F Temperature Source Temporal Oral Pulse Rate 83 83 Respiratory Rate 14 14 Respiratory Effort Normal Non-Labored Respiratory Depth Normal Respiratory Pattern Normal Blood Pressure 116/61 116/61 Blood Pressure Mean 79 79 Pulse Ox 96 96 Oxygen Delivery Method Room Air Room Air Room Air 06/14/23 20:34 Temperature Temperature Source Pulse Rate 89 Respiratory Rate 20 H Respiratory Effort Respiratory Depth Respiratory Pattern Blood Pressure Blood Pressure Mean Pulse Ox 99 Oxygen Delivery Method Room Air Positive well nourished and well developed General Appearance ED: well developed and NAD HEENT Reports TM's clear and moist mucous membranes normocephalic and atraumatic; Negative for trauma or tenderness Tympanic Membrane ED: Yes TM's clear Eyes PERRL and EOMs intact bilaterally General Eye ED: Negative for pale conjunctiva or scleral icterus Neck no lymphadenopathy, supple and no JVD General: Negative for tenderness Chest Wall inspection of chest normal and palpation of chest normal Chest: Negative for tenderness Resp normal respiratory effort and clear to auscultation bilaterally Resp Narrative: Febrile was in the 80s. No conversational dyspnea. No sensory muscle use or retractions. Effort and Inspection: Negative for respiratory distress or pain with movement Auscultation: rales; Negative for rhonchi, wheezes or diminished lung sounds Cardio regular rate, regular rhythm, S1 normal heart sound, S2 normal heart sound and no murmurs Peripheral Pulses: pulses 2+ throughout GI normal to inspection, nondistended, normoactive bowel sounds, soft to palpation, non-tender, non-distended and no masses Back/Spine no CVA tenderness and no thoracic nor lumbar tenderness Extremity normal to inspection Extremity Narrative: +1 edema both lower extremities. General Extremety ED: Yes edema General Extremity: edema Neuro oriented x3, CN's II-XII intact bilaterally, no sensory deficits noted and gait normal Sensorium / Orientation: awake, alert, oriented to person, oriented to place and oriented to time Motor Exam: strength 5/5 throughout and strength abnormal Psych mental status grossly normal Skin no rashes or lesions noted and no wounds MDM MDM MDM Narrative Medical decision making narrative: Patient presents to the emergency department with shortness of breath and swelling in his legs and fever today. In the differential would be infectious etiology for the fever although he has no respiratory symptoms of cough. Patient had recent admission and was taken off his Lasix because of acute kidney injury and was told to start back on his Lasix today which she did. I suspect the edema in his legs may be related to being off his Lasix. CBC with differential obtained for work-up of 13.2 with a hemoglobin of 9.2 and a hematocrit of 28.5. Platelet count 327. Chemistries unremarkable. BNP was elevated at 397. Troponin normal at 37. EKG showed a sinus rhythm with a rate of 92 bpm with PACs and nonspecific ST changes. 1 view chest x-ray showed no acute disease process. This point etiology of his fever unclear as his urinalysis is normal and his chest x-ray is unremarkable. No other symptoms of infection. There is no rash. He has no abdominal pain. I discussed with family members that are with him that etiology of his fever is unclear. Did offer to admit him if he was too weak to go home but family is comfortable taking him home. They will continue with his Lasix as indicated. He will return if other signs of infection or high fevers or vomiting or condition should worsen anyway. Lab Data Attestation: I reviewed the patient's lab results. Labs: Laboratory Results - last 24 hr 08/26/22 08/26/22 08/26/22 19:25 19:25 19:25 WBC 13.2 H RBC 3.34 L Hgb 9.2 L Hct 28.5 L MCV 85.3 MCH 27.5 MCHC 32.3 RDW Std Deviation 49.8 H RDW Coeff of Zhao 16.3 H Plt Count 327 MPV 9.9 Immature Gran % (Auto) 0.800 Neut % (Auto) 73.5 H Lymph % (Auto) 9.3 L [facility] % (Auto) 9.5 Eos % (Auto) 6.4 H Baso % (Auto) 0.5 Absolute Neuts (auto) 9.7 H Absolute Lymphs (auto) 1.23 Nucleated RBC % 0 Sodium 137 Potassium 3.7 Chloride 100 Carbon Dioxide 30.0 Anion Gap 7 BUN 23 H Creatinine 1.33 H Estim Creat Clear Calc 31.13 Est GFR (MDRD) Af Amer 66 Est GFR (MDRD) Non-Af 55 L BUN/Creatinine Ratio 17.3 Glucose 110 H Calcium 8.7 Troponin I High Sens 37 B-Natriuretic Peptide 397.7 H Urine Color Urine Clarity Urine pH Ur Specific [place] Urine Protein Urine Glucose (UA) Urine Ketones Urine Occult Blood Urine Nitrite Urine Bilirubin Urine Urobilinogen Ur Leukocyte Esterase Urine RBC Urine WBC Ur Squamous Epith Cells Urine Bacteria Urine Mucus 08/26/22 20:29 WBC RBC Hgb Hct MCV MCH MCHC RDW Std Deviation RDW Coeff of Zhao Plt Count MPV Immature Gran % (Auto) Neut % (Auto) Lymph % (Auto) [facility] % (Auto) Eos % (Auto) Baso % (Auto) Absolute Neuts (auto) Absolute Lymphs (auto) Nucleated RBC % Sodium Potassium Chloride Carbon Dioxide Anion Gap BUN Creatinine Estim Creat Clear Calc Est GFR (MDRD) Af Amer Est GFR (MDRD) Non-Af BUN/Creatinine Ratio Glucose Calcium Troponin I High Sens B-Natriuretic Peptide Urine Color Yellow Urine Clarity Clear Urine pH 5.0 Ur Specific [place] 1.015 Urine Protein Negative Urine Glucose (UA) Normal Urine Ketones Negative Urine Occult Blood Negative Urine Nitrite Negative Urine Bilirubin Negative Urine Urobilinogen Normal Ur Leukocyte Esterase Negative Urine RBC 0 SEEN Urine WBC 0 SEEN Ur Squamous Epith Cells 0-5 SEEN Urine Bacteria 0 SEEN Urine Mucus 0 SEEN Radiography Diagnostic Testing: Clinical Impression(s) from Imaging Studies Chest X-Ray 08/26/22 19:23 IMPRESSION: No acute cardiopulmonary disease or major interval change. Electronically Signed: Zachary Worrell DO at 19:40 EDT Reading Location ID and State: [address] [place] [address] Tel [phone], Service support , 1 view chest x-ray obtained interpreted by myself no evidence of infiltrate or pneumothorax or acute disease process. Radiology in agreement. EKG Initial EKG: Attestation: I personally reviewed and interpreted this EKG as follows: Comments: Sinus rhythm with rate of [address] changes. Discharge Plan Triage Chief Complaint: Shortness of Breath ED Provider: Liliana Panchal Dx/Rx/DC Orders Clinical Impression: Leg edema, Fever Instructions: ED Peripheral Edema, Bilateral, ED FUO Adult Prescriptions: No Action furosemide [Lasix] 40 mg tablet 40 mg PO BID Hold Instructions: Resume on 08/25/22. atorvastatin 40 mg tablet 40 mg PO QHS lisinopril 20 mg tablet 20 mg PO DAILY Hold Instructions: Resume on 08/24/22. aspirin 81 mg tablet,delayed release (DR/EC) 81 mg PO BREAKFAST carvedilol 3.125 mg tablet 3.125 mg PO BIDCM potassium chloride 20 mEq tablet,ER particles/crystals 20 meq PO DAILY Hold Instructions: Resume on 08/28/22. tamsulosin 0.4 mg Capsule 0.4 mg PO DAILY@1730 30 Days Qty: 30 0RF cephalexin 500 mg capsule 500 mg PO Q8H 3 Days Qty: 9 0RF Primary Care Provider: Efrain Barahona Referrals: Efrain Barahona DO [Primary Care Provider] - 3-5 Days Disposition Disposition: Home, Self Care
--- NOTE | 2022-08-26 19:23 | RAD_ITS ---
STUDY: X-RAY CHEST REASON FOR EXAM: Male, 82 years old. Shortness of breath. Fever. Bilateral lower extremity edema. Discharge from hospital for similar symptoms 5 days ago. Started back on diuretic today. TECHNIQUE: Single AP portable view of the chest. COMPARISON: August 17, 2022. FINDINGS: There is minimal interstitial prominence likely chronic. No new mass or infiltrate. There is no demonstrated pleural abnormality. Normal size heart. Normal mediastinum and maria elena. Normal visualized pulmonary arteries. There is atherosclerotic calcification of the aortic arch with tortuosity. No osseous changes. There is no demonstrated abnormality of the visualized soft tissue structures of the upper abdomen. RAD/Chest 1 View (Portable) IMPRESSION: No acute cardiopulmonary disease or major interval change. Electronically Signed: Zachary Worrell DO at 19:40 EDT ,
[2022-08-26 19:37] LABS: Absolute Lymphocyte Count 1.23 X10^3/uL (0.83-4.51); Absolute Neutrophil Count 9.7 X10^3/uL (2.0-7.7); Basophil# 0.06 X10^3/uL; Basophil% 0.5 % (0-1); Eosinophil# 0.84 X10^3/uL; Eosinophils% 6.4 % (0-5); Hematocrit 28.5 % (40-54); Hemoglobin 9.2 g/dL (13.0-16.5); Lymphocyte # 1.23 X10^3/ul (0.83-4.51); Lymphocyte % 9.3 % (19-41); Mean Corp Hgb Conc 32.3 g/dL (32-36); Mean Corpuscular Hgb 27.5 pg (27.0-32.0); Mean Corpuscular Volume 85.3 fL (80-94); Mean Platelet Vol. 9.9 fl (6.2-12.0); Monocyte# 1.25 X10^3/uL; Monocyte% 9.5 % (0-10); NRBC Flagged by Analyzer 0 % (0-5); Neutrophil % 73.5 % (47-70); Platelet Count 327 K/mm3 (150-450); RBC Distribution Width CV 16.3 % (11.6-14.6); RBC Distribution Width SD 49.8 fl (35.1-43.9); Red Blood Count 3.34 M/mm3 (4.6-6.2); White Blood Count 13.2 K/mm3 (4.4-11.0)
[2022-08-26 19:58] LABS: Anion Gap 7 (5-15); BUN 23 mg/dL (7-18); BUN/Creat Ratio 17.3 RATIO (10-20); Calcium,Total 8.7 mg/dL (8.5-10.1); Chloride 100 mmol/L (98-107); Creatinine, Serum 1.33 mg/dL (0.70-1.30); EST Glomerular Filtration Rate 55 mL/min (>60); Est Glom Filt Rate - Afr Amer 66 mL/min (>60); Estimated Creatinine Clearance 31.13 ml/min; Glucose 110 mg/dL (74-106); Potassium 3.7 mmol/L (3.5-5.1); Sodium Level 137 mmol/L (136-145); Troponin-I HS 37 pg/mL (3.0-78.0)
[2022-08-26 20:00] LABS: BNP,B-Type NATRIURETIC PEPTIDE 397.7 pg/mL (0-100)
[2022-08-26 20:34] VITALS: PULSE 89; RESP 20; O2SAT 99
[2022-08-26] MEDS: Furosemide 40 MG/4 ML Vial IV (20:42)
[2022-08-26] MEDS: 0.9% Normal Saline 1,000 ML 15 ML IV (20:45)
[2022-08-26 20:49] LABS: Bacteria 0 SEEN /hpf (None Seen); Mucous, Urine 0 SEEN /hpf (<or=2+); Red Blood Cells-Urine 0 SEEN /hpf (0-5); White Blood Cells 0 SEEN /hpf (0-5)
[2022-08-26 20:52] LABS: Color, Urine Yellow (Yellow); Glucose, Dipstick Normal (Normal); Ketone-Dipstick Negative (Negative); Leukocyte Esterase-Dipstick Negative /ul (Negative); Nitrite-Dipstick Negative (Negative); Occult Blood-Urine Negative /ul (Negative); Protein-Dipstick Negative (Negative); Specific Gravity, Urine 1.015 (1.002-1.030); Urine Bilirubin Dipstick Negative (Negative); Urine Clarity Clear (Clear); Urine Urobilinogen Normal (Normal)
[2022-08-26 21:00] VITALS: PULSE 92; RESP 25; O2SAT 94
[2022-08-26 21:17] LABS: Squamous Epithelial Cells - UA 0-5 SEEN /hpf (0-5)
[2022-08-26 21:30] VITALS: PULSE 94; RESP 24; O2SAT 98
== END 2022-08-26 21:53 | disposition home or self-care (01) ==
PROVIDERS: Emergency Provider Emergency Medicine; PCP Family Medicine; Visit Provider Emergency Medicine
DX: R60.0 Localized edema (principal); I11.0 Hypertensive heart disease with heart failure; I50.32 Chronic diastolic (congestive) heart failure; R50.9 Fever, unspecified; R32 Unspecified urinary incontinence; R53.1 Weakness; Z79.82 Long term (current) use of aspirin; Z79.899 Other long term (current) drug therapy; Z87.891 Personal history of nicotine dependence
CPT/HCPCS: 71045; 80048; 81001; 83880; 84484; 85025; 87040; 93005; 96374; 99283; J7030; J1940

== ENCOUNTER → 2022-11-10 | Outpatient (CLI) | payer SELFPAY, OTHER ==
--- NOTE | 2022-11-10 11:46 | CT_ITS ---
INDICATION: PARKINSONS EXAMINATION: CT BRAIN - CT Head or Brain W/O Contrast Injection TECHNIQUE: Multiple axial images were obtained of the head without intravenous contrast. A radiation dose optimization technique was used for this scan. IV Contrast dosage and agent: None. RADIATION DOSAGE (If Supplied By Facility): CTDIvol = ( 44.99 ) mGy, DLP = ( 812.98 ) mGycm COMPARISON: None. FINDINGS: BRAIN PARENCHYMA: No intra- or extra-axial hemorrhage. No evidence of acute infarct. No intracranial mass or mass effect. Decreased attenuation within the deep periventricular white matter compatible with microangiopathic white matter disease. Posterior fossa structures are unremarkable. CSF SPACES: Mild to moderate generalized brain atrophy. Nonspecific ventriculomegaly. Basal cisterns are patent. CALVARIUM, SKULL BASE, PARANASAL SINUSES AND MASTOID AIR CELLS: Mild mucosal thickening involving the frontal sinuses and bilateral ethmoids which may indicate sequela of prior sinusitis. No discrete lytic or blastic abnormalities. ORBITS: Both globes, extraocular muscles, optic nerves and retrobulbar fat appear unremarkable. CT/Brain/Head without Contrast IMPRESSION: Chronic changes as described. No acute intracranial hemorrhage or space-occupying lesion. Electronically Signed: Zoe Sousa, at 16:23 EDT ,
== END | disposition home or self-care (01) ==
PROVIDERS: PCP Family Medicine; Referring Provider Psychiatry & Neurology Neurology; Visit Provider Psychiatry & Neurology Neurology
DX: G20 Parkinson's disease (principal)
CPT/HCPCS: 70450

== ENCOUNTER → 2023-04-06 | Outpatient (CLI) | payer SELFPAY ==
--- NOTE | 2023-04-06 10:40 | RAD_ITS ---
STUDY: X-RAY CHEST REASON FOR EXAM: Male, 82 years old. SOB TECHNIQUE: PA and lateral views of the chest. COMPARISON: 08/26/2022 FINDINGS: Lungs are hyperexpanded with chronic interstitial changes, no superimposed process, no interval change. Normal size heart. Normal mediastinum and maria elena. Normal visualized pulmonary arteries. There is atherosclerotic calcification of the aortic arch with tortuosity. There are diffuse degenerative changes of the visualized thoracic spine. Normal visualized ribs, clavicles, and shoulders. There is no demonstrated abnormality of the visualized soft tissue structures of the upper abdomen. RAD/Chest PA and Lateral IMPRESSION: Hyperexpanded lungs with chronic interstitial changes, no superimposed acute pulmonary process Electronically Signed: Ravinder Benítez MD at 16:50 EST ,
[2023-04-06 11:27] LABS: Absolute Lymphocyte Count 1.62 X10^3/uL (0.83-4.51); Basophil# 0.07 X10^3/uL; Basophil% 0.8 % (0-1); Eosinophil# 0.41 X10^3/uL; Eosinophils% 4.6 % (0-5); Hematocrit 36.2 % (40-54); Hemoglobin 11.3 g/dL (13.0-16.5); Lymphocyte # 1.62 X10^3/ul (0.83-4.51); Lymphocyte % 18.1 % (19-41); Mean Corp Hgb Conc 31.2 g/dL (32-36); Mean Corpuscular Hgb 25.9 pg (27.0-32.0); Mean Platelet Vol. 10.9 fl (6.2-12.0); Monocyte# 0.79 X10^3/uL; Monocyte% 8.8 % (0-10); NRBC Flagged by Analyzer 0 % (0-5); Neutrophil # 6.02 X10^3/uL (2.7-7.7); Neutrophil % 67.5 % (47-70); Platelet Count 284 K/mm3 (150-450); RBC Distribution Width CV 15.5 % (11.6-14.6); RBC Distribution Width SD 47.5 fl (35.1-43.9); Red Blood Count 4.36 M/mm3 (4.6-6.2); White Blood Count 8.9 K/mm3 (4.4-11.0)
[2023-04-06 11:54] LABS: BNP,B-Type NATRIURETIC PEPTIDE 505.4 pg/mL (0-100)
[2023-04-06 12:00] LABS: ALB/GLOB Ratio 0.9 RATIO (0.9-2.4); AST(SGOT) 22 U/L (15-37); Alanine Aminotransfer ALT/SGPT 29 U/L (16-61); Albumin, Serum 3.9 g/dL (3.2-5.0); Alkaline Phosphatase 167 U/L (45-117); Anion Gap 4 (5-15); BUN 37 mg/dL (7-18); BUN/Creat Ratio 23.6 RATIO (10-20); Calcium,Total 8.8 mg/dL (8.5-10.1); Chloride 108 mmol/L (98-107); Creatinine, Serum 1.57 mg/dL (0.70-1.30); EST Glomerular Filtration Rate 45 mL/min (>60); Est Glom Filt Rate - Afr Amer 54 mL/min (>60); Ferritin 39 ng/mL (26-388); Globulin 4.3 g/dL (2.2-4.2); Glucose 91 mg/dL (74-106); Iron 56 ug/dL (65-175); Iron Binding Capacity,Total 395 ug/dL (250-450); Potassium 4.3 mmol/L (3.5-5.1); Protein, Total 8.2 g/dL (6.4-8.2); Sodium Level 139 mmol/L (136-145)
== END | disposition home or self-care (01) ==
PROVIDERS: PCP Family Medicine; Referring Provider Nurse Practitioner Family; Visit Provider Nurse Practitioner Family
DX: D64.9 Anemia, unspecified (principal); I50.30 Unspecified diastolic (congestive) heart failure; I35.0 Nonrheumatic aortic (valve) stenosis
CPT/HCPCS: 36415; 71046; 80053; 82728; 83540; 83550; 83880; 85025